=== PATIENT | female | born 1940 | race Caucasian/White ===

== ENCOUNTER 2016-09-24 11:43 | Inpatient (IN) | payer MEDICARE ==
[2016-09-24] MEDS ORDERED: NS 0.9% 1000 ML* 1,000 ML IV ONE (12:05)
[2016-09-24 12:22] LABS: Hematocrit 46 % (35-47); Hemoglobin 15.3 g/dl (12.0-16.0); Mean Corpuscular HGB Conc 34 g/dl (31-36); Mean Corpuscular Hemoglobin 30 pg (27-31); Mean Corpuscular Volume 88 fL (80-97); Mean Platelet Volume 11 um3 (7.4-10.4); Red Cell Distribution Width 15 % (10.5-15); White Blood Count 6.9 10^3/ul (3.5-10.8)
[2016-09-24 12:45] LABS: Albumin 3.4 g/dL (3.2-5.2); BUN/Creatinine Ratio 26.1 (8-20); C Reactive Protein 23.34 mg/L (< 5.00); Calcium 8.3 mg/dL (8.6-10.3); EGFR African American 46.4 (>60); EGFR Non-African American 36.1 (>60); Globulin 3.4 g/dL (2-4); Potassium 3.9 mmol/L (3.5-5.0); Total Bilirubin 0.3 mg/dL (0.2-1.0); Total Protein 6.8 g/dL (6.4-8.9)
[2016-09-24 12:47] LABS: Troponin I 0.01 ng/mL (<0.04)
--- NOTE | 2016-09-24 14:12 | RAD ---
Indication: Abdominal cramping. Flat and decubitus views of the abdomen demonstrates no free air. No dilated loops of bowel are noted. The colon is filled with stool. IMPRESSION: No free air or obstruction is noted.
[2016-09-24] MEDS ORDERED: metroNIDAZOLE TAB* 250 MG PO ONE (15:40)
[2016-09-24] MEDS ORDERED: Dextrose 50% Syringe 50 ML* 25 GM/50 ML SYRINGE IV PUSH PRN (16:24)
[2016-09-24] MEDS ORDERED: Acetaminophen TAB* 325 MG PO PRN (16:24)
[2016-09-24] MEDS ORDERED: Ondansetron INJ* 2 MG/ML VIAL IV PRN (16:24)
[2016-09-24] MEDS ORDERED: Albuterol HFA INHALER* 8 gm MDI INH PRN (16:27)
[2016-09-24] MEDS ORDERED: Warfarin TAB(*) 4 MG PO SCH (17:00)
[2016-09-24] MEDS: Insulin LISPRO* 1 UNITS UNIT SUBCUT SCH (17:21)
--- NOTE | 2016-09-24 17:35 | ED ---
Miquel Muñiz Alok, scribed for Juwan Garcia MD on 09/24/16 at 1328 . GI/ HPI - HPI Summary HPI Summary: 76 F presents to the ED with N/V/D since yesterday afternoon. 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 Pt last vomited at 0430 last night. Pt's inventory accountant also reports rectal bleeding with possible prolapse, leg swelling, and SOB. Pt is on Loperamide for chronic diarrhea and has had a cholecystectomy a few years prior. Pt denies any fever/chills and was last exposed to a sick grandchild with similar symptoms a few days ago. - History of Current Complaint Chief Complaint: EDAbdPain Time Seen by Provider: 09/24/16 11:58 Stated Complaint: WEAKNESS Hx Obtained From: Patient, Family/Wire Fence Erector Onset/Duration: Started Days Ago, Atraumatic, Still Present Timing: Constant, Lasting Days Severity: Moderate Current Severity: Moderate Pain Intensity: 0 Pain Characteristics: Cramping Associated Signs and Symptoms: Positive: Nausea, Vomiting, Diarrhea, Other: - Rectal Bleeding, SOB, LE edema. Negative: Diaphoresis, Fever Aggravating Factor(s): Nothing Alleviating Factor(s): Nothing - Additional Pertinent History Primary Care Physician: [id number] - Allergy/Home Medications Allergies/Adverse Reactions: Allergies Allergy/AdvReac Type Severity Reaction Status Date / Time No Known Allergies Allergy Verified 08/28/15 14:11 Home Medications: Home Medications Albuterol HFA INHALER* [Ventolin HFA Inhaler*] 1 puff INH Q4H PRN 09/24/16 [ History Confirmed 09/24/16] Lisinopril TAB* [Prinivil TAB*] 20 mg PO DAILY 09/24/16 [History Confirmed 09/24] Potassium Chloride Microencaps [Klor-Con M20] 20 meq PO DAILY 09/24/16 [History Confirmed 09/24/16] Pravastatin (NF) [Pravachol (NF)] 40 mg PO DAILY 09/24/16 [History Confirmed 12/05] Warfarin TAB(*) [Coumadin TAB(*)] 4 mg PO SUTUTHFRSA 09/24/16 [History Confirmed 09/24/16] glipiZIDE TAB.XL* [Glucotrol XL*] 5 mg PO QPM 09/24/16 [History Confirmed ] glipiZIDE TAB.XL* [Glucotrol XL*] 10 mg PO QAM 09/24/16 [History Confirmed 09/24] PMH/Surg Hx/FS Hx/Imm Hx Endocrine/Hematology History: Reports: Hx Diabetes, Hx Thyroid Disease - "operation" Cardiovascular History: Reports: Hx Cardiomegaly, Hx Congestive Heart Failure, Hx Coronary Artery Disease, Hx Hypercholesterolemia - HLD, Hx Hypertension, Other Cardiovascular Problems/Disorders - A-FIB Denies: Hx Pacemaker/ICD Respiratory History: Reports: Hx Chronic Bronchitis, Hx Pneumonia, Other Respiratory Problems/Disorders - PNEUMONIA 07/2013 Denies: Hx Asthma, Hx Chronic Obstructive Pulmonary Disease (COPD) GI History: Reports: Hx Gall Bladder Disease, Hx Gastroesophageal Reflux Disease , Hx Jaundice - RELATED TO GALLSTONES, Other GI Disorders - ERCP 2 weeks ago Denies: Hx Ulcer History: Reports: Other Problems/Disorders - RENAL FAILURE IN 2008- FUNCTION IMPROVED Denies: Hx Renal Disease Musculoskeletal History: Reports: Hx Arthritis - OSTEO- IN HANDS AND KNEES, Hx Gout, Other Musculoskeletal History - LEFT HUMERUS FX [id number] TENDER AT TIMES Denies: Hx Orthopedic Injury - NEW DX LEFT SHOULDER FX 07/03/13, Hx Osteoporosis Sensory History: Reports: Hx Cataracts - MILD, Hx Contacts or Glasses, Hx Glaucoma - SLIGHT-NO TREATMENT FOR Denies: Hx Hearing Aid Opthamlomology History: Reports: Hx Cataracts - MILD, Hx Contacts or Glasses, Hx Glaucoma - SLIGHT-NO TREATMENT FOR Neurological History: Reports: Hx Dementia, Hx Headaches - 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 PARTIAL THYROIDECTOMY. ERCP. choley Hx Anesthesia Reactions: Yes - SLOW TO WAKE UP AFTER ERCP - Immunization History Date of Tetanus Vaccine: PT STATES UNSURE Date of Influenza Vaccine: NONE Infectious Disease History: No Infectious Disease History: Denies: Hx Hepatitis, Hx Human Immunodeficiency Virus (HIV), History Other Infectious Disease, Traveled Outside the [place] in Last 30 Days - Family History Known Family History: Positive: Cardiac Disease, Hypertension - Social History Occupation: Retired Lives: Assisted Living Alcohol Use: None Substance Use Type: Reports: None Smoking Status (MU): Former Smoker Type: Cigarettes Amount Used/How Often: QUIT 50 YEARS AGO, USED ABOUT 1 YEAR Have You Smoked in the Last Year: No Review of Systems Negative: Fever Positive: Shortness Of Breath Positive: Vomiting, Diarrhea, Nausea Positive: other - Rectal bleeding Positive: Edema All Other Systems Reviewed And Are Negative: Yes Physical Exam - Summary Physical Exam Summary: VITAL SIGNS: Reviewed. GENERAL: ~Patient is a obese female who is lying comfortable in the stretcher. ~ Patient is not in any acute respiratory distress. HEAD AND FACE: Normocephalic EYES: PERRLA, EOMI x 2. EARS: Hearing grossly intact. MOUTH: Oropharynx within normal limits. NECK: Supple, trachea is midline, no adenopathy, no JVD, no carotid bruit. CHEST: Symmetric, no tenderness at palpation LUNGS: Clear to auscultation bilaterally. No wheezing or crackles. CVS: Regular rate and rhythm, S1 and S2 present, no murmurs or gallops appreciated. ABDOMEN: Soft, non-tender. Bowel sounds are normal. No abdominal abnormal pulsations. EXTREMITIES: Full ROM in all major joints, no edema, no cyanosis or clubbing. NEURO: Alert and oriented x 3. No acute neurological deficits. Speech is normal and follows commands. SKIN: Dry and warm. Increased Turgor. RECTAL: Watery stool. Large amount of external hemorrhoids but no external prolapse. Triage Information Reviewed: Yes Vital Signs On Initial Exam: Initial Vitals Pulse Pulse Ox 66 96 09/24/16 11:50 09/24/16 11:50 Vital Signs Reviewed: Yes Diagnostics - Vital Signs Vital Signs Temp Pulse Resp BP Pulse Ox 09/24/16 12:30 61 18 164/72 97 09/24/16 12:00 61 15 162/80 95 09/24/16 11:59 63 22 157/78 95 09/24/16 11:53 63 159/77 95 09/24/16 11:51 97.7 F 60 20 159/77 95 09/24/16 11:50 66 96 - Laboratory Lab Results: Lab Results 09/24/16 09/24/16 09/24/16 Range/Units 12:10 12:10 12:10 WBC 6.9 (3.5-10.8) 10^3/ul RBC 5.20 (4.0-5.4) 10^6/ul Hgb 15.3 (12.0-16.0) g/dl Hct 46 (35-47) % MCV 88 (80-97) fL MCH 30 (27-31) pg MCHC 34 (31-36) g/dl RDW 15 (10.5-15) % Plt Count 157 (150-450) 10^3/ul MPV 11 H (7.4-10.4) um3 Neut % (Auto) 83.0 (38-83) % Lymph % (Auto) 7.7 L (25-47) % [place] % (Auto) 7.8 (1-9) % Eos % (Auto) 1.0 (0-6) % Baso % (Auto) 0.5 (0-2) % Absolute Neuts (auto) 5.7 (1.5-7.7) 10^3/ul Absolute Lymphs (auto) 0.5 L (1.0-4.8) 10^3/ul Absolute Monos (auto) 0.5 (0-0.8) 10^3/ul Absolute Eos (auto) 0.1 (0-0.6) 10^3/ul Absolute Basos (auto) 0 (0-0.2) 10^3/ul Absolute Nucleated RBC 0 10^3/ul Nucleated RBC % 0 Sodium 138 (133-145) mmol/L Potassium 3.9 (3.5-5.0) mmol/L Chloride 110 (101-111) mmol/L Carbon Dioxide 19 L (22-32) mmol/L Anion Gap 9 (2-11) mmol/L BUN 37 H (6-24) mg/dL Creatinine 1.42 H (0.51-0.95) mg/dL Est GFR ( Amer) 46.4 (>60) Est GFR (Non-Af Amer) 36.1 (>60) BUN/Creatinine Ratio 26.1 H (8-20) Glucose 204 H (70-100) mg/dL Lactic Acid 1.8 (0.5-2.0) mmol/L Calcium 8.3 L (8.6-10.3) mg/dL Magnesium 2.0 (1.9-2.7) mg/dL Total Bilirubin 0.30 (0.2-1.0) mg/dL AST 24 (13-39) U/L ALT 21 (7-52) U/L Alkaline Phosphatase 69 (34-104) U/L Troponin I 0.01 (<0.04) ng/mL C-Reactive Protein 23.34 H (< 5.00) mg/L B-Natriuretic Peptide ( - 100) pg/mL Total Protein 6.8 (6.4-8.9) g/dL Albumin 3.4 (3.2-5.2) g/dL Globulin 3.4 (2-4) g/dL Albumin/Globulin Ratio 1.0 (1-3) Amylase 27 L (29-103) U/L Lipase 35 (11.0-82.0) U/L /12/05 Range/Units 12:10 WBC (3.5-10.8) 10^3/ul RBC (4.0-5.4) 10^6/ul Hgb (12.0-16.0) g/dl Hct (35-47) % MCV (80-97) fL MCH (27-31) pg MCHC (31-36) g/dl RDW (10.5-15) % Plt Count (150-450) 10^3/ul MPV (7.4-10.4) um3 Neut % (Auto) (38-83) % Lymph % (Auto) (25-47) % [place] % (Auto) (1-9) % Eos % (Auto) (0-6) % Baso % (Auto) (0-2) % Absolute Neuts (auto) (1.5-7.7) 10^3/ul Absolute Lymphs (auto) (1.0-4.8) 10^3/ul Absolute Monos (auto) (0-0.8) 10^3/ul Absolute Eos (auto) (0-0.6) 10^3/ul Absolute Basos (auto) (0-0.2) 10^3/ul Absolute Nucleated RBC 10^3/ul Nucleated RBC % Sodium (133-145) mmol/L Potassium (3.5-5.0) mmol/L Chloride (101-111) mmol/L Carbon Dioxide (22-32) mmol/L Anion Gap (2-11) mmol/L BUN (6-24) mg/dL Creatinine (0.51-0.95) mg/dL Est GFR ( Amer) (>60) Est GFR (Non-Af Amer) (>60) BUN/Creatinine Ratio (8-20) Glucose (70-100) mg/dL Lactic Acid (0.5-2.0) mmol/L Calcium (8.6-10.3) mg/dL Magnesium (1.9-2.7) mg/dL Total Bilirubin (0.2-1.0) mg/dL AST (13-39) U/L ALT (7-52) U/L Alkaline Phosphatase (34-104) U/L Troponin I (<0.04) ng/mL C-Reactive Protein (< 5.00) mg/L B-Natriuretic Peptide 157 H ( - 100) pg/mL Total Protein (6.4-8.9) g/dL Albumin (3.2-5.2) g/dL Globulin (2-4) g/dL Albumin/Globulin Ratio (1-3) Amylase (29-103) U/L Lipase (11.0-82.0) U/L Result Diagrams: 09/24/16 12:10 09/24/16 12:10 Lab Statement: Any lab studies that have been ordered have been reviewed, and results considered in the medical decision making process. - Radiology Abd XRAY Xray Interpretation: Positive (See Comments) - IMPRESSION: No free air or obstruction is noted. Radiology Interpretation Completed By: Radiologist - EKG 1237 Cardiac Rate: NL EKG Rhythm: Sinus Rhythm - 61 bpm EKG Interpretation: No ST elevation GIGU Course/Dx - Course Course Of Treatment: 76 F presents to the ED with N/V/D since yesterday afternoon. 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 Pt last vomited at 0430 last night. Pt's inventory accountant also reports rectal bleeding with possible prolapse, leg swelling , and SOB. Pt is on Loperamide for chronic diarrhea and has had a cholecystectomy a few years prior. Pt denies any fever/chills and was last exposed to a sick grandchild with similar symptoms a few days ago. Assessment/Plan: Blood work within nml limits except for BUN 37 H, Creatinine 1.42 H consistent with acute renal failure. CRP 23.34, glucose 204 H. Stool cultures show positive C.diff. Abd XRay IMPRESSION: No free air or obstruction is noted. EKG shows NSR [address] elevations. Pt hydrated with IV fluids and she was started in Flagyl for C.diff. Pt is hemodynamically stable and has no other complaints. Discussed case with Dr. Odell (Hospitalist) who agreed to admit pt. - Diagnoses Differential Diagnoses - Female: Constipation, Colitis, Dehydration, Vomiting Provider Diagnoses: C. difficile diarrhea, Nausea and vomiting, Renal insufficiency - Physician Notifications Discussed Care Of Patient With: Dr. Odell (Hospitalist) @ [id number] Discharge - Discharge Plan Condition: Stable Disposition: ADMITTED TO [facility] documentation as recorded by the Miquel faulkner Alok accurately reflects the service I personally performed and the decisions made by , Juwan Garcia MD.
[2016-09-24] MEDS: NS 0.9% 1000 ML* 1,000 ML IV SCH (18:37)
[2016-09-24] MEDS: metroNIDAZOLE TAB* 250 MG PO SCH (20:54)
[2016-09-24] MEDS: Carvedilol TAB* 6.25 MG PO SCH (20:55)
--- NOTE | 2016-09-24 23:45 | HP ---
HISTORY AND PHYSICAL: DATE OF ADMISSION: 09/24/16 PRIMARY CARE PROVIDER: Josiah Ordoñez NP ATTENDING PHYSICIAN WHILE IN THE HOSPITAL: Michelle Conway MD *(report dictated by Luis Keith NP) CHIEF COMPLAINT: Diarrhea. HISTORY OF PRESENT ILLNESS: Ms. Agarwal is a 76-year-old female patient. She has a history of pancreatitis in the past after ERCP; choledocholithiasis; dementia ; CVA; AFib; CHF, last EF 55% to 60%; CKD stage 3; CAD; hypertension; depression ; diabetes; and COPD. She comes in to the ER today, stating that she the last couple of days was having some loose stools more than her baseline, and her son felt that it may have been related to the fact that their grandchild had recently had a GI bug (that is what they called) and was having diarrhea and her symptoms were similar and followed. However, over the last 36 to 24 hours, the symptoms have changed significantly. She has been having more liquidy diarrhea. She does admit to having blood in it at times. She says that she has been having cramping right before she goes and she says the diarrhea is uncontrollable. She says at times, she feels like she is going every 10 minutes. The sons note that her commode down by her bedroom was full today of just liquidy diarrhea and said that it had changed significantly and the patient says that it has been more violent and explosive at times. The patient says that she had one episode of vomiting today. She denies having any abdominal pain. She says that her abdomen does not feel distended. She denied having any fevers or chills, but she does state that she feels very weak. Denies any chest pain or shortness of breath. The family was concerned because the diarrhea was not getting any better, it was getting worse, so they brought her in. They were worried about her becoming dehydrated. She was evaluated in the ED and it was ultimately found on stool studies that she was positive for C. difficile. Hospitalist service was asked to evaluate for admission. PAST MEDICAL HISTORY: Significant for: 1. Pancreatitis after ERCP. 2. Choledocholithiasis. 3. Dementia. 4. CVA. 5. AFib. 6. CHF. 7. CKD stage 3. 8. CAD. 9. Hypertension. 10. Depression. 11. Diabetes. 12. COPD. PAST SURGICAL HISTORY: 1. She has had a laparoscopic cholecystectomy. 2. ERCP. HOME MEDICATIONS: According to the list that was provided include: 1. Glipizide 10 mg in the morning and 5 mg at night. 2. Coumadin 4 mg Wednesday, Wednesday, Wednesday, Wednesday, and Wednesday and 2 mg on Wednesday and Wednesday. 3. Zoloft 100 mg daily. 4. Pravachol 40 mg daily. 5. Klor-Con 20 mEq p.o. daily. 6. Imodium 2 mg p.o. daily as needed. 7. Lisinopril 20 mg daily. 8. Lasix 20 mg p.o. Wednesday, Wednesday, Wednesday, , and Wednesday. 9. Aricept 10 mg daily. 10. Carvedilol 12.5 mg p.o. b.i.d. 11. Ventolin 1 puff inhaled every 4 hours as needed. ALLERGIES TO MEDICATIONS: Include no known drug allergies. FAMILY HISTORY: Her mother had a history of heart disease. Father of old age according to the family. SOCIAL HISTORY: She is a former smoker when she was a teenager. She does not drink alcohol. She lives with her son who is also her surrogate decision maker. REVIEW OF SYSTEMS: There is no documented fever. She denied any significant weight change. There was no double vision. There is no ear discharge. She denied having any rhinorrhea. No sore throat. No thyroid enlargement. She denies having any chest pain. No orthopnea. No nocturnal dyspnea. There is no abdominal pain with the exception prior to having diarrhea, she did have some lower abdominal cramping, but then it goes away. She does admit to having diarrhea. There was one episode with nausea and vomiting. No dysuria. No frequency. No loss of consciousness. No pruritus. No skin ulcerations. Review of 14 systems completed, all others negative. PHYSICAL EXAMINATION GENERAL: At this time, Ms. Agarwal is a 76-year-old female patient. She is sitting in the ER stretcher. She does not appear to be in any acute distress. VITAL SIGNS: Reveals blood pressure 167/71 with a pulse of 67, respirations 18 , O2 sat 96%, and temperature 97.7. HEENT: Head is atraumatic and normocephalic. Eyes: EOMs intact. Sclerae are anicteric and not pale. NECK: Supple. Throat: Oral mucosa appears to be dry. No oropharyngeal erythema. LUNGS: Clear to auscultation bilaterally. No wheezes, rales, or rhonchi. HEART: Sounds S1, S2. Regular rate and rhythm. No murmurs, rubs, or gallops. ABDOMEN: Soft, it was flat, and nontender. Bowel sounds present. EXTREMITIES: Pulses were 2+ throughout. She is able to move all 4 extremities with 5/5 strength. NEUROLOGIC: The patient is awake, alert, and oriented x3. Sanitary Napkin Machine Tender equal. Tongue midline. No gross focal deficits. SKIN: Intact. DIAGNOSTIC STUDIES/LAB DATA: Revealed WBC of 6.9, RBC of 5.20, hemoglobin 15.3 , hematocrit of 46, and platelet count of 157. Sodium 138; potassium 3.9; chloride of 110; bicarb was 19; BUN 37; creatinine of 1.42, her baseline appears to be right around 1.2; glucose of 204; lactic 1.8; calcium 8.3; and magnesium 2.0. Total bili 0.3, AST 24, ALT 21, and alk phos 69. Troponin 0.01. CRP of 23. Albumin of 3.4, lipase 35, and amylase 27. Abdominal x-ray showed no free air or obstruction noted. EKG shows a normal sinus rhythm, rate of 61 with a left bundle-branch block. It was reviewed with the previous EKG from 2 years ago, a similar EKG with a left bundle-branch block. No acute changes noted. Again, microbiology did show a C. difficile positive. Old medical records were reviewed. ASSESSMENT AND PLAN: Ms. Agarwal is a 76-year-old female patient coming in to the ER today with complaints of diarrhea and found to have C. difficile. She will be admitted under observation status for: 1. C. difficile: At this point, she again does not have a high white count. CRP is stable. I would like to start her on t.i.d. Flagyl p.o., hydrate her as she does appear to be dehydrated and continue to follow. She did have some bloody diarrhea, which goes against the C. diff; however, it was positive on assay. I would like to treat her and see if this helps to decrease the number of bowel movements as this is making her profoundly weak. I have also ordered a PT evaluation. The number of bowel movements has decreased and she is feeling better. If possible, discharge tomorrow. 2. Atrial fibrillation: Again, she is on Coumadin. Her INR this morning outpatient was 4.52. So, we will hold her Coumadin until this drifts down to the normal range. She could follow up with her primary. She does not appear to be in atrial fibrillation at this point. We will continue her current medical regimen. 3. History of pancreatitis and choledocholithiasis: Not active issues. 4. Dementia: Supportive care will be continued. 5. History of cerebrovascular accident: Continue with secondary prevention. We will restart the Coumadin when able and she is on a statin therapy. 6. Congestive heart failure: She does not appear to be in acute failure. She actually appears to be dehydrated. She got 1 L of fluid here in the ER. I will give her one more overnight at 75 an hour. We will hold her Lasix and lisinopril and restart when able. 7. Chronic kidney disease with a component of acute renal failure: Again this probably is prerenal. Her creatinine is up a little bit. We will trend these and follow and give her fluids. If it does not come down, we may need to consider getting a FENa and renal ultrasound. 8. Coronary artery disease: Continue with her current medical regimen. She is on beta jay and statin, continue. 9. Diabetes: She will be on a lispro sliding scale. 10. History of chronic obstructive pulmonary disease: I have ordered p.r.n. albuterol. 11. Code status: She does have a MOLST form filled out and she is a DNR. 12. Fluids, electrolytes, and nutrition: She can have a consistent carb diet. TIME SPENT: Time spent on the admission was 60 minutes; greater than half the time was spent [id number] with the patient obtaining my history and physical, the other half time is spent going over the plan of care with the patient and implementing the plan of care. I discussed the plan of care with my attending, Dr. Conway. She is in agreement. LUIS KEITH NP CC: Josiah Ordoñez NP* [id number]/[facility] #: [id number] JACOBY
[2016-09-25 06:58] LABS: Hematocrit 40 % (35-47); Hemoglobin 13.3 g/dl (12.0-16.0); Mean Corpuscular HGB Conc 33 g/dl (31-36); Mean Corpuscular Hemoglobin 29 pg (27-31); Mean Corpuscular Volume 88 fL (80-97); Mean Platelet Volume 10 um3 (7.4-10.4); Red Blood Count 4.54 10^6/ul (4.0-5.4); Red Cell Distribution Width 15 % (10.5-15); White Blood Count 5.5 10^3/ul (3.5-10.8)
[2016-09-25 07:10] LABS: BUN/Creatinine Ratio 24.6 (8-20); Calcium 7.6 mg/dL (8.6-10.3); EGFR African American 53.2 (>60); EGFR Non-African American 41.4 (>60); Potassium 3.8 mmol/L (3.5-5.0)
--- NOTE | 2016-09-25 08:14 | PN ---
Subjective Date of Service: 09/25/16 Interval History: Patient seen this morning. Says she is feeling better. Tolerated dinner last night with no N/V. Denies abdominal pain. No diarrhea since yesterday. Feels significantly weaker than normal, as per nursing required 2 assist to bathroom. Family History: Unchanged from Admission Social History: Unchanged from Admission Past Medical History: Unchanged from Admission Objective Active Medications: Acetaminophen (Tylenol Tab*) 650 mg PO Q4H PRN Albuterol (Ventolin Hfa Inhaler*) 1 puff INH Q4H PRN Atorvastatin Calcium (Lipitor*) 10 mg PO DAILY GABE Carvedilol (Coreg Tab*) 12.5 mg PO BID [facility] Dextrose (D50w Syringe 50 Ml*) 12.5 gm IV PUSH .FOR FS < 60 - SS PRN Donepezil HCl (Aricept Tab*) 10 mg PO QAM [facility] Sodium Chloride (Ns 0.9% 1000 Ml*) 1,000 mls @ 75 mls/hr IV PER RATE [facility] Insulin Human Lispro (Humalog*) 0 units SUBCUT AC [facility] Metronidazole (Flagyl Tab*) 500 mg PO TID GABE Ondansetron HCl (Zofran Inj*) 4 mg IV Q6H PRN Potassium Chloride (Klor Con Er Tab*) 20 meq PO DAILY GABE Sertraline HCl (Zoloft*) 100 mg PO DAILY [facility] Vital Signs 09/24/16 09/24/16 09/25/16 17:21 23:27 03:41 Temperature 97.7 F 97.3 F 97.2 F Pulse Rate 63 58 60 Respiratory 18 17 16 Rate Blood Pressure 143/34 187/63 147/75 (mmHg) O2 Sat by Pulse 98 95 98 Oximetry 09/25/16 06:32 Temperature 97.4 F Pulse Rate 51 Respiratory 16 Rate Blood Pressure 133/51 (mmHg) O2 Sat by Pulse 99 Oximetry Oxygen Devices in Use Now: None Appearance: Elderly, F, sitting in chair in NAD Eyes: No Scleral Icterus Ears/Nose/Mouth/Throat: Mucous Membranes Moist Neck: NL Appearance and Movements; NL JVP Respiratory: Symmetrical Chest Expansion and Respiratory Effort, Clear to Auscultation Cardiovascular: NL Sounds; No Murmurs; No JVD, RRR Abdominal: - - Soft, NTND, BS hyperactive, no rebound/guarding Lymphatic: No Cervical Adenopathy Extremities: No Edema Skin: No Rash or Ulcers Neurological: Alert and Oriented x 3 Result Diagrams: 09/25/16 06:25 09/25/16 06:25 Assess/Plan/Problems-Billing Assessment: C diff colitis in a 76 yo F with hx of HTN, CAD, CKD3, AFib, CVA, dementia, DM, COPD, CHF - Patient Problems (1) C. difficile colitis Current Visit: Yes Comment: Improving. Continue PO Flagyl. Complete this bag of IVF. Will need PT eval as this seems to have made patient significantly weaker than baseline (2) Afib Current Visit: No Comment: Seems to be in sinus rhythm. Continue Coreg. Holding coumadin with elevated INR. (3) TIFFANI (acute kidney injury) Current Visit: Yes Comment: in CKD. Resolved with IVF. Continue to encourage PO intake after this IV bag. (4) CAD (coronary artery disease) Current Visit: No Comment: Continue coreg, statin (5) Type 2 diabetes mellitus Current Visit: No Comment: Continue HISS. Hold home glipizide. (6) DVT prophylaxis Current Visit: Yes Comment: Elevated INR Status and Disposition: Pending PT eval
[2016-09-25] MEDS: Donepezil TAB* 5 MG PO SCH (08:23)
[2016-09-25] MEDS: Potassium Chlor TAB* 20 MEQ TAB.ER PO SCH (08:23)
[2016-09-25] MEDS: Sertraline* 100 MG TAB PO SCH (08:24)
[2016-09-25] MEDS: Carvedilol TAB* 6.25 MG PO SCH ×2 (08:24→21:13)
[2016-09-25] MEDS: Atorvastatin* 10 MG TAB PO SCH (08:24)
[2016-09-25] MEDS: metroNIDAZOLE TAB* 250 MG PO SCH ×3 (08:24→21:13)
[2016-09-25] MEDS: Insulin LISPRO* 1 UNITS UNIT SUBCUT SCH ×3 (08:25→17:38)
[2016-09-25] MEDS: NS 0.9% 1000 ML* 1,000 ML IV SCH (10:15)
--- NOTE | 2016-09-26 07:43 | PN ---
Subjective Date of Service: 09/26/16 Interval History: Patient seen this morning. Still having frequent stools, often happening in bed. No fever or chills. Reports some abdominal discomfort prior to BMs which resolves when she goes. Has been eating and drinking well, no N/V. Family History: Unchanged from Admission Social History: Unchanged from Admission Past Medical History: Unchanged from Admission Objective Active Medications: Acetaminophen (Tylenol Tab*) 650 mg PO Q4H PRN PRN Reason: FEVER/PAIN Last Admin: 09/24/16 23:33 Dose: 650 mg Albuterol (Ventolin Hfa Inhaler*) 1 puff INH Q4H PRN PRN Reason: SHORTNESS OF BREATH Atorvastatin Calcium (Lipitor*) 10 mg PO DAILY [facility] PRN Reason: Protocol Last Admin: 09/25/16 08:24 Dose: 10 mg Carvedilol (Coreg Tab*) 12.5 mg PO BID [facility] Last Admin: 09/25/16 21:13 Dose: 12.5 mg Dextrose (D50w Syringe 50 Ml*) 12.5 gm IV PUSH .FOR FS < 60 - SS PRN PRN Reason: FS < 60 Donepezil HCl (Aricept Tab*) 10 mg PO QAM [facility] Last Admin: 09/25/16 08:23 Dose: 10 mg Sodium Chloride (Ns 0.9% 1000 Ml*) 1,000 mls @ 75 mls/hr IV PER RATE [facility] Last Admin: 09/25/16 10:15 Dose: 75 mls/hr Insulin Human Lispro (Humalog*) 0 units SUBCUT AC [facility] PRN Reason: Protocol Last Admin: 09/25/16 17:38 Dose: 3 units Lisinopril (Prinivil Tab*) 20 mg PO DAILY [facility] Metronidazole (Flagyl Tab*) 500 mg PO TID [facility] Last Admin: 09/25/16 21:13 Dose: 500 mg Ondansetron HCl (Zofran Inj*) 4 mg IV Q6H PRN PRN Reason: NAUSEA Potassium Chloride (Klor Con Er Tab*) 20 meq PO DAILY [facility] Last Admin: 09/25/16 08:23 Dose: 20 meq Sertraline HCl (Zoloft*) 100 mg PO DAILY [facility] Last Admin: 09/25/16 08:24 Dose: 100 mg Vital Signs 09/25/16 09/25/16 09/25/16 15:19 19:40 21:15 Temperature 97.8 F 98.0 F Pulse Rate 58 59 Respiratory 20 20 20 Rate Blood Pressure 143/55 168/69 (mmHg) O2 Sat by Pulse 99 99 Oximetry 09/25/16 23:06 Temperature 97.9 F Pulse Rate 63 Respiratory 16 Rate Blood Pressure 163/65 (mmHg) O2 Sat by Pulse 100 Oximetry Oxygen Devices in Use Now: None Appearance: Elderly, F, laying in bed in NAD Eyes: No Scleral Icterus Ears/Nose/Mouth/Throat: Mucous Membranes Moist Neck: NL Appearance and Movements; NL JVP Respiratory: Symmetrical Chest Expansion and Respiratory Effort, - - Slight wheezing, good air movement Cardiovascular: NL Sounds; No Murmurs; No JVD, RRR Abdominal: - - Soft, non-distended, minimal TTP diffusely, no rebound/guarding, BS+ Lymphatic: No Cervical Adenopathy Extremities: No Edema Skin: No Rash or Ulcers Neurological: Alert and Oriented x 3 Result Diagrams: 09/25/16 06:25 09/25/16 06:25 Additional Lab and Data: Assess/Plan/Problems-Billing Assessment: C diff colitis in a 76 yo F with hx of HTN, CAD, CKD3, AFib, CVA, dementia, DM, COPD, CHF - Patient Problems (1) C. difficile colitis Current Visit: Yes Comment: Continue PO Flagyl. Recheck BMP this morning, may need additional IVF. (2) Afib Current Visit: No Comment: Seems to be in sinus rhythm. Continue Coreg. Holding coumadin with elevated INR. (3) TIFFANI (acute kidney injury) Current Visit: Yes Comment: on CKD. Recheck BMP this AM (4) CAD (coronary artery disease) Current Visit: No Comment: Continue coreg, statin (5) Type 2 diabetes mellitus Current Visit: No Comment: Continue HISS. Hold home glipizide. (6) HTN (hypertension) Current Visit: No Comment: Restart home Lisinopril. Continue carvedilol. Holding Lasix. (7) DVT prophylaxis Current Visit: Yes Comment: Elevated INR Status and Disposition: Pending improvement in symptoms
[2016-09-26] MEDS: Potassium Chlor TAB* 20 MEQ TAB.ER PO SCH (10:55)
[2016-09-26] MEDS: Atorvastatin* 10 MG TAB PO SCH (10:55)
[2016-09-26] MEDS: Carvedilol TAB* 6.25 MG PO SCH ×2 (10:55→21:01)
[2016-09-26] MEDS: Sertraline* 100 MG TAB PO SCH (10:55)
[2016-09-26] MEDS: Lisinopril TAB* 10 MG PO SCH (10:55)
[2016-09-26] MEDS: Donepezil TAB* 5 MG PO SCH (10:56)
[2016-09-26] MEDS: metroNIDAZOLE TAB* 250 MG PO SCH ×3 (10:56→21:00)
[2016-09-26] MEDS: Insulin LISPRO* 1 UNITS UNIT SUBCUT SCH ×3 (11:07→17:16)
[2016-09-26 11:28] LABS: BUN/Creatinine Ratio 23.7 (8-20); Calcium 7.4 mg/dL (8.6-10.3); EGFR African American 59.8 (>60); EGFR Non-African American 46.5 (>60)
[2016-09-26] MEDS ORDERED: hydrALAZINE IV* 20 MG/ML VIAL IV SLOW PU PRN (18:30)
[2016-09-27 06:31] LABS: BUN/Creatinine Ratio 20.7 (8-20); Calcium 7.7 mg/dL (8.6-10.3); EGFR African American 61.6 (>60); EGFR Non-African American 47.9 (>60); Potassium 4.1 mmol/L (3.5-5.0)
[2016-09-27] MEDS: Carvedilol TAB* 6.25 MG PO SCH ×2 (08:46→21:10)
[2016-09-27] MEDS: metroNIDAZOLE TAB* 250 MG PO SCH ×3 (08:46→21:10)
[2016-09-27] MEDS: Sertraline* 100 MG TAB PO SCH (08:46)
[2016-09-27] MEDS: Lisinopril TAB* 10 MG PO SCH (08:46)
[2016-09-27] MEDS: Donepezil TAB* 5 MG PO SCH (08:46)
[2016-09-27] MEDS: Atorvastatin* 10 MG TAB PO SCH (08:46)
[2016-09-27] MEDS: Potassium Chlor TAB* 20 MEQ TAB.ER PO SCH (08:47)
[2016-09-27] MEDS: Insulin LISPRO* 1 UNITS UNIT SUBCUT SCH ×3 (08:47→17:58)
--- NOTE | 2016-09-27 09:22 | PN ---
Subjective Date of Service: 09/27/16 Interval History: pt had 5 liquid BM's last night. Denies abd pain. Good appetite Family History: Unchanged from Admission Social History: Unchanged from Admission Past Medical History: Unchanged from Admission Objective Active Medications: Acetaminophen (Tylenol Tab*) 650 mg PO Q4H PRN PRN Reason: FEVER/PAIN Last Admin: 09/24/16 23:33 Dose: 650 mg Albuterol (Ventolin Hfa Inhaler*) 1 puff INH Q4H PRN PRN Reason: SHORTNESS OF BREATH Atorvastatin Calcium (Lipitor*) 10 mg PO DAILY [facility] PRN Reason: Protocol Last Admin: 09/27/16 08:46 Dose: 10 mg Carvedilol (Coreg Tab*) 12.5 mg PO BID [facility] Last Admin: 09/27/16 08:46 Dose: 12.5 mg Dextrose (D50w Syringe 50 Ml*) 12.5 gm IV PUSH .FOR FS < 60 - SS PRN PRN Reason: FS < 60 Donepezil HCl (Aricept Tab*) 10 mg PO QAM [facility] Last Admin: 09/27/16 08:46 Dose: 10 mg Hydralazine HCl (Apresoline Iv*) 10 mg IV SLOW PU Q6H PRN PRN Reason: SBP > 180 Insulin Human Lispro (Humalog*) 0 units SUBCUT AC [facility] PRN Reason: Protocol Last Admin: 09/27/16 08:47 Dose: 3 units Lisinopril (Prinivil Tab*) 20 mg PO DAILY [facility] Last Admin: 09/27/16 08:46 Dose: 20 mg Metronidazole (Flagyl Tab*) 500 mg PO TID [facility] Last Admin: 09/27/16 08:46 Dose: 500 mg Ondansetron HCl (Zofran Inj*) 4 mg IV Q6H PRN PRN Reason: NAUSEA Potassium Chloride (Klor Con Er Tab*) 20 meq PO DAILY [facility] Last Admin: 09/27/16 08:47 Dose: 20 meq Sertraline HCl (Zoloft*) 100 mg PO DAILY [facility] Last Admin: 09/27/16 08:46 Dose: 100 mg Vital Signs 09/26/16 09/26/16 09/26/16 16:10 20:00 23:52 Temperature 98.6 F 97.3 F Pulse Rate 56 60 Respiratory 24 22 20 Rate Blood Pressure 175/78 152/56 (mmHg) O2 Sat by Pulse 100 97 Oximetry 09/27/16 09/27/16 08:00 08:04 Temperature 97.8 F Pulse Rate 56 Respiratory 20 20 Rate Blood Pressure 146/59 (mmHg) O2 Sat by Pulse 99 Oximetry Oxygen Devices in Use Now: None Appearance: 76 yo f in nAD, aAOx3 Eyes: No Scleral Icterus, PERRLA Ears/Nose/Mouth/Throat: NL Teeth, Lips, Gums, Mucous Membranes Moist Neck: NL Appearance and Movements; NL JVP, Trachea Midline Respiratory: Symmetrical Chest Expansion and Respiratory Effort, Clear to Auscultation Cardiovascular: NL Sounds; No Murmurs; No JVD, RRR Abdominal: NL Sounds; No Tenderness; No Distention, No Hepatosplenomegaly Lymphatic: No Cervical Adenopathy Extremities: No Clubbing, Cyanosis, - - trace pedal edema b/l Skin: No Rash or Ulcers, No Nodules or Sclerosis Neurological: Alert and Oriented x 3, NL Muscle Strength and Tone Result Diagrams: 09/25/16 06:25 09/27/16 06:00 Additional Lab and Data: Assess/Plan/Problems-Billing Assessment: C diff colitis in a 76 yo F with hx of HTN, CAD, CKD3, AFib, CVA, dementia, DM, COPD, CHF - Patient Problems (1) C. difficile colitis Comment: Continue PO Flagyl. improving. most likely will be able to go home tomorrow (2) CHF (congestive heart failure) Comment: clinically euvolemic. H/o diastolic CHF, EF 55% in the past (3) Afib Comment: Seems to be in sinus rhythm. Continue Coreg. Holding coumadin with elevated INR. (4) HTN (hypertension) Comment: controlled. cont Lisinopril. Continue carvedilol. Will restart Lasix (5) Type 2 diabetes mellitus Comment: Continue HISS. Hold home glipizide. (6) TIFFANI (acute kidney injury) Comment: on CKD stage 3 due to DM2 Creat back to baseline today (7) DVT prophylaxis Comment: Elevated INR Status and Disposition: Pending improvement in symptoms likely d/c in aM
[2016-09-27] MEDS ORDERED: Furosemide TAB* 20 MG PO ONE (09:23)
[2016-09-28] MEDS: Lisinopril TAB* 10 MG PO SCH (08:32)
[2016-09-28] MEDS: Potassium Chlor TAB* 20 MEQ TAB.ER PO SCH (08:33)
[2016-09-28] MEDS: metroNIDAZOLE TAB* 250 MG PO SCH ×3 (08:33→20:15)
[2016-09-28] MEDS: Sertraline* 100 MG TAB PO SCH (08:34)
[2016-09-28] MEDS: Donepezil TAB* 5 MG PO SCH (08:34)
[2016-09-28] MEDS: Carvedilol TAB* 6.25 MG PO SCH ×2 (08:34→20:16)
[2016-09-28] MEDS: Atorvastatin* 10 MG TAB PO SCH (08:34)
[2016-09-28] MEDS: Insulin LISPRO* 1 UNITS UNIT SUBCUT SCH ×3 (08:36→17:16)
[2016-09-28] MEDS: Furosemide TAB* 40 MG PO SCH (08:37)
--- NOTE | 2016-09-28 11:20 | PN ---
Subjective Date of Service: 09/28/16 Interval History: Pt had 4 loose BS at night and one loose stool incontinence in AM. no abd pain Stated that she doesn't feel safe going home, due to her 12 yo step - granddaughter telling pt that "everyone wants her ". Family History: Unchanged from Admission Social History: Unchanged from Admission Past Medical History: Unchanged from Admission Objective Active Medications: Acetaminophen (Tylenol Tab*) 650 mg PO Q4H PRN PRN Reason: FEVER/PAIN Last Admin: 09/24/16 23:33 Dose: 650 mg Albuterol (Ventolin Hfa Inhaler*) 1 puff INH Q4H PRN PRN Reason: SHORTNESS OF BREATH Atorvastatin Calcium (Lipitor*) 10 mg PO DAILY [facility] PRN Reason: Protocol Last Admin: 09/28/16 08:34 Dose: 10 mg Carvedilol (Coreg Tab*) 12.5 mg PO BID [facility] Last Admin: 09/28/16 08:34 Dose: 12.5 mg Dextrose (D50w Syringe 50 Ml*) 12.5 gm IV PUSH .FOR FS < 60 - SS PRN PRN Reason: FS < 60 Donepezil HCl (Aricept Tab*) 10 mg PO QAM [facility] Last Admin: 09/28/16 08:34 Dose: 10 mg Furosemide (Lasix Tab*) 20 mg PO [id number]@0900 [facility] Last Admin: 09/28/16 08:37 Dose: 20 mg Hydralazine HCl (Apresoline Iv*) 10 mg IV SLOW PU Q6H PRN PRN Reason: SBP > 180 Insulin Human Lispro (Humalog*) 0 units SUBCUT AC [facility] PRN Reason: Protocol Last Admin: 09/28/16 08:36 Dose: 3 units Lisinopril (Prinivil Tab*) 20 mg PO DAILY [facility] Last Admin: 09/28/16 08:32 Dose: 20 mg Metronidazole (Flagyl Tab*) 500 mg PO TID [facility] Last Admin: 09/28/16 08:33 Dose: 500 mg Ondansetron HCl (Zofran Inj*) 4 mg IV Q6H PRN PRN Reason: NAUSEA Potassium Chloride (Klor Con Er Tab*) 20 meq PO DAILY [facility] Last Admin: 09/28/16 08:33 Dose: 20 meq Sertraline HCl (Zoloft*) 100 mg PO DAILY [facility] Last Admin: 09/28/16 08:34 Dose: 100 mg Warfarin Sodium (Coumadin Tab(*)) 4 mg PO DAILY@1700 [facility] PRN Reason: Protocol Vital Signs 09/27/16 09/27/16 09/27/16 16:38 21:11 23:38 Temperature 97.3 F 97.5 F Pulse Rate 63 65 Respiratory 18 20 Rate Blood Pressure 156/73 171/64 (mmHg) O2 Sat by Pulse 98 99 Oximetry 09/28/16 09/28/16 09/28/16 07:57 08:00 09:55 Temperature Pulse Rate 58 63 Respiratory 18 16 Rate Blood Pressure 184/75 160/71 (mmHg) O2 Sat by Pulse 100 Oximetry Oxygen Devices in Use Now: None Appearance: 76 yo F in nAd, aAOx3 Eyes: No Scleral Icterus, PERRLA Ears/Nose/Mouth/Throat: NL Teeth, Lips, Gums, Mucous Membranes Moist Neck: NL Appearance and Movements; NL JVP, Trachea Midline Respiratory: Symmetrical Chest Expansion and Respiratory Effort, Clear to Auscultation Cardiovascular: NL Sounds; No Murmurs; No JVD, RRR Lymphatic: No Cervical Adenopathy Extremities: No Clubbing, Cyanosis, - - trace b/l pedal edema Skin: No Rash or Ulcers, No Nodules or Sclerosis Neurological: Alert and Oriented x 3, NL Muscle Strength and Tone Result Diagrams: 09/25/16 06:25 09/27/16 06:00 Additional Lab and Data: Assess/Plan/Problems-Billing Assessment: C diff colitis in a 76 yo F with hx of HTN, CAD, CKD3, AFib, CVA, dementia, DM, COPD, CHF - Patient Problems (1) C. difficile colitis Comment: Continue PO Flagyl. improving, but feels unsafe at home. SW/OT eval pending (2) CHF (congestive heart failure) Comment: clinically euvolemic. H/o diastolic CHF, EF 55% in the past cont outpatient Lasix (3) Afib Comment: Seems to be in sinus rhythm. Continue Coreg. restarting Coumadin today (4) HTN (hypertension) Comment: uncontrolled. adding Norvasc cont Lisinopril. Continue carvedilol. (5) Type 2 diabetes mellitus Comment: Continue HISS. Hold home glipizide. (6) TIFFANI (acute kidney injury) Comment: on CKD stage 3 due to DM2 Creat back to baseline (7) DVT prophylaxis Comment: INR 2.2 today. coumadin to be restarted this PM Status and Disposition: Awaiting SW/OT eval. Inpatient
[2016-09-28] MEDS: amLODIPine TAB* 5 MG PO SCH (13:07)
[2016-09-28] MEDS ORDERED: Warfarin TAB(*) 4 MG PO SCH ×2 (16:27→17:00)
[2016-09-29 07:29] LABS: BUN/Creatinine Ratio 23.9 (8-20); Calcium 8.3 mg/dL (8.6-10.3); EGFR African American 60.4 (>60); EGFR Non-African American 46.9 (>60); Potassium 4.1 mmol/L (3.5-5.0)
[2016-09-29] MEDS: amLODIPine TAB* 5 MG PO SCH (09:23)
[2016-09-29] MEDS: Carvedilol TAB* 6.25 MG PO SCH (09:23)
[2016-09-29] MEDS: Potassium Chlor TAB* 20 MEQ TAB.ER PO SCH (09:23)
[2016-09-29] MEDS: Donepezil TAB* 5 MG PO SCH (09:23)
[2016-09-29] MEDS: Lisinopril TAB* 10 MG PO SCH (09:23)
[2016-09-29] MEDS: Sertraline* 100 MG TAB PO SCH (09:23)
[2016-09-29] MEDS: metroNIDAZOLE TAB* 250 MG PO SCH ×2 (09:23→12:51)
[2016-09-29] MEDS: Atorvastatin* 10 MG TAB PO SCH (09:23)
[2016-09-29] MEDS: Insulin LISPRO* 1 UNITS UNIT SUBCUT SCH ×2 (09:28→12:51)
[2016-09-29] MEDS: Furosemide TAB* 40 MG PO SCH (09:30)
[2016-09-29 11:46] VITALS: BP 153/79
--- NOTE | 2016-09-30 01:32 | DS ---
DISCHARGE SUMMARY: DATE OF ADMISSION: 09/24/16 DATE OF DISCHARGE: 09/29/16 PRIMARY CARE PROVIDER: Josiah Ordoñez NP DISCHARGE DIAGNOSES: 1. Clostridium difficile diarrhea. 2. Acute kidney injury due to dehydration and above. 3. Uncontrolled hypertension. SECONDARY DIAGNOSES: 1. History of pancreatitis after ERCP. 2. Choledocholithiasis. 3. Dementia. 4. History of cerebrovascular accident. 5. History of atrial fibrillation. 6. History of congestive heart failure. 7. Chronic kidney disease stage 3. 8. Coronary artery disease. 9. Hypertension. 10. Depression. 11. Diabetes. 12. Chronic obstructive pulmonary disease, not oxygen dependent. MEDICATIONS: At home include: 1. Albuterol inhaler every 4 hours p.r.n. 2. Coreg 12.5 mg b.i.d. 3. Aricept 10 mg daily. 4. Lasix 20 mg Mondays, Tuesdays, Wednesdays, and Fridays as previously taken. 5. Lisinopril 20 mg daily. 6. Imodium 2 mg q.a.m. 7. Potassium chloride p.r.n. 8. Potassium chloride 20 mEq daily. 9. Pravachol 40 mg daily. 10. Zoloft 100 mg daily. 11. Coumadin 2 mg alternating with 4 mg as previously taken. 12. Norvasc 5 mg daily. 13. Glipizide XL 5 mg daily in p.m. and 10 in a.m. 14. Metronidazole 500 mg 3 times a day for a total of 10 days. LABORATORY DATA: At the time of discharge on 09/29/16, sodium was 136, potassium 4.1, chloride 109, carbon dioxide 21, BUN 27, creatinine 1.13. CBC dated on 09/25/16 showed white blood cell count of 5.5, hemoglobin of 13.3, hematocrit of 40, and platelets of 139. Abdominal x-ray obtained at admission, impression: "No free air obstruction is noted." HOSPITALIZATION COURSE: Lupe Agarwal is a 76-year-old female with history of paroxysmal atrial fibrillation, on chronic anticoagulation, who presented to the hospital on 09/24/16 with complaints of diarrhea. Her stool was positive for C. diff. The patient was treated with oral Flagyl with good results. A couple of days prior to her discharge, the patient complained that she felt unsafe at home. She complained that her family, especially her [id number] is not nice to her and her step grandchildren are telling her that the family wishes her to . Due to that, Social Work was seeing the patient in consultation. Apparently, the patient had already contacted Adult Protective Services in the past. Apart from that, there is some animosity between the patient and the patient's daughter-in- law. There was no evidence that the patient ever was in fact threatened or abused. The patient also underwent physical therapy, occupational therapy evaluation and was deemed to be a good candidate to return back home. Please also note that initially the patient also suffered from acute kidney injury due to dehydration and diarrhea. By the time of discharge, the patient still has an occasional episode of bowel incontinence, but her stools are becoming to be formed and up to 3 a day. She is going to be discharged home to follow up with her primary care provider in approximately 4 to 7 days. Please note that the patient's blood pressure had been uncontrolled during the hospital stay and the patient was started on Norvasc to go home with. PHYSICAL EXAMINATION: At the time of discharge, blood pressure of 137/52, heart rate of 66 and regular, respiratory rate 16, oxygen saturation 92% on room air, temperature of 97.3. General: The patient is a very pleasant 76-year- old female, who is not in acute distress. Alert, awake and oriented x3. HEENT : Head is atraumatic and normocephalic. Eyes: Pupils are equal and reactive to light and accommodation. Oropharynx clear. Mucosa moist. Neck: Supple. No JVD. No bruits bilaterally. Cardiovascular: Regular rate and rhythm. No murmur. Respiratory: Clear to auscultation bilaterally. Abdomen: Soft, nontender. Bowel sounds present in all 4 quadrants. Extremities: There is no edema. Pulses +2 bilaterally. No clubbing or cyanosis. Neuro Evaluation: Speech clear. Cranial nerves II through XII grossly intact. Motor strength is 5/5 bilaterally. Please note that this is a short summary of the patient's hospital stay. Please refer to further medical records for details. TIME SPENT: Approximately 40 minutes were spent on the patient's discharge. CC: Josiah Ordoñez NP* [id number]/[id number] #: [id number] [facility]
== END 2016-09-29 14:25 | disposition home or self-care (01) | DRG 372 ==
LOC: ED 11:43 → MED 15:41 → OBSVTOIN 09-25 14:05
PROVIDERS: ADMIT Internal Medicine; ATTEND Internal Medicine
DX: A04.7 Enterocolitis due to Clostridium difficile (principal); N17.9 Acute kidney failure, unspecified; I48.0 Paroxysmal atrial fibrillation; I50.9 Heart failure, unspecified; F01.50 Vascular dementia, unspecified severity, without behavioral disturbance, psychotic disturbance, mood disturbance, and anxiety; I13.0 Hypertensive heart and chronic kidney disease with heart failure and stage 1 through stage 4 chronic kidney disease, or unspecified chronic kidney disease; J44.9 Chronic obstructive pulmonary disease, unspecified; E86.0 Dehydration; M10.9 Gout, unspecified; F32.9 Major depressive disorder, single episode, unspecified; E66.9 Obesity, unspecified; I25.10 Atherosclerotic heart disease of native coronary artery without angina pectoris; E78.00 Pure hypercholesterolemia, unspecified; J42 Unspecified chronic bronchitis; K21.9 Gastro-esophageal reflux disease without esophagitis; M19.042 Primary osteoarthritis, left hand; M19.041 Primary osteoarthritis, right hand; M17.0 Bilateral primary osteoarthritis of knee; H40.9 Unspecified glaucoma; E11.36 Type 2 diabetes mellitus with diabetic cataract; Z86.73 Personal history of transient ischemic attack (TIA), and cerebral infarction without residual deficits; F41.9 Anxiety disorder, unspecified; Z82.49 Family history of ischemic heart disease and other diseases of the circulatory system; Z87.891 Personal history of nicotine dependence; N18.3 Chronic kidney disease, stage 3 (moderate); Z66 Do not resuscitate; Z79.84 Long term (current) use of oral hypoglycemic drugs
CPT/HCPCS: 36415; 74020; 80048; 80053; 82150; 83605; 83630; 83690; 83735; 83880; 84484; 85025; 85610; 86140; 87040; 87045; 87046; 87077; 87493; 87899; 93005; 96374; 99284; A9270-GY; G0378; G8978-GP-CI; G8979-GP-CI; G8980-GP-CI; J0360

== ENCOUNTER 2016-10-01 16:32 | Observation (INO) | payer MEDICARE ==
[2016-10-01] MEDS: NS 0.9% 1000 ML* 3,000 ML IV ONE ×3 (19:51→22:00)
[2016-10-01 19:57] LABS: Hematocrit 44 % (35-47); Hemoglobin 14.8 g/dl (12.0-16.0); Mean Corpuscular HGB Conc 34 g/dl (31-36); Mean Corpuscular Hemoglobin 29 pg (27-31); Mean Corpuscular Volume 87 fL (80-97); Mean Platelet Volume 10 um3 (7.4-10.4); Red Blood Count 5.07 10^6/ul (4.0-5.4); Red Cell Distribution Width 15 % (10.5-15); White Blood Count 9.5 10^3/ul (3.5-10.8)
[2016-10-01 20:02] LABS: Urine Bacteria 3+ (Absent); Urine Bilirubin Negative (Negative); Urine Glucose Negative (Negative); Urine Nitrite Positive (Negative)
[2016-10-01 20:14] LABS: ALT 33 U/L (7-52); Albumin 3.4 g/dL (3.2-5.2); Alkaline Phosphatase 60 U/L (34-104); BUN/Creatinine Ratio 26.9 (8-20); Blood Urea Nitrogen 32 mg/dL (6-24); C Reactive Protein 1.51 mg/L (< 5.00); CO2 Carbon Dioxide 22 mmol/L (22-32); Calcium 8.6 mg/dL (8.6-10.3); Chloride 109 mmol/L (101-111); EGFR African American 56.9 (>60); EGFR Non-African American 44.2 (>60); Globulin 3.6 g/dL (2-4); Glucose 148 mg/dL (70-100); Lipase 85 U/L (11.0-82.0); Sodium 136 mmol/L (133-145)
[2016-10-01] MEDS ORDERED: cefTRIAXone(*) 1 GM in NS 0.9% 50 ML* 50 ML IVPB ONE (20:55)
[2016-10-01] MEDS ORDERED: Albuterol HFA INHALER* 8 gm MDI INH PRN (21:23)
[2016-10-01] MEDS ORDERED: Dextrose 50% Syringe 50 ML* 25 GM/50 ML SYRINGE IV PUSH PRN (21:33)
--- NOTE | 2016-10-01 22:16 | ED ---
Miquel Muñiz Alok, scribed for Maninder Palma MD on 10/01/16 at 1823 . GI/ HPI - HPI Summary HPI Summary: 76 y/o female presents to the ED with c/o diarrhea. Pt was last admitted a few days ago for c.diff and prescribed antibiotics. Since then her diarrhea has not been improving, stating 4 episodes just today. Pt has been feeling weak as well with lowered appetite. Pt denies abd pain, lightheadedness, dizziness, CP, SOB, or N/V. PCP Dr. Rahman who was contacted and recommended visit to ED today. - History of Current Complaint Chief Complaint: EDGeneral Time Seen by Provider: 10/01/16 17:49 Stated Complaint: DX C-DIFF/WORSENING SYMPTOMS Hx Obtained From: Patient Onset/Duration: Started Days Ago, Atraumatic, Still Present Timing: Constant Severity: Moderate Current Severity: Moderate Pain Intensity: 0 Associated Signs and Symptoms: Positive: Weakness, Diarrhea, Change in Appetite. Negative: Dizziness, Nausea, Vomiting, Lightheadedness, Abdominal Pain, Chest Pain Additional Signs & Symptoms: Positive: Recent Antibiotics Aggravating Factor(s): Nothing Alleviating Factor(s): Nothing - Additional Pertinent History Primary Care Physician: [id number] - Allergy/Home Medications Allergies/Adverse Reactions: Allergies Allergy/AdvReac Type Severity Reaction Status Date / Time No Known Allergies Allergy Verified 08/28/15 14:11 PMH/Surg Hx/FS Hx/Imm Hx Endocrine/Hematology History: Reports: Hx Diabetes, Hx Thyroid Disease - "operation" Cardiovascular History: Reports: Hx Cardiomegaly, Hx Congestive Heart Failure, Hx Coronary Artery Disease, Hx Hypercholesterolemia - HLD, Hx Hypertension, Other Cardiovascular Problems/Disorders - A-FIB Denies: Hx Pacemaker/ICD Respiratory History: Reports: Hx Chronic Bronchitis, Hx Chronic Obstructive Pulmonary Disease (COPD), Hx Pneumonia, Other Respiratory Problems/Disorders - PNEUMONIA 07/2013 Denies: Hx Asthma GI History: Reports: Hx Gall Bladder Disease, Hx Gastroesophageal Reflux Disease , Hx Jaundice - RELATED TO GALLSTONES, Other GI Disorders - ERCP 2 weeks ago Denies: Hx Ulcer History: Reports: Other Problems/Disorders - RENAL FAILURE IN 2008- FUNCTION IMPROVED Denies: Hx Renal Disease Musculoskeletal History: Reports: Hx Arthritis - OSTEO- IN HANDS AND KNEES, Hx Gout, Other Musculoskeletal History - LEFT HUMERUS FX [id number] TENDER AT TIMES Denies: Hx Orthopedic Injury - NEW DX LEFT SHOULDER FX 07/03/13, Hx Osteoporosis Sensory History: Reports: Hx Cataracts - MILD, Hx Contacts or Glasses, Hx Glaucoma - SLIGHT-NO TREATMENT FOR Denies: Hx Hearing Aid Opthamlomology History: Reports: Hx Cataracts - MILD, Hx Contacts or Glasses, Hx Glaucoma - SLIGHT-NO TREATMENT FOR Neurological History: Reports: Hx Dementia, Hx Headaches - 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 PARTIAL THYROIDECTOMY. ERCP. choley Hx Anesthesia Reactions: Yes - SLOW TO WAKE UP AFTER ERCP - Immunization History Date of Tetanus Vaccine: PT STATES UNSURE Date of Influenza Vaccine: UTD Infectious Disease History: No Infectious Disease History: Reports: Hx Clostridium Difficile Denies: Hx Hepatitis, Hx Human Immunodeficiency Virus (HIV), History Other Infectious Disease, Traveled Outside the [place] in Last 30 Days - Family History Known Family History: Positive: Cardiac Disease, Hypertension - Social History Occupation: Retired Lives: With Family - Son Alcohol Use: None Substance Use Type: Reports: None Smoking Status (MU): Former Smoker Type: Cigarettes Amount Used/How Often: QUIT 50 YEARS AGO, USED ABOUT 1 YEAR Have You Smoked in the Last Year: No Review of Systems Negative: Fever Negative: Chest Pain Negative: Shortness Of Breath Positive: Diarrhea. Negative: Abdominal Pain, Vomiting, Nausea Neurological: Other - Negative: Dizziness, Lightheadedness Positive: Weakness All Other Systems Reviewed And Are Negative: Yes Physical Exam - Summary Physical Exam Summary: The patient is obese in mild distress and in no acute pain. The skin is warm and dry and skin color reflects adequate perfusion. Decreased turgor. HEENT: The head is normocephalic and atraumatic. The pupils are equal and reactive. The conjunctivae are clear and without drainage. Nares are patent and without drainage. Mouth reveals dry mucous membranes and the throat is without erythema and exudate. The external ears are intact. The ear canals are patent and without drainage. The tympanic membranes are intact. Neck is supple with full range of motion and non-tender. There are no carotid bruits. There is no neck vein distension. Respiratory: Chest is non-tender. Lungs are clear to auscultation and breath sounds are symmetrical and equal. Cardiovascular: Hear is regular rate and rhythm. There is no murmur or rub auscultated. There is no peripheral edema and pulses are symmetrical and equal. Abdomen: The abdomen is soft with no reproducible pain. There are normal bowel sounds heard in all four quadrants and there is no organomegaly palpated. Musculoskeletal: There is no back pain noted. Extremities are non-tender with full range of motion. 3 second capillary refill. No pitting edema lower extremities. There is no peripheral edema or calf tenderness elicited. Neurological: Patient is alert and oriented to person, place and time. The patient has symmetrical motor strength in all four extremities. Cranial nerves are grossly intact. Deep tendon reflexes are symmetrical and equal in all four extremities. Psychiatric: The patient has an appropriate affect and does not exhibit any anxiety or depression. Pt is able to sit up and follow commands. Triage Information Reviewed: Yes Vital Signs On Initial Exam: Initial Vitals Temp Pulse Resp Pulse Ox 96.2 F 63 16 100 10/01/16 16:34 10/01/16 16:34 10/01/16 16:34 10/01/16 16:34 Vital Signs Reviewed: Yes - Meg Coma Scale Coma Scale Total: 15 Diagnostics - Vital Signs Vital Signs Temp Pulse Resp BP Pulse Ox 10/01/16 17:44 97.6 F 75 20 154/74 96 10/01/16 16:34 96.2 F 63 16 100 - Laboratory Lab Results: Lab Results 10/01/16 10/01/16 10/01/16 Range/Units 19:42 19:42 19:42 WBC 9.5 (3.5-10.8) 10^3/ul RBC 5.07 (4.0-5.4) 10^6/ul Hgb 14.8 (12.0-16.0) g/dl Hct 44 (35-47) % MCV 87 (80-97) fL MCH 29 (27-31) pg MCHC 34 (31-36) g/dl RDW 15 (10.5-15) % Plt Count 251 (150-450) 10^3/ul MPV 10 (7.4-10.4) um3 Neut % (Auto) 66.1 (38-83) % Lymph % (Auto) 23.7 L (25-47) % [place] % (Auto) 8.1 (1-9) % Eos % (Auto) 1.5 (0-6) % Baso % (Auto) 0.6 (0-2) % Absolute Neuts (auto) 6.3 (1.5-7.7) 10^3/ul Absolute Lymphs (auto) 2.3 (1.0-4.8) 10^3/ul Absolute Monos (auto) 0.8 (0-0.8) 10^3/ul Absolute Eos (auto) 0.1 (0-0.6) 10^3/ul Absolute Basos (auto) 0.1 (0-0.2) 10^3/ul Absolute Nucleated RBC 0 10^3/ul Nucleated RBC % 0 INR (Anticoag Therapy) (0.89-1.11) Sodium 136 (133-145) mmol/L Potassium TNP Chloride 109 (101-111) mmol/L Carbon Dioxide 22 (22-32) mmol/L Anion Gap TNP BUN 32 H (6-24) mg/dL Creatinine 1.19 H (0.51-0.95) mg/dL Est GFR ( Amer) 56.9 (>60) Est GFR (Non-Af Amer) 44.2 (>60) BUN/Creatinine Ratio 26.9 H (8-20) Glucose 148 H (70-100) mg/dL Lactic Acid (0.5-2.0) mmol/L Calcium 8.6 (8.6-10.3) mg/dL Magnesium 2.0 (1.9-2.7) mg/dL Total Bilirubin 0.40 (0.2-1.0) mg/dL AST TNP ALT 33 (7-52) U/L Alkaline Phosphatase 60 (34-104) U/L C-Reactive Protein 1.51 (< 5.00) mg/L Total Protein 7.0 (6.4-8.9) g/dL Albumin 3.4 (3.2-5.2) g/dL Globulin 3.6 (2-4) g/dL Albumin/Globulin Ratio 0.9 L (1-3) Lipase 85 H (11.0-82.0) U/L Urine Color Yellow Urine Appearance Cloudy Urine pH 5.0 (5-9) Ur Specific [place] 1.021 (1.010-1.030) Urine Protein Negative (Negative) Urine Ketones Negative (Negative) Urine Blood Negative (Negative) Urine Nitrate Positive H (Negative) Urine Bilirubin Negative (Negative) Urine Urobilinogen Negative (Negative) Ur Leukocyte Esterase 3+ H (Negative) Urine WBC (Auto) 3+(>20/hpf) H (Absent) Urine RBC (Auto) 1+(3-5/hpf) H (Absent) Ur Squamous Epith Cells Present H (Absent) Urine Bacteria 3+ H (Absent) Urine Glucose Negative (Negative) 10/01/16 10/01/16 10/01/16 Range/Units 19:42 20:20 20:20 WBC (3.5-10.8) 10^3/ul RBC (4.0-5.4) 10^6/ul Hgb (12.0-16.0) g/dl Hct (35-47) % MCV (80-97) fL MCH (27-31) pg MCHC (31-36) g/dl RDW (10.5-15) % Plt Count (150-450) 10^3/ul MPV (7.4-10.4) um3 Neut % (Auto) (38-83) % Lymph % (Auto) (25-47) % [place] % (Auto) (1-9) % Eos % (Auto) (0-6) % Baso % (Auto) (0-2) % Absolute Neuts (auto) (1.5-7.7) 10^3/ul Absolute Lymphs (auto) (1.0-4.8) 10^3/ul Absolute Monos (auto) (0-0.8) 10^3/ul Absolute Eos (auto) (0-0.6) 10^3/ul Absolute Basos (auto) (0-0.2) 10^3/ul Absolute Nucleated RBC 10^3/ul Nucleated RBC % INR (Anticoag Therapy) 1.80 H (0.89-1.11) Sodium (133-145) mmol/L Potassium 4.2 Chloride (101-111) mmol/L Carbon Dioxide (22-32) mmol/L Anion Gap BUN (6-24) mg/dL Creatinine (0.51-0.95) mg/dL Est GFR ( Amer) (>60) Est GFR (Non-Af Amer) (>60) BUN/Creatinine Ratio (8-20) Glucose (70-100) mg/dL Lactic Acid 1.0 (0.5-2.0) mmol/L Calcium (8.6-10.3) mg/dL Magnesium (1.9-2.7) mg/dL Total Bilirubin (0.2-1.0) mg/dL AST 27 ALT (7-52) U/L Alkaline Phosphatase (34-104) U/L C-Reactive Protein (< 5.00) mg/L Total Protein (6.4-8.9) g/dL Albumin (3.2-5.2) g/dL Globulin (2-4) g/dL Albumin/Globulin Ratio (1-3) Lipase (11.0-82.0) U/L Urine Color Urine Appearance Urine pH (5-9) Ur Specific [place] (1.010-1.030) Urine Protein (Negative) Urine Ketones (Negative) Urine Blood (Negative) Urine Nitrate (Negative) Urine Bilirubin (Negative) Urine Urobilinogen (Negative) Ur Leukocyte Esterase (Negative) Urine WBC (Auto) (Absent) Urine RBC (Auto) (Absent) Ur Squamous Epith Cells (Absent) Urine Bacteria (Absent) Urine Glucose (Negative) Result Diagrams: 10/01/16 19:42 10/01/16 20:20 Lab Statement: Any lab studies that have been ordered have been reviewed, and results considered in the medical decision making process. Re-Evaluation - Re-Evaluation First Eval Re-Evaluation Time: 20:58 GIGU Course/Dx - Diagnoses Differential Diagnoses - Female: Colitis, Cystitis, Dehydration, Other - c.diff colitis Provider Diagnoses: UTI (urinary tract infection), Dehydration - Physician Notifications Discussed Care Of Patient With: Carmelina Jessica (Nurse Practitioner) @ 2057 - Will admit pt to Dr. Boogie (Hospitalist) Discharge - Discharge Plan Condition: Stable Disposition: ADMITTED TO [facility] documentation as recorded by the Miquel faulkner Alok accurately reflects the service I personally performed and the decisions made by me, Maninder Palma MD.
[2016-10-02] MEDS: Carvedilol TAB* 6.25 MG PO SCH ×2 (00:06→08:45)
[2016-10-02] MEDS: Heparin VIAL(*) 5000 UNITS/ML VIAL (FIVE THOUSAND) SUBCUT SCH ×3 (00:06→12:57)
--- NOTE | 2016-10-02 04:08 | HP ---
HOSPITAL MEDICINE HISTORY AND PHYSICAL: DATE OF ADMISSION: 10/01/16 ATTENDING PHYSICIAN: Eduardo Boogie MD *(dictation provided by Carmelina Jessica NP) PRIMARY CARE PROVIDER: Josiah Ordoñez NP CHIEF COMPLAINT: Weakness and diarrhea. HISTORY OF PRESENT ILLNESS: Ms. Agarwal is a 76-year-old female with a past medical history of dementia; CVA; AFib; diastolic CHF; CKD stage 3; hypertension ; diabetes; and COPD, who was just discharged from our hospital on 09/29/16 after being treated for C. difficile colitis. Please see the H and P and discharge summary from that admission for complete details. In brief, the patient had significant diarrhea and had been found to be positive for C. diff. She was treated with Flagyl with good improvement of her symptoms. The patient states that initially on going home, she was doing okay, but then today she had 4 large loose bowel movements and felt weak, and therefore came back to the emergency room. She has no report of fevers, chills, cough, or chest pain. She does have ongoing issues with shortness of breath, but this is related to her COPD and is unchanged from baseline. In the emergency room, Ms. Agarwal felt on several occasions like she would have diarrhea, but she has not had passed any stools since being here and she has been here about 5 hours. Laboratory current workup revealed that she has a urinary tract infection with 3+ leuk esterase and positive nitrites. The patient does not have any clear dysuria or frequency, although often these symptoms are masked in the elderly. PAST MEDICAL HISTORY: 1. COPD. 2. Diastolic congestive heart failure. 3. History of pancreatitis. 4. ERCP. 5. History of choledocholithiasis. 6. Dementia. 7. History of CVA. 8. CKD stage 3. 9. Coronary artery disease. 10. Hypertension. 11. Depression. 12. Type 2 diabetes, noninsulin dependent. 13. History of cholecystectomy. 14. Atrial fibrillation. OUTPATIENT MEDICATIONS: 1. Furosemide 20 mg p.o. Wednesday, Wednesday, Wednesday, , and Wednesday. 2. Lisinopril 20 mg p.o. daily. 3. Pravastatin 40 mg p.o. daily. 4. Glipizide 10 mg in the a.m. and 5 mg in the p.m. 5. Albuterol inhaler p.r.n. 6. Carvedilol 12.5 mg p.o. b.i.d. 7. Donepezil 10 mg p.o. q.a.m. 8. Loperamide 2 mg p.o. q.a.m. 9. Potassium chloride 20 mEq p.o. daily. 10. Sertraline 100 mg p.o. daily. 11. Warfarin 2 mg p.o. Wednesday and Wednesday and 4 mg p.o. Wednesday, Wednesday, , Wednesday, and Wednesday. 12. Amlodipine 5 mg p.o. daily. 13. Metronidazole 500 mg p.o. t.i.d. ALLERGIES: No known drug allergies. FAMILY HISTORY: The patient's mother has severe heart disease. Father of old age. SOCIAL HISTORY: The patient is a former smoker, but quit when she was a teenager. There is no reported alcohol or drug use. She lives with her son who is her healthcare proxy. REVIEW OF SYSTEMS: A 14-point review of systems was completed with Ms. Agarwal and all those not mentioned above were negative. PHYSICAL EXAMINATION GENERAL: Ms. Agarwal is lying in the bed. She is in no acute distress. VITAL SIGNS: Temperature 97.6, pulse rate 75, respiratory rate 20, O2 saturation 96% on room air, and blood pressure 154/74. LUNGS: Clear to auscultation bilaterally with no accessory muscle use and good aeration. HEART: S1, S2. No murmur, rub, or gallop. Regular. ABDOMEN: Soft, nontender with bowel sounds positive x4. EXTREMITIES: No cyanosis or edema. NEUROLOGIC: She is alert. She is oriented x3. She moves all extremities equally. There is no facial asymmetry or focal weakness. Extraocular movements are intact. SKIN: Intact. DIAGNOSTIC STUDIES/LAB DATA: WBC 9.5, hemoglobin 14.8, hematocrit 44, and platelet count 251. INR 1.80. Sodium 136, potassium 4.2, chloride 109, serum bicarbonate 22, BUN 32, creatinine 1.19, and glucose 148. Urine shows positive nitrites and 3+ leuk esterase. ASSESSMENT: Ms. Agarwal is a 76-year-old female with past medical history of chronic obstructive pulmonary disease, coronary artery disease, diastolic congestive heart failure, [id number] diabetes, as well as discharged from the hospital 2 days ago after being treated for C. difficile colitis. She presents today to the emergency room with concern for worsening diarrhea, although she has not had any episodes of diarrhea since being here in the emergency room over the past 5 hours; however, she has been noted to have a urinary tract infection. Plans are for observation in the hospital for the followin. Urinary tract infection: Plan is to treat with ceftriaxone as I believe this is less likely to worsen her C. difficile. Plan to await urinary cultures and adjust antibiotics as indicated. She has no leukocytosis, no fever, and no pain in the flank area or otherwise. 2. Diarrhea: There is concern the patient had 4 to 5 stools today. The fact that she has not had any stools over the past several hours lessened my suspicion that there is treatment failure with the Flagyl. I think the best course of action would be to continue Flagyl and to monitor her diarrhea closely and to adjust medications as needed based on the clinical course. 3. Type 2 diabetes: The patient will have blood sugars q.a.c. with a lispro sliding scale. 4. History of a cerebrovascular accident: Continue warfarin. 5. Chronic kidney disease stage 3: Creatinine is at baseline. 6. History of diastolic congestive heart failure: The patient does not have any evidence of acute failure. We will plan to hold her Lasix due to her acute diarrhea, but we will restart that tomorrow if she is stable. 7. Coronary artery disease: Continue beta-jay and statin. 8. DVT prophylaxis: With warfarin. Add heparin subcu while INR is subtherapeutic. 9. Disposition: To medical floor. 10. Atrial fibrillation: Continue warfarin. INR is subtherapeutic. Recheck in a.m. 11. Code status: DNR. The MOLST form will be completed. TIME SPENT: Approximately 60 minutes was spent in the admission of this patient , more than half the time was spent with the patient at the bedside reviewing the events leading up to this hospitalization, performing the physical examination, and reviewing the plan of care. CARMELINA JESSICA NP CC: Josiah Ordoñez NP* [id number]/[facility] #: [id number] MTDNely
[2016-10-02 06:30] LABS: Hematocrit 38 % (35-47); Hemoglobin 12.8 g/dl (12.0-16.0); Mean Corpuscular HGB Conc 33 g/dl (31-36); Mean Corpuscular Hemoglobin 29 pg (27-31); Mean Corpuscular Volume 87 fL (80-97); Mean Platelet Volume 10 um3 (7.4-10.4); Red Blood Count 4.39 10^6/ul (4.0-5.4); Red Cell Distribution Width 15 % (10.5-15); White Blood Count 7.7 10^3/ul (3.5-10.8)
[2016-10-02 06:47] LABS: BUN/Creatinine Ratio 23.9 (8-20); Calcium 7.5 mg/dL (8.6-10.3); EGFR African American 60.4 (>60); EGFR Non-African American 46.9 (>60)
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
[2016-10-02 08:44] VITALS: BP 198/82
[2016-10-02] MEDS: Insulin LISPRO* 1 UNITS UNIT SUBCUT SCH ×2 (08:45→12:57)
[2016-10-02] MEDS: metroNIDAZOLE TAB* 250 MG PO SCH ×2 (08:45→12:57)
[2016-10-02] MEDS ORDERED: Potassium Chlor TAB* 20 MEQ TAB.ER PO SCH (09:00)
[2016-10-02] MEDS ORDERED: glipiZIDE TAB.XL* 5 MG PO SCH ×2 (09:00→18:00)
[2016-10-02] MEDS ORDERED: Loperamide CAP* 2 MG PO SCH (09:00)
[2016-10-02] MEDS ORDERED: amLODIPine TAB* 5 MG PO SCH (09:00)
[2016-10-02] MEDS ORDERED: Sertraline* 100 MG TAB PO SCH (09:00)
[2016-10-02] MEDS ORDERED: Donepezil TAB* 5 MG PO SCH (09:00)
--- NOTE | 2016-10-02 09:52 | PN ---
Progress Note - Progress Note Note: I spoke with the SW. VNS will be arranged. No evidence or report of physical harm. Pt agreeable to go home. Fup ROQUE Ordoñez.
[2016-10-02] MEDS ORDERED: Warfarin TAB(*) 4 MG PO SCH (17:00)
[2016-10-02] MEDS ORDERED: cefTRIAXone VIAL(*) 1,000 MG in NS 0.9% 50 ML* 50 ML IVPB SCH (21:00)
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
[2016-10-05] MEDS ORDERED: Warfarin TAB(*) 2 MG PO SCH (17:00)
== END 2016-10-02 14:15 | disposition home or self-care (01) ==
LOC: ED 16:32 → MED 21:22
PROVIDERS: ADMIT Hospitalist; ATTEND Internal Medicine
DX: K52.9 Noninfective gastroenteritis and colitis, unspecified (principal); I13.0 Hypertensive heart and chronic kidney disease with heart failure and stage 1 through stage 4 chronic kidney disease, or unspecified chronic kidney disease; I50.32 Chronic diastolic (congestive) heart failure; N18.3 Chronic kidney disease, stage 3 (moderate); E11.22 Type 2 diabetes mellitus with diabetic chronic kidney disease; N39.0 Urinary tract infection, site not specified; I48.91 Unspecified atrial fibrillation; Z79.01 Long term (current) use of anticoagulants; I25.10 Atherosclerotic heart disease of native coronary artery without angina pectoris; Z79.84 Long term (current) use of oral hypoglycemic drugs; J44.9 Chronic obstructive pulmonary disease, unspecified; F03.90 Unspecified dementia, unspecified severity, without behavioral disturbance, psychotic disturbance, mood disturbance, and anxiety; Z79.899 Other long term (current) drug therapy
CPT/HCPCS: 36415; 80048; 80053; 81003; 81015; 83605; 83690; 83735; 85025; 85610; 86140; 87077; 87086; 87186; 87493; 96361; 96365; 96372; 99283; A9270-GY; G0378; J0696; J1644

== ENCOUNTER 2017-03-12 14:43 | Inpatient (IN) | payer MEDICARE ==
[2017-03-12] MEDS ORDERED: methylPREDNISolone 125 MG* 2 ML VIAL IV ONE (15:08)
[2017-03-12] MEDS: Albuterol/Ipratropium NEB.SOL* Albuterol 2.5 MG/Ipratropium 0.5 MG 3 ML INH SCH (15:23)
--- NOTE | 2017-03-12 15:44 | RAD ---
Indication: Weakness, history of stroke. CT of the brain was performed without IV contrast. Comparison is made with previous exam dated December 27, 2014. Ventricular structures are midline. No midline shift is noted. Central and cortical atrophy is noted. Evidence of old right occipital lobe infarct is noted. Periventricular lucency consistent with chronic ischemic White matter change is noted. Facet no intracranial mass or hemorrhage is noted. Mastoid air cells and paranasal sinuses are otherwise unremarkable. 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 Chronic ischemic White matter change. No intracranial mass or hemorrhage is noted.
[2017-03-12 15:52] LABS: FIO2 2
[2017-03-12 15:55] LABS: PCO2 Arterial 49 mmHg (35-45)
--- NOTE | 2017-03-12 15:55 | RAD ---
HISTORY: Shortness of breath COMPARISONS: August 28, 2015 VIEWS: 2: Frontal and lateral views of the chest. FINDINGS: CARDIOMEDIASTINAL SILHOUETTE: The cardiac silhouette is mildly enlarged. The cardiomediastinal silhouette is otherwise normal. PAULO: The paulo are normal. PLEURA: The costophrenic angles are sharp. No pleural abnormalities are noted. LUNG PARENCHYMA: The lung volumes are low. Lungs are clear.. ABDOMEN: The upper abdomen is clear. There is no subphrenic gas. BONES AND SOFT TISSUES: No bone or soft tissue abnormalities are noted. OTHER: None. IMPRESSION: CARDIOMEGALY. NO ACTIVE CARDIOPULMONARY DISEASE..
[2017-03-12 16:11] LABS: Hematocrit 40 % (35-47); Hemoglobin 13.4 g/dl (12.0-16.0); Mean Corpuscular HGB Conc 34 g/dl (31-36); Mean Corpuscular Hemoglobin 30 pg (27-31); Mean Corpuscular Volume 90 fL (80-97); Mean Platelet Volume 9 um3 (7.4-10.4); Red Blood Count 4.42 10^6/ul (4.0-5.4); Red Cell Distribution Width 15 % (10.5-15); White Blood Count 8.9 10^3/ul (3.5-10.8)
[2017-03-12 16:29] LABS: Troponin I 0.02 ng/mL (<0.04)
[2017-03-12 16:30] LABS: Albumin 3.2 g/dL (3.2-5.2); C Reactive Protein 20.13 mg/L (< 5.00); Calcium 8.7 mg/dL (8.6-10.3); EGFR African American 55.3 (>60); Globulin 3.9 g/dL (2-4); Potassium 4.3 mmol/L (3.5-5.0); Total Bilirubin 0.4 mg/dL (0.2-1.0); Total Protein 7.1 g/dL (6.4-8.9)
[2017-03-12] MEDS ORDERED: Albuterol HFA INHALER* 8 gm MDI INH PRN (17:59)
[2017-03-12] MEDS ORDERED: Ipratropium 0.5MG/2.5ML NEB* 0.5 MG/2.5 ML NEB.SOLN INH PRN (17:59)
--- NOTE | 2017-03-12 18:54 | ED ---
Jose Miguel Muñiz Angela, scribed for Juwan Garcia MD on 03/12/17 at 1509 . Respiratory - HPI Summary HPI Summary: This pt is a 76 y/o female BIBA [facility] c/o difficulty breathing. Per EMS, for the last several months the pt has had increased respiratory distress as well as increased weakness. For the last 2 days pt has not been able to get up with assistance. Pt has had increased confusion for the last week. Daughter has noticed the pt having left leg deficits while bathing her 2 days ago. PMHx includes DM, COPD, CHF, asthma. Pt had a stroke and CO (8 years ago), sustaining left arm weakness and left visual deficits as a result. - History of Current Complaint Chief Complaint: EDWeakness Stated Complaint: SOB,AMS Time Seen by Provider: 03/12/17 15:00 Hx Obtained From: Patient Onset/Duration: Lasting Weeks Pain Intensity: 0 Associated Signs and Symptoms: SOB - Allergy/Home Medications Allergies/Adverse Reactions: Allergies Allergy/AdvReac Type Severity Reaction Status Date / Time No Known Allergies Allergy Verified 08/28/15 14:11 Home Medications: Home Medications Dabigatran CAP(NF) [Pradaxa CAP(NF)] 150 mg PO BID 03/12/17 [History Confirmed 03/12/17] Furosemide TAB* [Lasix TAB*] 20 mg PO DAILY 03/12/17 [History Confirmed 03/12/17 ] Ipratropium 0.5MG/2.5ML NEB* [Atrovent 0.5 MG NEB.SAIMA*] 0.5 mg INH Q6H PRN 03/12 [History Confirmed 03/12/17] Loperamide CAP* [Imodium CAP*] 2 mg PO Q4H PRN 03/12/17 [History Confirmed 03/12] risperiDONE TAB* [Risperdal*] 1 mg PO BEDTIME 03/12/17 [History Confirmed ] PMH/Surg Hx/FS Hx/Imm Hx Endocrine/Hematology History: Reports: Hx Diabetes, Hx Thyroid Disease - "operation" Cardiovascular History: Reports: Hx Cardiomegaly, Hx Congestive Heart Failure, Hx Coronary Artery Disease, Hx Hypercholesterolemia - HLD, Hx Hypertension, Other Cardiovascular Problems/Disorders - A-FIB Denies: Hx Pacemaker/ICD Respiratory History: Reports: Hx Chronic Bronchitis, Hx Chronic Obstructive Pulmonary Disease (COPD), Hx Pneumonia, Other Respiratory Problems/Disorders - PNEUMONIA 07/2013 Denies: Hx Asthma GI History: Reports: Hx Gall Bladder Disease, Hx Gastroesophageal Reflux Disease , Hx Jaundice - RELATED TO GALLSTONES, Other GI Disorders - ERCP 2 weeks ago Denies: Hx Ulcer History: Reports: Other Problems/Disorders - RENAL FAILURE IN 2008- FUNCTION IMPROVED Denies: Hx Renal Disease Musculoskeletal History: Reports: Hx Arthritis - OSTEO- IN HANDS AND KNEES, Hx Gout, Other Musculoskeletal History - LEFT HUMERUS FX [id number] TENDER AT TIMES Denies: Hx Orthopedic Injury - NEW DX LEFT SHOULDER FX 07/03/13, Hx Osteoporosis Sensory History: Reports: Hx Cataracts - MILD, Hx Contacts or Glasses, Hx Glaucoma - SLIGHT-NO TREATMENT FOR Denies: Hx Hearing Aid Opthamlomology History: Reports: Hx Cataracts - MILD, Hx Contacts or Glasses, Hx Glaucoma - SLIGHT-NO TREATMENT FOR Neurological History: Reports: Hx Dementia, Hx Headaches - 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 PARTIAL THYROIDECTOMY. ERCP. choley Hx Anesthesia Reactions: Yes - SLOW TO WAKE UP AFTER ERCP - Immunization History Date of Tetanus Vaccine: PT STATES UNSURE Date of Influenza Vaccine: UTD Infectious Disease History: Yes Infectious Disease History: Reports: Hx Clostridium Difficile Denies: Hx Hepatitis, Hx Human Immunodeficiency Virus (HIV), History Other Infectious Disease, Traveled Outside the [place] in Last 30 Days - Family History Known Family History: Positive: Cardiac Disease, Hypertension - Social History Alcohol Use: None Substance Use Type: Reports: None Smoking Status (MU): Former Smoker Type: Cigarettes Amount Used/How Often: QUIT 50 YEARS AGO, USED ABOUT 1 YEAR Have You Smoked in the Last Year: No Review of Systems Negative: Fever, Chills Negative: Photophobia, Blurred Vision ENT: Negative Positive: Shortness Of Breath Negative: Abdominal Pain, Vomiting Genitourinary: Negative Neurological: Other - confusion Positive: Weakness - generalized All Other Systems Reviewed And Are Negative: Yes Physical Exam - Summary Physical Exam Summary: VITAL SIGNS: Reviewed. GENERAL: Patient is a well-developed and obese female with some shortness of breath and is able to speak full sentences. Patient is not in any acute respiratory distress. HEAD AND FACE: No signs of trauma. No ecchymosis, hematomas or skull depressions. No sinus tenderness. EYES: PERRLA, EOMI x 2, No injected conjunctiva, no nystagmus. EARS: Hearing grossly intact. Ear canals and tympanic membranes are within normal limits. MOUTH: Oropharynx within normal limits. NECK: Supple, trachea is midline, no adenopathy, no JVD, no carotid bruit, no c- spine tenderness, neck with full ROM. CHEST: Symmetric, no tenderness at palpation LUNGS: Lungs with bilateral wheezing and crackles in the bases of the lung. CVS: Regular rate and rhythm, S1 and S2 present, no murmurs or gallops appreciated. ABDOMEN: Soft, non-tender. No signs of distention. No rebound no guarding, and no masses palpated. Bowel sounds are normal. EXTREMITIES: FROM in all major joints, no cyanosis or clubbing. There is 2+ edema in the lower extremities. NEURO: Alert and oriented x 3. No acute neurological deficits. Speech is normal and follows commands. SKIN: Dry and warm Triage Information Reviewed: Yes Vital Signs On Initial Exam: Initial Vitals Temp Pulse Resp BP Pulse Ox 98.1 F 97 19 179/89 97 03/12/17 14:50 03/12/17 14:50 03/12/17 14:50 03/12/17 14:50 03/12/17 14:50 Vital Signs Reviewed: Yes Diagnostics - Vital Signs Vital Signs Temp Pulse Resp BP Pulse Ox 03/12/17 14:50 98.1 F 97 19 179/89 97 - Laboratory Lab Results: Lab Results 03/12/17 03/12/17 03/12/17 Range/Units 15:45 16:00 16:00 WBC (3.5-10.8) 10^3/ul RBC (4.0-5.4) 10^6/ul Hgb (12.0-16.0) g/dl Hct (35-47) % MCV (80-97) fL MCH (27-31) pg MCHC (31-36) g/dl RDW (10.5-15) % Plt Count (150-450) 10^3/ul MPV (7.4-10.4) um3 Neut % (Auto) (38-83) % Lymph % (Auto) (25-47) % [place] % (Auto) (1-9) % Eos % (Auto) (0-6) % Baso % (Auto) (0-2) % Absolute Neuts (auto) (1.5-7.7) 10^3/ul Absolute Lymphs (auto) (1.0-4.8) 10^3/ul Absolute Monos (auto) (0-0.8) 10^3/ul Absolute Eos (auto) (0-0.6) 10^3/ul Absolute Basos (auto) (0-0.2) 10^3/ul Absolute Nucleated RBC 10^3/ul Nucleated RBC % Patient Temperature Not Reportable ABG pH 7.37 (7.35-7.45) ABG pH (Temp Correct) Not Reportable ABG pCO2 49 H (35-45) mmHg ABG pCO2 (Temp Corrct Not Reportable ABG pO2 153 H (80-100) mmHg ABG pO2 (Temp Correct Not Reportable ABG HCO3 26.5 (19-31) mmol/L ABG O2 Saturation 99.6 H (95-98) % ABG Base Excess 2.1 H (-2.0-2.0) Respiration Rate Not Reportable O2 Delivery Device n/c Ventilator Type Not Reportable Vent Mode Not Reportable FiO2 2 Inspiratory Time Not Reportable PEEP Not Reportable Pressure Support Not Reportable Pressure Control Not Reportable EPAP Not Reportable IPAP Not Reportable BiPAP Not Reportable Sodium 137 (133-145) mmol/L Potassium 4.3 (3.5-5.0) mmol/L Chloride 103 (101-111) mmol/L Carbon Dioxide 29 (22-32) mmol/L Anion Gap 5 (2-11) mmol/L BUN 28 H (6-24) mg/dL Creatinine 1.22 H (0.51-0.95) mg/dL Est GFR ( Amer) 55.3 (>60) Est GFR (Non-Af Amer) 43.0 (>60) BUN/Creatinine Ratio 23.0 H (8-20) Glucose 201 H (70-100) mg/dL Lactic Acid (0.5-2.0) mmol/L Calcium 8.7 (8.6-10.3) mg/dL Total Bilirubin 0.40 (0.2-1.0) mg/dL AST 16 (13-39) U/L ALT 14 (7-52) U/L Alkaline Phosphatase 69 (34-104) U/L Total Creatine Kinase 70 (10-223) U/L CK-MB (CK-2) 1.5 (0.6-6.3) ng/mL Troponin I 0.02 (<0.04) ng/mL C-Reactive Protein 20.13 H (< 5.00) mg/L B-Natriuretic Peptide 292 H ( - 100) pg/mL Total Protein 7.1 (6.4-8.9) g/dL Albumin 3.2 (3.2-5.2) g/dL Globulin 3.9 (2-4) g/dL Albumin/Globulin Ratio 0.8 L (1-3) 03/12/17 03/12/17 Range/Units 16:00 16:00 WBC 8.9 (3.5-10.8) 10^3/ul RBC 4.42 (4.0-5.4) 10^6/ul Hgb 13.4 (12.0-16.0) g/dl Hct 40 (35-47) % MCV 90 (80-97) fL MCH 30 (27-31) pg MCHC 34 (31-36) g/dl RDW 15 (10.5-15) % Plt Count 192 (150-450) 10^3/ul MPV 9 (7.4-10.4) um3 Neut % (Auto) 80.0 (38-83) % Lymph % (Auto) 10.4 L (25-47) % [place] % (Auto) 7.9 (1-9) % Eos % (Auto) 1.3 (0-6) % Baso % (Auto) 0.4 (0-2) % Absolute Neuts (auto) 7.1 (1.5-7.7) 10^3/ul Absolute Lymphs (auto) 0.9 L (1.0-4.8) 10^3/ul Absolute Monos (auto) 0.7 (0-0.8) 10^3/ul Absolute Eos (auto) 0.1 (0-0.6) 10^3/ul Absolute Basos (auto) 0 (0-0.2) 10^3/ul Absolute Nucleated RBC 0 10^3/ul Nucleated RBC % 0 Patient Temperature ABG pH (7.35-7.45) ABG pH (Temp Correct) ABG pCO2 (35-45) mmHg ABG pCO2 (Temp Corrct ABG pO2 (80-100) mmHg ABG pO2 (Temp Correct ABG HCO3 (19-31) mmol/L ABG O2 Saturation (95-98) % ABG Base Excess (-2.0-2.0) Respiration Rate O2 Delivery Device Ventilator Type Vent Mode FiO2 Inspiratory Time PEEP Pressure Support Pressure Control EPAP IPAP BiPAP Sodium (133-145) mmol/L Potassium (3.5-5.0) mmol/L Chloride (101-111) mmol/L Carbon Dioxide (22-32) mmol/L Anion Gap (2-11) mmol/L BUN (6-24) mg/dL Creatinine (0.51-0.95) mg/dL Est GFR ( Amer) (>60) Est GFR (Non-Af Amer) (>60) BUN/Creatinine Ratio (8-20) Glucose (70-100) mg/dL Lactic Acid 1.6 (0.5-2.0) mmol/L Calcium (8.6-10.3) mg/dL Total Bilirubin (0.2-1.0) mg/dL AST (13-39) U/L ALT (7-52) U/L Alkaline Phosphatase (34-104) U/L Total Creatine Kinase (10-223) U/L CK-MB (CK-2) (0.6-6.3) ng/mL Troponin I (<0.04) ng/mL C-Reactive Protein (< 5.00) mg/L B-Natriuretic Peptide ( - 100) pg/mL Total Protein (6.4-8.9) g/dL Albumin (3.2-5.2) g/dL Globulin (2-4) g/dL Albumin/Globulin Ratio (1-3) Result Diagrams: 03/12/17 16:00 03/12/17 16:00 Lab Statement: Any lab studies that have been ordered have been reviewed, and results considered in the medical decision making process. - Radiology Chest XR Xray Interpretation: Positive (See Comments) - IMPRESSION: Cardiomegaly. No active cardiopulmonary disease. ED physician has reviewed this radiology report and agrees. 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 Chronic ischemic white matter change. No intracranial mass or hemorrhage is noted. ED physician has reviewed this radiology report and agrees. CT Interpretation Completed By: Radiologist - EKG 1731 Cardiac Rate: NL - 62 bpm EKG Rhythm: Sinus Rhythm EKG Interpretation: Left bundle branch block Disposition - Course Assessment/Plan: This pt is a 76 y/o female BIBA presenting to [facility] c/o difficulty breathing. Per EMS, for the last several months the pt has had increased respiratory distress as well as increased weakness. For the last 2 days pt has not been able to get up with assistance. Pt has had increased confusion for the last week. Daughter has noticed the pt having left leg deficits while bathing her 2 days ago. PMHx includes DM, COPD, CHF, asthma. Pt had a stroke and CO (8 years ago), sustaining left arm weakness and left visual deficits as a result. Test results are without any significant abnormalities except for increased BUN/Creatinine possibly secondary to dehydration, glucose of 201, CRP of 20, BNP of 292. Pt has diffuse wheezing and decreased breath sounds significant for COPD exacerbation. The pt was given and solu-medrol and she improved, however, the pt is still wheezing. ABG was done, and is only abnormal for CO2 increase of 49. Since the family has reported increased weakness and confusion, I ordered a head CT. Head CT shows no acute pathology. Chest XR is negative for pneumonia. However, she is weak and unable to ambulate. I discussed the case with Dr. Rojas who accepts the pt for admission. - Differential Dx - Cardiopulmonary Differential Diagnoses - Cardiopulmonary: Bronchitis, CHF, Chest Wall Pain, Exacerbation Of COPD, Sinusitis - Diagnoses Provider Diagnoses: COPD exacerbation, Generalized weakness, Dehydration, Renal insufficiency - Physician Notifications Discussed Care Of Patient With: Lopez Rojas Instructed by Provider To: Other - I discussed the pt's case with Dr. Rojas. He has agreed to admit the pt. Discharge - Discharge Plan Condition: Stable Disposition: ADMITTED TO [facility] The documentation as recorded by the Jose Miguel faulkner Angela accurately reflects the service I personally performed and the decisions made by me, Juwan Garcia MD.
[2017-03-12] MEDS: Albuterol/Ipratropium NEB.SOL* Albuterol 2.5 MG/Ipratropium 0.5 MG 3 ML INH PRN (19:31)
[2017-03-12] MEDS: CMCS:Dabigatran CAP(NF) 150 MG CAP PO SCH (21:59)
[2017-03-12] MEDS: Carvedilol TAB* 6.25 MG PO SCH (21:59)
[2017-03-12] MEDS ORDERED: Heparin VIAL(*) 5000 UNITS/ML VIAL (FIVE THOUSAND) SUBCUT SCH (22:00)
--- NOTE | 2017-03-12 22:40 | HP ---
CC: Josiah Ordoñez NP* [facility] MEDICINE HISTORY AND PHYSICAL: DATE OF ADMISSION: 03/12/17 PRIMARY CARE PROVIDER: Josiah Ordoñez NP ATTENDING PHYSICIAN: Dr. Lopez Rojas* (dictation provided by Carmelina Jessica NP ). CHIEF COMPLAINT: Cough, confusion, weakness. HISTORY OF PRESENT ILLNESS: Ms. Agarwal is a 76-year-old female with a past medical history of COPD, dementia, hypertension, history of CVA, and CKD stage 3 as well as AFib, on Pradaxa, who presents to the hospital today with concern for cough, weakness, and altered mental status. Ms. Agarwal is oriented but most of the information today is obtained from her son, who is at the bedside with whom she lives. Per the report, Ms. Agarwal had had night terrors starting couple of months ago. For this, she was initially started on risperidone at 0.5 mg and this was increased to 1 mg. The patient since then has developed confusion per the son's report. He feels like this has been ongoing for 2 months and it has been gradual, but is much worse today. He notes that she is also much weaker over the last few days. Today, she took 20 minutes to walk from the bathroom to the bedroom with a walker, which is only a few feet away. He has also noted over the past couple of days that she has had a cough and today she sounded very wheezy and therefore he brought her to the emergency room. He has not noticed any fever. There has been no chills. There has been no nausea, vomiting, or diarrhea. The patient has not complained of anything else. He notes that she does have bilateral lower extremity edema. It is unclear whether or not this is worse than baseline. PAST MEDICAL HISTORY: 1. COPD. 2. Diastolic congestive heart failure. 3. History of pancreatitis associated with an ERCP. 4. History of choledocholithiasis. 5. Dementia. 6. History of CVA. 7. CKD, stage 3. 8. Coronary artery disease. 9. Hypertension. 10. Depression. 11. Type 2 diabetes, noninsulin dependent. 12. History of cholecystectomy. 13. AFib. MEDICATIONS: 1. Loperamide 2 mg p.o. q.4 hours p.r.n. 2. Ipratropium 0.5 mg inhaled q.6 hours p.r.n. 3. Furosemide 20 mg p.o. daily. 4. Risperidone 1 mg p.o. at bedtime. 5. Dabigatran 150 mg p.o. b.i.d. 6. Pravastatin 40 mg p.o. daily. 7. Donepezil 10 mg p.o. q.a.m. 8. Carvedilol 12.5 mg p.o. b.i.d. 9. Albuterol inhaled q.4 hours p.r.n. via nebulizer. 10. Glipizide 5 mg p.m. and 10 mg a.m. 11. Sertraline 50 mg p.o. daily. ALLERGIES: No known drug allergies. FAMILY HISTORY: The patient's mother had heart disease. Father related to old age. SOCIAL HISTORY: The patient is a smoker, but quit smoking in her teens. There is no reported alcohol or drug use. She lives with her son, who is the healthcare proxy. REVIEW OF SYSTEMS: A 14-point review of systems was completed with the patient and her son and all those not mentioned above were negative. PHYSICAL EXAMINATION GENERAL: Ms. Agarwal is lying in the bed. She is audibly wheezy, but in no acute distress. VITAL SIGNS: Temperature 98.1, heart rate 60, respiratory rate 21, O2 saturation 97% on room air, blood pressure 140/68. LUNGS: Wheezing bilaterally with no accessory muscle use and good aeration. HEART: S1, S2. No murmur, rub, or gallop. ABDOMEN: Soft, nontender with bowel sounds positive x4. EXTREMITIES: Positive for 2 to 3+ pitting edema up to the knee. NEUROLOGIC: She is alert, she is oriented x3, but she is clearly confused about details. She moves all extremities equally. There is no facial asymmetry or focal weakness. Extraocular movements are intact. SKIN: Intact. DIAGNOSTIC STUDIES/LAB DATA: Sodium 137, potassium 4.3, chloride 103, serum bicarbonate 29, BUN 28, creatinine 1.22, glucose 201, lactic acid 1.6. Troponin 0.02. CRP 20.13. BNP 292. WBC 8.9, hemoglobin 13.4, hematocrit 40, platelet count 192. ABG shows pH 7.37, pCO2 49, pO2 153, and bicarbonate 26.5. Chest x-ray shows no acute intrathoracic process. The CT brain shows old infarct in the medial occipital lobe on the right, chronic ischemic white matter change. No intracranial mass or hemorrhage is noted. ASSESSMENT AND PLAN: Ms. Agarwal is a 76-year-old female with a past medical history of chronic obstructive pulmonary disease, chronic kidney disease, atrial fibrillation, who presents today to the hospital with concern for cough with wheezing associated with worsening confusion and weakness in the setting of recently starting on Risperdal. Our plans are for inpatient admission as I suspect the length of stay to be greater than 2 days for the followin. Chronic obstructive pulmonary disease exacerbation. I suspect the patient' s cough and wheezing is related to chronic obstructive pulmonary disease. There is no evidence of fluid overload on the chest x-ray and her BNP is only 300. I plan to treat with prednisone 60 mg p.o. daily and nebulizers. The patient will also have oxygen available as needed. See no evidence of an infiltrate suggestive of pneumonia. 2. Edema. The patient has significant 2 to 3+ lower extremity edema. She is on 40 of Lasix at home. I plan to switch over to IV Lasix, which I will start in the a.m. I question whether or not the significant edema is playing into her weakness and difficulty with ambulating. 3. Altered mental status. The patient's sons states that she has been very confused at home over the past 2 months since starting on risperidone. Plan to discontinue that now. 4. Atrial fibrillation. Continue dabigatran and carvedilol. 5. Depression. Continue sertraline. 6. DVT prophylaxis with Pradaxa. 7. Code status is DNR. TIME SPENT: Approximately 60 minutes were spent on the admission of this patient, more than half of the time was spent with the patient at the bedside reviewing the events leading up to this hospitalization, performing the physical examination, and reviewing the plan of care. CARMELINA JESSICA NP [id number]/LAYTON #: [id number] JACOBY
[2017-03-13] MEDS ORDERED: Dextrose 50% Syringe 50 ML* 25 GM/50 ML SYRINGE IV PUSH PRN (07:50)
--- NOTE | 2017-03-13 07:51 | PN ---
Subjective Date of Service: 03/13/17 Interval History: Ms. Agarwal states that she is feeling fairly well. She notes persistent wheezing and a non-productive cough. She denies any other complaint including chest pain , nausea, or abdominal pain. Objective Active Medications: Albuterol (Ventolin Hfa Inhaler*) 1 puff INH Q4H PRN Albuterol/Ipratropium (Duoneb (Albuterol 2.5 Mg/Ipratropium 0.5 Mg)) 1 neb INH Q4H PRN Carvedilol (Coreg Tab*) 12.5 mg PO BID GABE Dabigatran (Pradaxa Cap(Nf)) 150 mg PO BID GABE Donepezil HCl (Aricept Tab*) 10 mg PO QAM GABE Furosemide (Lasix Iv*) 40 mg IV ONCE ONE Prednisone (Deltasone Tab*) 60 mg PO DAILY GABE Sertraline HCl (Zoloft*) 50 mg PO DAILY AGBE Vital Signs: Temp Pulse Resp BP Pulse Ox 97.6 F 49 24 142/90 98 03/13/17 07:02 03/13/17 07:02 03/13/17 07:02 03/13/17 07:08 03/13/17 07:02 Oxygen Devices in Use Now: - - 2L NC Appearance: Female sitting up in bed in NAD Eyes: No Scleral Icterus Ears/Nose/Mouth/Throat: Mucous Membranes Moist Neck: Trachea Midline Respiratory: Symmetrical Chest Expansion and Respiratory Effort, - - Wheezing bilaterally Cardiovascular: NL Sounds; No Murmurs; No JVD, - - +1-2 pitting edema to bilateral LEs Abdominal: NL Sounds; No Tenderness; No Distention, No Hepatosplenomegaly Lymphatic: No Cervical Adenopathy Skin: No Rash or Ulcers Neurological: Alert and Oriented x 3, NL Muscle Strength and Tone Nutrition: Taking PO's Result Diagrams: 03/13/17 06:42 03/13/17 06:42 Additional Lab and Data: Lab Results 03/12/17 03/12/17 03/12/17 Range/Units 15:45 16:00 16:00 WBC (3.5-10.8) 10^3/ul RBC (4.0-5.4) 10^6/ul Hgb (12.0-16.0) g/dl Hct (35-47) % MCV (80-97) fL MCH (27-31) pg MCHC (31-36) g/dl RDW (10.5-15) % Plt Count (150-450) 10^3/ul MPV (7.4-10.4) um3 Neut % (Auto) (38-83) % Lymph % (Auto) (25-47) % Sac % (Auto) (1-9) % Eos % (Auto) (0-6) % Baso % (Auto) (0-2) % Absolute Neuts (auto) (1.5-7.7) 10^3/ul Absolute Lymphs (auto) (1.0-4.8) 10^3/ul Absolute Monos (auto) (0-0.8) 10^3/ul Absolute Eos (auto) (0-0.6) 10^3/ul Absolute Basos (auto) (0-0.2) 10^3/ul Absolute Nucleated RBC 10^3/ul Nucleated RBC % Patient Temperature Not Reportable ABG pH 7.37 (7.35-7.45) ABG pH (Temp Correct) Not Reportable ABG pCO2 49 H (35-45) mmHg ABG pCO2 (Temp Corrct Not Reportable ABG pO2 153 H (80-100) mmHg ABG pO2 (Temp Correct Not Reportable ABG HCO3 26.5 (19-31) mmol/L ABG O2 Saturation 99.6 H (95-98) % ABG Base Excess 2.1 H (-2.0-2.0) Respiration Rate Not Reportable O2 Delivery Device n/c Ventilator Type Not Reportable Vent Mode Not Reportable FiO2 2 Inspiratory Time Not Reportable PEEP Not Reportable Pressure Support Not Reportable Pressure Control Not Reportable EPAP Not Reportable IPAP Not Reportable BiPAP Not Reportable Sodium 137 (133-145) mmol/L Potassium 4.3 (3.5-5.0) mmol/L Chloride 103 (101-111) mmol/L Carbon Dioxide 29 (22-32) mmol/L Anion Gap 5 (2-11) mmol/L BUN 28 H (6-24) mg/dL Creatinine 1.22 H (0.51-0.95) mg/dL Est GFR ( Amer) 55.3 (>60) Est GFR (Non-Af Amer) 43.0 (>60) BUN/Creatinine Ratio 23.0 H (8-20) Glucose 201 H (70-100) mg/dL Lactic Acid (0.5-2.0) mmol/L Calcium 8.7 (8.6-10.3) mg/dL Total Bilirubin 0.40 (0.2-1.0) mg/dL AST 16 (13-39) U/L ALT 14 (7-52) U/L Alkaline Phosphatase 69 (34-104) U/L Total Creatine Kinase 70 (10-223) U/L CK-MB (CK-2) 1.5 (0.6-6.3) ng/mL Troponin I 0.02 (<0.04) ng/mL C-Reactive Protein 20.13 H (< 5.00) mg/L B-Natriuretic Peptide 292 H ( - 100) pg/mL Total Protein 7.1 (6.4-8.9) g/dL Albumin 3.2 (3.2-5.2) g/dL Globulin 3.9 (2-4) g/dL Albumin/Globulin Ratio 0.8 L (1-3) 03/12/17 03/12/17 Range/Units 16:00 16:00 WBC 8.9 (3.5-10.8) 10^3/ul RBC 4.42 (4.0-5.4) 10^6/ul Hgb 13.4 (12.0-16.0) g/dl Hct 40 (35-47) % MCV 90 (80-97) fL MCH 30 (27-31) pg MCHC 34 (31-36) g/dl RDW 15 (10.5-15) % Plt Count 192 (150-450) 10^3/ul MPV 9 (7.4-10.4) um3 Neut % (Auto) 80.0 (38-83) % Lymph % (Auto) 10.4 L (25-47) % Sac % (Auto) 7.9 (1-9) % Eos % (Auto) 1.3 (0-6) % Baso % (Auto) 0.4 (0-2) % Absolute Neuts (auto) 7.1 (1.5-7.7) 10^3/ul Absolute Lymphs (auto) 0.9 L (1.0-4.8) 10^3/ul Absolute Monos (auto) 0.7 (0-0.8) 10^3/ul Absolute Eos (auto) 0.1 (0-0.6) 10^3/ul Absolute Basos (auto) 0 (0-0.2) 10^3/ul Absolute Nucleated RBC 0 10^3/ul Nucleated RBC % 0 Patient Temperature ABG pH (7.35-7.45) ABG pH (Temp Correct) ABG pCO2 (35-45) mmHg ABG pCO2 (Temp Corrct ABG pO2 (80-100) mmHg ABG pO2 (Temp Correct ABG HCO3 (19-31) mmol/L ABG O2 Saturation (95-98) % ABG Base Excess (-2.0-2.0) Respiration Rate O2 Delivery Device Ventilator Type Vent Mode FiO2 Inspiratory Time PEEP Pressure Support Pressure Control EPAP IPAP BiPAP Sodium (133-145) mmol/L Potassium (3.5-5.0) mmol/L Chloride (101-111) mmol/L Carbon Dioxide (22-32) mmol/L Anion Gap (2-11) mmol/L BUN (6-24) mg/dL Creatinine (0.51-0.95) mg/dL Est GFR ( Amer) (>60) Est GFR (Non-Af Amer) (>60) BUN/Creatinine Ratio (8-20) Glucose (70-100) mg/dL Lactic Acid 1.6 (0.5-2.0) mmol/L Calcium (8.6-10.3) mg/dL Total Bilirubin (0.2-1.0) mg/dL AST (13-39) U/L ALT (7-52) U/L Alkaline Phosphatase (34-104) U/L Total Creatine Kinase (10-223) U/L CK-MB (CK-2) (0.6-6.3) ng/mL Troponin I (<0.04) ng/mL C-Reactive Protein (< 5.00) mg/L B-Natriuretic Peptide ( - 100) pg/mL Total Protein (6.4-8.9) g/dL Albumin (3.2-5.2) g/dL Globulin (2-4) g/dL Albumin/Globulin Ratio (1-3) Assess/Plan/Problems-Billing Assessment: Ms. Agarwal is a 76 yo female with a PMH of COPD, CVA, CKD who was admitted on 03/12 with COPD exacerbation, weakness, confusion, and worsening LE edema. - Patient Problems (1) COPD (chronic obstructive pulmonary disease) Comment: - With exacerbation, minimal improvement. - Continue prednisone, duonebs, and O2. - Recommend adding spiriva at discharge. (2) Confusion Comment: - Oriented and appropriate this morning. - Son reports that her weakness and confusion seem to have started when she was started on risperdone for night terrors. - Discontinue risperdone. - Physical therapy to eval mobility. (3) CHF (congestive heart failure) Comment: - LE edema without evidence of pulmonary vascular congestion. - Continue IV lasix with hopes of decreasing edema and improving mobility. (4) HTN (hypertension) Comment: - SBP peaked at 200 overnight. - Continue carvedilol, plan for increased furosemide today. - Monitor, add additional agents as needed. (5) Type 2 diabetes mellitus Comment: - Continue BGs qAC with Lispro SSI coverage. - Hold glipizide. (6) CKD (chronic kidney disease) Comment: - At baseline. - Monitor closely with diuresis. (7) Dementia Comment: - Continue donepezil. (8) Depression Comment: - Continue sertraline. (9) Status post CVA Comment: - Continue pradaxa. (10) DVT prophylaxis Comment: - Continue pradaxa. (11) DNR (do not resuscitate) Status and Disposition: Inpatient with expected LOS > 2 days. Family concerned that they are not able to take care of patient at home any longer and have been looking into NH placement. TASIA had been scheduled for next week. applications support lead following.
[2017-03-13] MEDS: Carvedilol TAB* 6.25 MG PO SCH ×2 (07:58→20:56)
[2017-03-13] MEDS: Donepezil TAB* 5 MG PO SCH (07:58)
[2017-03-13] MEDS: predniSONE TAB* 20 MG PO SCH (07:58)
[2017-03-13] MEDS: Sertraline* 50 MG TAB PO SCH (07:58)
[2017-03-13] MEDS: CMCS:Dabigatran CAP(NF) 150 MG CAP PO SCH ×2 (07:59→20:56)
[2017-03-13] MEDS ORDERED: Furosemide IV* 10 MG/ML VIAL (40 MG) IV ONE (08:00)
[2017-03-13 08:04] LABS: Hematocrit 41 % (35-47); Hemoglobin 13.5 g/dl (12.0-16.0); Mean Corpuscular HGB Conc 33 g/dl (31-36); Mean Corpuscular Hemoglobin 30 pg (27-31); Mean Corpuscular Volume 90 fL (80-97); Mean Platelet Volume 10 um3 (7.4-10.4); Red Cell Distribution Width 15 % (10.5-15); White Blood Count 7.5 10^3/ul (3.5-10.8)
[2017-03-13] MEDS: Albuterol/Ipratropium NEB.SOL* Albuterol 2.5 MG/Ipratropium 0.5 MG 3 ML INH PRN (08:25)
[2017-03-13 08:26] LABS: Calcium 8.6 mg/dL (8.6-10.3); EGFR African American 60.4 (>60); EGFR Non-African American 46.9 (>60); Potassium 4.4 mmol/L (3.5-5.0)
[2017-03-13] MEDS: Insulin LISPRO* 1 UNITS UNIT SUBCUT SCH ×3 (09:59→17:58)
[2017-03-14 06:50] LABS: Calcium 8.2 mg/dL (8.6-10.3); EGFR African American 61.6 (>60); EGFR Non-African American 47.9 (>60)
[2017-03-14] MEDS: CMCS:Dabigatran CAP(NF) 150 MG CAP PO SCH ×2 (08:55→20:03)
[2017-03-14] MEDS: Donepezil TAB* 5 MG PO SCH (08:55)
[2017-03-14] MEDS: predniSONE TAB* 20 MG PO SCH (08:56)
[2017-03-14] MEDS: Sertraline* 50 MG TAB PO SCH (08:56)
[2017-03-14] MEDS: Insulin LISPRO* 1 UNITS UNIT SUBCUT SCH ×3 (08:56→18:06)
[2017-03-14] MEDS: Carvedilol TAB* 6.25 MG PO SCH ×2 (08:56→20:03)
[2017-03-14] MEDS: Albuterol/Ipratropium NEB.SOL* Albuterol 2.5 MG/Ipratropium 0.5 MG 3 ML INH PRN (09:14)
--- NOTE | 2017-03-14 13:45 | PN ---
Subjective Date of Service: 03/14/17 Interval History: Ms. Agarwal states that she feels generally weak and fatigued. She continues to have alot of wheezing and an intermittent cough. She denies any other complaint. Objective Active Medications: Albuterol (Ventolin Hfa Inhaler*) 1 puff INH Q4H PRN Albuterol/Ipratropium (Duoneb (Albuterol 2.5 Mg/Ipratropium 0.5 Mg)) 1 neb INH Q4H PRN Carvedilol (Coreg Tab*) 12.5 mg PO BID GABE Dabigatran (Pradaxa Cap(Nf)) 150 mg PO BID GABE Dextrose (D50w Syringe 50 Ml*) 12.5 gm IV PUSH .FOR FS < 60 - SS PRN Donepezil HCl (Aricept Tab*) 10 mg PO QAM GABE Insulin Human Lispro (Humalog*) 0 units SUBCUT AC GABE Prednisone (Deltasone Tab*) 60 mg PO DAILY GABE Sertraline HCl (Zoloft*) 50 mg PO DAILY [facility] [place] Vital Signs: Temp Pulse Resp BP Pulse Ox 97.6 F 64 20 120/80 95 03/14/17 11:32 03/14/17 11:32 03/14/17 11:32 03/14/17 11:40 03/14/17 11:32 Oxygen Devices in Use Now: Nasal Cannula - 2L NC Appearance: Elderly female lying in bed in NAD Eyes: No Scleral Icterus Ears/Nose/Mouth/Throat: Mucous Membranes Moist Neck: Trachea Midline Respiratory: Symmetrical Chest Expansion and Respiratory Effort, - - Wheezing, ? if radiating from upper airway only Cardiovascular: NL Sounds; No Murmurs; No JVD, - - +1 edema to B LEs Abdominal: NL Sounds; No Tenderness; No Distention Lymphatic: No Cervical Adenopathy Skin: No Rash or Ulcers Neurological: Alert and Oriented x 3, NL Muscle Strength and Tone Nutrition: Taking PO's Result Diagrams: 03/13/17 06:42 03/14/17 06:15 Additional Lab and Data: Lab Results 03/12/17 03/12/17 03/12/17 Range/Units 15:45 16:00 16:00 WBC (3.5-10.8) 10^3/ul RBC (4.0-5.4) 10^6/ul Hgb (12.0-16.0) g/dl Hct (35-47) % MCV (80-97) fL MCH (27-31) pg MCHC (31-36) g/dl RDW (10.5-15) % Plt Count (150-450) 10^3/ul MPV (7.4-10.4) um3 Neut % (Auto) (38-83) % Lymph % (Auto) (25-47) % [place] % (Auto) (1-9) % Eos % (Auto) (0-6) % Baso % (Auto) (0-2) % Absolute Neuts (auto) (1.5-7.7) 10^3/ul Absolute Lymphs (auto) (1.0-4.8) 10^3/ul Absolute Monos (auto) (0-0.8) 10^3/ul Absolute Eos (auto) (0-0.6) 10^3/ul Absolute Basos (auto) (0-0.2) 10^3/ul Absolute Nucleated RBC 10^3/ul Nucleated RBC % Patient Temperature Not Reportable ABG pH 7.37 (7.35-7.45) ABG pH (Temp Correct) Not Reportable ABG pCO2 49 H (35-45) mmHg ABG pCO2 (Temp Corrct Not Reportable ABG pO2 153 H (80-100) mmHg ABG pO2 (Temp Correct Not Reportable ABG HCO3 26.5 (19-31) mmol/L ABG O2 Saturation 99.6 H (95-98) % ABG Base Excess 2.1 H (-2.0-2.0) Respiration Rate Not Reportable O2 Delivery Device n/c Ventilator Type Not Reportable Vent Mode Not Reportable FiO2 2 Inspiratory Time Not Reportable PEEP Not Reportable Pressure Support Not Reportable Pressure Control Not Reportable EPAP Not Reportable IPAP Not Reportable BiPAP Not Reportable Sodium 137 (133-145) mmol/L Potassium 4.3 (3.5-5.0) mmol/L Chloride 103 (101-111) mmol/L Carbon Dioxide 29 (22-32) mmol/L Anion Gap 5 (2-11) mmol/L BUN 28 H (6-24) mg/dL Creatinine 1.22 H (0.51-0.95) mg/dL Est GFR ( Amer) 55.3 (>60) Est GFR (Non-Af Amer) 43.0 (>60) BUN/Creatinine Ratio 23.0 H (8-20) Glucose 201 H (70-100) mg/dL Lactic Acid (0.5-2.0) mmol/L Calcium 8.7 (8.6-10.3) mg/dL Total Bilirubin 0.40 (0.2-1.0) mg/dL AST 16 (13-39) U/L ALT 14 (7-52) U/L Alkaline Phosphatase 69 (34-104) U/L Total Creatine Kinase 70 (10-223) U/L CK-MB (CK-2) 1.5 (0.6-6.3) ng/mL Troponin I 0.02 (<0.04) ng/mL C-Reactive Protein 20.13 H (< 5.00) mg/L B-Natriuretic Peptide 292 H ( - 100) pg/mL Total Protein 7.1 (6.4-8.9) g/dL Albumin 3.2 (3.2-5.2) g/dL Globulin 3.9 (2-4) g/dL Albumin/Globulin Ratio 0.8 L (1-3) 03/12/17 03/12/17 Range/Units 16:00 16:00 WBC 8.9 (3.5-10.8) 10^3/ul RBC 4.42 (4.0-5.4) 10^6/ul Hgb 13.4 (12.0-16.0) g/dl Hct 40 (35-47) % MCV 90 (80-97) fL MCH 30 (27-31) pg MCHC 34 (31-36) g/dl RDW 15 (10.5-15) % Plt Count 192 (150-450) 10^3/ul MPV 9 (7.4-10.4) um3 Neut % (Auto) 80.0 (38-83) % Lymph % (Auto) 10.4 L (25-47) % [place] % (Auto) 7.9 (1-9) % Eos % (Auto) 1.3 (0-6) % Baso % (Auto) 0.4 (0-2) % Absolute Neuts (auto) 7.1 (1.5-7.7) 10^3/ul Absolute Lymphs (auto) 0.9 L (1.0-4.8) 10^3/ul Absolute Monos (auto) 0.7 (0-0.8) 10^3/ul Absolute Eos (auto) 0.1 (0-0.6) 10^3/ul Absolute Basos (auto) 0 (0-0.2) 10^3/ul Absolute Nucleated RBC 0 10^3/ul Nucleated RBC % 0 Patient Temperature ABG pH (7.35-7.45) ABG pH (Temp Correct) ABG pCO2 (35-45) mmHg ABG pCO2 (Temp Corrct ABG pO2 (80-100) mmHg ABG pO2 (Temp Correct ABG HCO3 (19-31) mmol/L ABG O2 Saturation (95-98) % ABG Base Excess (-2.0-2.0) Respiration Rate O2 Delivery Device Ventilator Type Vent Mode FiO2 Inspiratory Time PEEP Pressure Support Pressure Control EPAP IPAP BiPAP Sodium (133-145) mmol/L Potassium (3.5-5.0) mmol/L Chloride (101-111) mmol/L Carbon Dioxide (22-32) mmol/L Anion Gap (2-11) mmol/L BUN (6-24) mg/dL Creatinine (0.51-0.95) mg/dL Est GFR ( Amer) (>60) Est GFR (Non-Af Amer) (>60) BUN/Creatinine Ratio (8-20) Glucose (70-100) mg/dL Lactic Acid 1.6 (0.5-2.0) mmol/L Calcium (8.6-10.3) mg/dL Total Bilirubin (0.2-1.0) mg/dL AST (13-39) U/L ALT (7-52) U/L Alkaline Phosphatase (34-104) U/L Total Creatine Kinase (10-223) U/L CK-MB (CK-2) (0.6-6.3) ng/mL Troponin I (<0.04) ng/mL C-Reactive Protein (< 5.00) mg/L B-Natriuretic Peptide ( - 100) pg/mL Total Protein (6.4-8.9) g/dL Albumin (3.2-5.2) g/dL Globulin (2-4) g/dL Albumin/Globulin Ratio (1-3) Assess/Plan/Problems-Billing Assessment: Ms. Agarwal is a 76 yo female with a PMH of COPD, CVA, CKD who was admitted on 03/12 with COPD exacerbation, weakness, confusion, and worsening LE edema. - Patient Problems (1) COPD (chronic obstructive pulmonary disease) Comment: - No clear improvement, question if wheezing is more of an upper airway issue. - Start prednisone as there has been no improvement, continue duonebs, and O2. - Recommend adding spiriva at discharge. (2) Confusion Comment: - Oriented and appropriate this morning. - Son reports that her weakness and confusion seem to have started when she was started on risperdone for night terrors. - Discontinue risperdone. - Physical therapy to eval mobility. (3) CHF (congestive heart failure) Comment: - Improved. - LE edema without evidence of pulmonary vascular congestion. - Switch to po lasix. (4) HTN (hypertension) Comment: - SBP elevated but only at night when she is awoken to take BP abruptly. - Continue carvedilol and furosemide today. - Monitor, add additional agents as needed. (5) Type 2 diabetes mellitus Comment: - Continue BGs qAC with Lispro SSI coverage. - Hold glipizide. (6) CKD (chronic kidney disease) Comment: - At baseline. - Monitor closely with diuresis. (7) Dementia Comment: - Continue donepezil. (8) Depression Comment: - Continue sertraline. (9) Status post CVA Comment: - Continue pradaxa. (10) DVT prophylaxis Comment: - Continue pradaxa. (11) DNR (do not resuscitate) Status and Disposition: Inpatient with expected LOS > 2 days. Family concerned that they are not able to take care of patient at home any longer and have been looking into NH placement. TASIA had been scheduled for next week. boarding house cook following.
[2017-03-14] MEDS ORDERED: Insulin LISPRO* 1 UNITS UNIT SUBCUT ONE (17:32)
--- NOTE | 2017-03-15 07:27 | PN ---
Subjective Date of Service: 03/15/17 Interval History: Ms. Agarwal states she is feeling relatively well today. She has a persistent wheeze and nonproductive cough today. She denies any other complaint. She denies nausea or abdominal pain and is tolerating oral intake well. Objective Active Medications: Albuterol (Ventolin Hfa Inhaler*) 1 puff INH Q4H PRN Albuterol/Ipratropium (Duoneb (Albuterol 2.5 Mg/Ipratropium 0.5 Mg)) 1 neb INH Q4H PRN Carvedilol (Coreg Tab*) 12.5 mg PO BID GABE Dabigatran (Pradaxa Cap(Nf)) 150 mg PO BID GABE Dextrose (D50w Syringe 50 Ml*) 12.5 gm IV PUSH .FOR FS < 60 - SS PRN Donepezil HCl (Aricept Tab*) 10 mg PO QAM GABE Furosemide (Lasix Tab*) 40 mg PO DAILY GABE Insulin Human Lispro (Humalog*) 0 units SUBCUT AC GABE Prednisone (Deltasone Tab*) 40 mg PO DAILY GABE Sertraline HCl (Zoloft*) 50 mg PO DAILY GABE Vital Signs: Temp Pulse Resp BP Pulse Ox 97.8 F 65 18 158/66 95 03/14/17 23:41 03/14/17 23:41 03/14/17 23:41 03/14/17 23:41 03/14/17 23:41 Oxygen Devices in Use Now: Nasal Cannula - 2L NC Appearance: Female sitting up in chair in NAD Eyes: No Scleral Icterus Ears/Nose/Mouth/Throat: Mucous Membranes Moist Neck: Trachea Midline Respiratory: Symmetrical Chest Expansion and Respiratory Effort, - - Rhonchi with occasional wheeze bilaterally Cardiovascular: NL Sounds; No Murmurs; No JVD, - - +1 edema B LEs Abdominal: NL Sounds; No Tenderness; No Distention Lymphatic: No Cervical Adenopathy Skin: No Rash or Ulcers Neurological: Alert and Oriented x 3, NL Muscle Strength and Tone Result Diagrams: 03/13/17 06:42 03/14/17 06:15 Additional Lab and Data: . Assess/Plan/Problems-Billing Assessment: Ms. Agarwal is a 76 yo female with a PMH of COPD, CVA, CKD who was admitted on 03/12 with COPD exacerbation, weakness, confusion, and worsening LE edema. - Patient Problems (1) CHF (congestive heart failure) Comment: - Acute on chronic heart failure, diastolic. - No clear improvement in wheezing and SOB, repeat cxray raises suspicion for vascular congestion. - Plan for one time extra dose IV lasix now, reassess in AM. (2) COPD (chronic obstructive pulmonary disease) Comment: - Start prednisone taper as there has been no improvement with steroids, continue duonebs, and O2. - Recommend adding spiriva at discharge. (3) Encephalopathy Comment: - Resolved. - Toxic-metabolic, thought to be related to risperdone. Med discontinued. (4) HTN (hypertension) Comment: - SBP elevated but only at night when she is awoken to take BP abruptly. - Continue carvedilol and furosemide today. - Monitor, add additional agents as needed. (5) Type 2 diabetes mellitus Comment: - Add lantus for elevated BGs, continue Lispro SSI coverage. - Hold glipizide. (6) CKD (chronic kidney disease) Comment: - At baseline. - Monitor closely with diuresis. (7) Dementia Comment: - Continue donepezil. (8) Depression Comment: - Continue sertraline. (9) Status post CVA Comment: - Continue pradaxa. (10) DVT prophylaxis Comment: - Continue pradaxa. (11) DNR (do not resuscitate) Status and Disposition: Inpatient with expected LOS > 2 days. Family concerned that they are not able to take care of patient at home any longer and have been looking into NH placement. TASIA had been scheduled for next week. cds sales advisor following.
[2017-03-15] MEDS: CMCS:Dabigatran CAP(NF) 150 MG CAP PO SCH ×2 (08:19→20:48)
[2017-03-15] MEDS: predniSONE TAB* 20 MG PO SCH (08:20)
[2017-03-15] MEDS: Insulin GLARGINE(*) 1 UNITS UNIT SUBCUT SCH (08:20)
[2017-03-15] MEDS: Sertraline* 50 MG TAB PO SCH (08:20)
[2017-03-15] MEDS ORDERED: Furosemide TAB* 40 MG PO SCH (09:00)
[2017-03-15] MEDS: Insulin LISPRO* 1 UNITS UNIT SUBCUT SCH ×3 (09:28→17:31)
[2017-03-15] MEDS: Carvedilol TAB* 6.25 MG PO SCH ×2 (09:29→20:48)
--- NOTE | 2017-03-15 09:42 | RAD ---
INDICATION: Exacerbation of COPD COMPARISON: Chest x-ray March 12, 2017 TECHNIQUE: Single AP portable view of the chest was obtained. FINDINGS: Image quality is compromised due to the relative inferiority of a portable chest x-ray. The heart and mediastinum exhibit normal size and contour. Similar the prior chest x-ray there is appearance of mild vascular congestion. Otherwise the lungs are grossly clear. There is no evidence of a large pleural effusion. Visualized bones are normal for the patient's age. IMPRESSION: In the correct clinical setting chest x-ray findings could be compatible with exacerbation of congestive heart failure.
[2017-03-15] MEDS: Donepezil TAB* 5 MG PO SCH (11:33)
[2017-03-15] MEDS ORDERED: Insulin LISPRO* 1 UNITS UNIT SUBCUT ONE ×2 (12:01→17:00)
[2017-03-15] MEDS ORDERED: Furosemide IV* 10 MG/ML VIAL (40 MG) IV ONE (14:18)
[2017-03-16] MEDS ORDERED: hydrALAZINE IV* 20 MG/ML VIAL IV PRN (04:57)
[2017-03-16 05:45] LABS: BUN/Creatinine Ratio 30.8 (8-20); Calcium 8.5 mg/dL (8.6-10.3); EGFR African American 66.4 (>60); EGFR Non-African American 51.7 (>60); Potassium 3.7 mmol/L (3.5-5.0)
[2017-03-16] MEDS ORDERED: Furosemide IV* 10 MG/ML VIAL (40 MG) IV ONE (07:09)
[2017-03-16] MEDS: Insulin LISPRO* 1 UNITS UNIT SUBCUT SCH ×3 (08:25→17:40)
[2017-03-16] MEDS: amLODIPine TAB* 5 MG PO SCH (08:26)
[2017-03-16] MEDS: Carvedilol TAB* 6.25 MG PO SCH ×2 (08:26→20:50)
[2017-03-16] MEDS: CMCS:Dabigatran CAP(NF) 150 MG CAP PO SCH ×2 (08:28→20:51)
[2017-03-16] MEDS: Donepezil TAB* 5 MG PO SCH (08:29)
[2017-03-16] MEDS: predniSONE TAB* 20 MG PO SCH (08:29)
[2017-03-16] MEDS: Insulin GLARGINE(*) 1 UNITS UNIT SUBCUT SCH (08:29)
[2017-03-16] MEDS: Sertraline* 50 MG TAB PO SCH (08:29)
[2017-03-16] MEDS: Albuterol/Ipratropium NEB.SOL* Albuterol 2.5 MG/Ipratropium 0.5 MG 3 ML INH PRN (09:01)
--- NOTE | 2017-03-16 12:06 | PN ---
Subjective Date of Service: 03/16/17 Interval History: Ms. Agarwal denies any complaint this morning. She notes a persistent non- productive cough but doesn't feel short of breath. I spoke with her son who confirmed that she has had worsening wheezy breathing over the past year. He felt that it did become a bit worse immediately prior to her presentation to the ED. He feels that she is close to baseline at this point. Objective Active Medications: Albuterol (Ventolin Hfa Inhaler*) 1 puff INH Q4H PRN Albuterol/Ipratropium (Duoneb (Albuterol 2.5 Mg/Ipratropium 0.5 Mg)) 1 neb INH Q4H PRN Amlodipine Besylate (Norvasc Tab*) 5 mg PO DAILY G[facility] Carvedilol (Coreg Tab*) 12.5 mg PO BID GABE Dabigatran (Pradaxa Cap(Nf)) 150 mg PO BID GABE Dextrose (D50w Syringe 50 Ml*) 12.5 gm IV PUSH .FOR FS < 60 - SS PRN Donepezil HCl (Aricept Tab*) 10 mg PO QAM GABE Hydralazine HCl (Apresoline Iv*) 10 mg IV Q4H PRN Insulin Glargine (Lantus(*)) 5 units SUBCUT QAM GABE Insulin Human Lispro (Humalog*) 0 units SUBCUT AC GABE Prednisone (Deltasone Tab*) 40 mg PO DAILY GABE Sertraline HCl (Zoloft*) 50 mg PO DAILY [facility] Vital Signs: Temp Pulse Resp BP Pulse Ox 97.8 F 80 22 167/67 91 03/16/17 04:28 03/16/17 09:04 03/16/17 09:04 03/16/17 07:23 03/16/17 09:04 Oxygen Devices in Use Now: None - 2L NC Appearance: Female sitting up in bed in NAD Eyes: No Scleral Icterus Ears/Nose/Mouth/Throat: Mucous Membranes Moist Neck: NL Appearance and Movements; NL JVP Respiratory: Symmetrical Chest Expansion and Respiratory Effort, - - Rhonchi and wheezing bilaterally Cardiovascular: NL Sounds; No Murmurs; No JVD, No Edema Abdominal: NL Sounds; No Tenderness; No Distention Lymphatic: No Cervical Adenopathy Extremities: No Edema Skin: No Rash or Ulcers Neurological: Alert and Oriented x 3, NL Muscle Strength and Tone, - - Confused on details Nutrition: Taking PO's Result Diagrams: 03/13/17 06:42 03/16/17 05:02 Additional Lab and Data: . Assess/Plan/Problems-Billing Assessment: Ms. Agarwal is a 76 yo female with a PMH of COPD, CVA, CKD who was admitted on 03/12 with COPD exacerbation, weakness, confusion, and worsening LE edema. - Patient Problems (1) CHF (congestive heart failure) Comment: - Acute on chronic heart failure, diastolic. - No clear improvement in wheezing with diuresis. Repeated lasix x 1 today. - Plan to resume home dose tomorrow (2) COPD (chronic obstructive pulmonary disease) Comment: - Start prednisone taper as there has been no improvement with steroids, continue duonebs, and O2. - Recommend adding spiriva at discharge. (3) Encephalopathy Comment: - Resolved. - Toxic-metabolic, thought to be related to risperdone. Med discontinued. (4) HTN (hypertension) Comment: - SBP elevated. - Continue carvedilol and IV furosemide today. Amlodipine added as well. (5) Type 2 diabetes mellitus Comment: - Add lantus for elevated BGs, increase Lispro SSI coverage. - AM BGs have been 170s, but she is grossly uncontrolled throughout the day. Nutrition consult requested to decrease carbs in diet. Likely exacerbated by steriods, taper started. - Hold glipizide. (6) CKD (chronic kidney disease) Comment: - At baseline. - Monitor closely with diuresis. (7) Dementia Comment: - Continue donepezil. (8) Depression Comment: - Continue sertraline. (9) Status post CVA Comment: - Continue pradaxa. (10) DVT prophylaxis Comment: - Continue pradaxa. (11) DNR (do not resuscitate) Status and Disposition: Inpatient with expected LOS > 2 days. Family concerned that they are not able to take care of patient at home any longer and have been looking into NH placement. television inspector and SW following, applications sent to local [place].
[2017-03-17 05:03] VITALS: BP 168/86
[2017-03-17] MEDS: Carvedilol TAB* 6.25 MG PO SCH (08:04)
[2017-03-17] MEDS: CMCS:Dabigatran CAP(NF) 150 MG CAP PO SCH (08:04)
[2017-03-17] MEDS: predniSONE TAB* 20 MG PO SCH (08:04)
[2017-03-17] MEDS: Donepezil TAB* 5 MG PO SCH (08:04)
[2017-03-17] MEDS: Sertraline* 50 MG TAB PO SCH (08:04)
[2017-03-17] MEDS: amLODIPine TAB* 5 MG PO SCH (08:05)
[2017-03-17] MEDS: Insulin LISPRO* 1 UNITS UNIT SUBCUT SCH ×2 (08:05→11:52)
[2017-03-17] MEDS: Insulin GLARGINE(*) 1 UNITS UNIT SUBCUT SCH (08:05)
[2017-03-17] MEDS ORDERED: Furosemide TAB* 20 MG PO SCH (09:00)
--- NOTE | 2017-03-17 11:36 | DCNOTE ---
Subjective Date of Service: 03/17/17 Interval History: Patient seen and examined at bedside. Patient reports some shortness of breath. She states she does have a cough but isn't really able to cough anything up. Patient denies pain. Patient up to chair with assistance. Family History: Unchanged from Admission Social History: Unchanged from Admission Past Medical History: Unchanged from Admission Objective Active Medications: Albuterol (Ventolin Hfa Inhaler*) 1 puff INH Q4H PRN Albuterol/Ipratropium (Duoneb (Albuterol 2.5 Mg/Ipratropium 0.5 Mg)) 1 neb INH Q4H PRN Amlodipine Besylate (Norvasc Tab*) 5 mg PO DAILY GABE Carvedilol (Coreg Tab*) 12.5 mg PO BID GABE Dabigatran (Pradaxa Cap(Nf)) 150 mg PO BID GABE Dextrose (D50w Syringe 50 Ml*) 12.5 gm IV PUSH .FOR FS < 60 - SS PRN Donepezil HCl (Aricept Tab*) 10 mg PO QAM GABE Furosemide (Lasix Tab*) 20 mg PO DAILY GABE Hydralazine HCl (Apresoline Iv*) 10 mg IV Q4H PRN Insulin Glargine (Lantus(*)) 5 units SUBCUT QAM GABE Insulin Human Lispro (Humalog*) 0 units SUBCUT AC GABE Prednisone (Deltasone Tab*) 40 mg PO DAILY [facility] Sertraline HCl (Zoloft*) 50 mg PO DAILY [facility] 03/17/17 03/17/17 03/17/17 02:46 03:26 04:20 Temperature 98.0 F Pulse Rate 84 80 Respiratory 20 20 Rate Blood Pressure 168/86 (mmHg) O2 Sat by Pulse 94 96 Oximetry Oxygen Devices in Use Now: None - 2L NC Appearance: sitting up in bed, NAD Eyes: No Scleral Icterus Ears/Nose/Mouth/Throat: NL Teeth, Lips, Gums Neck: NL Appearance and Movements; NL JVP Respiratory: Symmetrical Chest Expansion and Respiratory Effort, - - audible wheezing; upper airway Cardiovascular: NL Sounds; No Murmurs; No JVD, RRR Abdominal: NL Sounds; No Tenderness; No Distention Extremities: - - 1+ edema Skin: No Rash or Ulcers Neurological: NL Muscle Strength and Tone, - - AO to self and place Lines/Tubes/Other Access: Clean, Dry and Intact Peripheral IV Nutrition: Taking PO's Result Diagrams: 03/13/17 06:42 03/16/17 05:02 Additional Lab and Data: . Assess/Plan/Problems-Billing Assessment: Ms. Agarwal is a 76 yo female with a PMH of COPD, CVA, CKD who was admitted on 03/12 with COPD exacerbation, weakness, confusion, and worsening LE edema. - Patient Problems (1) CHF (congestive heart failure) (2) COPD (chronic obstructive pulmonary disease) (3) Encephalopathy (4) CKD (chronic kidney disease) (5) Type 2 diabetes mellitus (6) Afib (7) HTN (hypertension) (8) Dementia (9) Depression (10) Status post CVA (11) DVT prophylaxis (12) DNR (do not resuscitate) Status and Disposition: Inpatient with expected LOS > 2 days. Family concerned that they are not able to take care of patient at home any longer and have been looking into NH placement. Stable to be discharged to [facility].
[2017-03-17] MEDS: Albuterol/Ipratropium NEB.SOL* Albuterol 2.5 MG/Ipratropium 0.5 MG 3 ML INH PRN (11:50)
--- NOTE | 2017-03-17 13:11 | DS ---
DISCHARGE SUMMARY: DATE OF ADMISSION: 03/12/17 DATE OF DISCHARGE: 03/17/17. PRIMARY CARE PROVIDER: Josiah Roth NP. ATTENDING PHYSICIAN: Dr. Adelaida Li MD* (report dictated by Trish Barron NP). REASON FOR ADMISSION: 1. Acute on chronic diastolic congestive heart failure. 2. Acute COPD exacerbation. 3. Encephalopathy most likely due to Risperdal. SECONDARY DIAGNOSES: Dementia, history of cerebrovascular accident, atrial fibrillation, chronic kidney disease stage 3, coronary artery disease, hypertension, depression, type 2 diabetes. STUDIES WHILE IN THE HOSPITAL: 1. CT of the brain without contrast 03/12/17, old infarct in the medial occipital lobe on the right, chronic ischemic white matter change. No intracranial mass or hemorrhages noted. 2. Chest x-ray PA and lateral 03/12/17, cardiomegaly, no active cardiopulmonary disease. 3. Chest x-ray 03/15/17, in the current clinical setting chest x-ray findings compatible with exacerbation of congestive heart failure. MEDICATIONS AT THE TIME OF DISCHARGE: New medication: 1. Ventolin nebulizers 2.5 mg inhaled every 6 hours. 2. Lispro sliding scale. 3. Spiriva 1 caps inhaled daily. 4. Norvasc 5 mg daily. 5. Prednisone 20 mg tablet 2 tablets 4 days, 1 tablet for 4 days, half tablet for 4 and stop. The following medications are the medications that the patient came in on: 1. Zoloft 50 mg oral daily. 2. Aricept 10 mg oral daily. 3. Carvedilol 12.5 mg oral twice daily. 4. Ventolin HFA 1 puff inhaled every 4 hours as needed. 5. Glucotrol 5 mg oral in the evening. 6. Glucotrol 10 mg oral in the morning. 7. Pravastatin 40 mg oral daily. 8. Imodium 2 mg every 4 hours as needed. 9. Lasix 20 mg oral daily. 10. Pradaxa 150 mg oral twice daily. Patient was instructed to stop Risperdal and stop Atrovent nebulizers. HISTORY OF PRESENT ILLNESS AND HOSPITAL COURSE: Ms. Agarwal is a 76-year-old female with past medical history significant for COPD, dementia, hypertension, history of CVA, CKD stage 3, as well as AFib, who presented to the emergency room on 09/22/17 with concern for cough, weakness as well as altered mental status. Over the past couple of days, the patient had a cough, started increasingly wheezy, and additionally had some increased confusion. The increased confusion was in the setting of recently starting on Risperdal. The patient was admitted to the medical floor for COPD exacerbation as well as acute on chronic diastolic heart failure exacerbation. The patient was placed on standing nebulizers as well as prednisone. There she had oxygen available but did not require much additional oxygen. Her wheezing did persist. Most of this was upper airway congestion and she was encouraged to cough as well as use a flutter valve to help clear these secretions. Standing nebulizers as well as prednisone helped with her breathing and her oxygen was weaned off. She was able to transfer from bed to chair without any increased shortness of breath. There was no evidence of an infiltrate suggestive of pneumonia, hence antibiotics were not used. Patient did have significant lower extremity edema and she was given IV Lasix during the hospitalization here and edema did improve. She was switched back to her home dose on the day of discharge. Although her mental status improved, it became clear that her dementia is progressing as she has been confused for the past 2 months. Risperidone was started. PT and OT evaluated her and was deemed that she would likely require fci placement. In addition, the patient's son stated it was becoming more difficult for them to care for her at home. Hence the fci placement is likely to be intermediate teacher. During her hospitalization, diabetes was controlled with Lantus as well as lispro sliding scale. The use of the steroids made her sugars at times up into the 300s. Upon discharge, her home glipizide will be restarted. This should help with the daily spike from prednisone. Lantus has been discontinued but a very high lispro sliding scale will be continued to help control her blood sugars. For atrial fibrillation, carvedilol and Pradaxa were continued. For her depression, Zoloft was continued. On 03/17/17, vitals were as follows: Temperature 98, heart rate 80, respiratory rate 20, oxygen saturation 96% on room air, blood pressure 168/86. At this point, patient was stable for discharge. DISCHARGE PLANNING: The patient is being discharged to [facility] on a consistent carb, heart healthy diet. The patient should be seen by a physician within 10 days of her arrival at [facility]. For her COPD, in addition to standing nebulizers, she will be started on Spiriva and have albuterol rescue inhaler which she may have to be encouraged to use, given her degree of dementia. The patient should return to the hospital should she experience any worsening shortness of breath or high fever. This is a summarized report of a complex medical history and hospital stay. For details, please see the entire medical record. TIME SPENT: Time of discharge was 50 minute and 25 minutes was spent with the patient discussing discharge plan. CONDITION ON DISCHARGE: Stable. TRISH BARRON NP [id number]/[facility] #: [id number] JACOBY
== END 2017-03-17 14:00 | DRG 291 ==
LOC: ED 14:43 → MEDTELE 17:52 → MED 23:15
PROVIDERS: ADMIT Internal Medicine; ATTEND Internal Medicine
DX: I13.0 Hypertensive heart and chronic kidney disease with heart failure and stage 1 through stage 4 chronic kidney disease, or unspecified chronic kidney disease (principal); I50.33 Acute on chronic diastolic (congestive) heart failure; G92 Toxic encephalopathy; E11.22 Type 2 diabetes mellitus with diabetic chronic kidney disease; J44.1 Chronic obstructive pulmonary disease with (acute) exacerbation; F03.90 Unspecified dementia, unspecified severity, without behavioral disturbance, psychotic disturbance, mood disturbance, and anxiety; N18.3 Chronic kidney disease, stage 3 (moderate); I25.10 Atherosclerotic heart disease of native coronary artery without angina pectoris; T43.595A Adverse effect of other antipsychotics and neuroleptics, initial encounter; I48.91 Unspecified atrial fibrillation; F32.9 Major depressive disorder, single episode, unspecified; Y92.9 Unspecified place or not applicable; Z86.73 Personal history of transient ischemic attack (TIA), and cerebral infarction without residual deficits; Z79.84 Long term (current) use of oral hypoglycemic drugs; Z79.899 Other long term (current) drug therapy; Z82.49 Family history of ischemic heart disease and other diseases of the circulatory system; Z87.891 Personal history of nicotine dependence; Z66 Do not resuscitate
CPT/HCPCS: 36415; 36600; 70450; 71010; 71020; 80048; 80053; 82550; 82553; 82803; 82947; 83605; 83880; 84484; 85025; 86140; 87040; 93005; 94640; 94760; A9270-GY; J0360; J1940; J2930; J7512

== ENCOUNTER 2018-08-17 09:40 | Inpatient (IN) | payer MEDICARE ==
[2018-08-17] MEDS ORDERED: NS 0.9% 1000 ML** 1,000 ML IV ONE (10:00)
[2018-08-17] MEDS ORDERED: Azithromycin IV(*) 500 MG in NS 0.9% 250 ML* 250 ML IVPB ONE (10:00)
[2018-08-17] MEDS ORDERED: cefTRIAXone(*) 1 GM in NS 0.9% 50 ML* 50 ML IVPB ONE (10:02)
[2018-08-17] MEDS ORDERED: methylPREDNISolone 125 MG* 2 ML VIAL IV ONE (10:02)
[2018-08-17] MEDS ORDERED: Albuterol/Ipratropium NEB.SOL* Albuterol 2.5 MG/Ipratropium 0.5 MG 3 ML INH ONE ×2 (10:02→10:30)
[2018-08-17] MEDS ORDERED: NS 0.9% 250 ML* 250 ML ONE (10:13)
[2018-08-17] MEDS ORDERED: Magnesium Sulfate 2 GM IV* 2 GM/50 ML BAG IVPB ONE (10:21)
[2018-08-17 10:23] LABS: ABS Basophils 0 10^3/ul (0-0.2); ABS Eosinophils 0 10^3/ul (0-0.6); ABS Lymphocytes 0.6 10^3/ul (1.0-4.8); ABS Monocytes 0.5 10^3/ul (0-0.8); ABS Nucleated RBC 0 10^3/ul; Eosinophil % 0.3 %; Hematocrit 38 % (35-47); Hemoglobin 12.2 g/dl (12.0-16.0); Mean Corpuscular HGB Conc 32 g/dl (31-36); Mean Corpuscular Hemoglobin 29 pg (27-31); Mean Corpuscular Volume 90 fL (80-97); Mean Platelet Volume 9.4 fL (7.4-10.4); Nucleated Red Blood Cells % 0; Platelet Count 231 10^3/ul (150-450); Red Blood Count 4.21 10^6/ul (4.00-5.40); Red Cell Distribution Width 15 % (10.5-15); White Blood Count 11.1 10^3/ul (3.5-10.8)
--- NOTE | 2018-08-17 10:30 | ED ---
Shortness of Breath - HPI Summary HPI Summary: LEVEL 5 CAVEAT DUE TO DEMENTIA This patient is a 78 year old F brought in by ambulance to ED with a chief complaint of SOB since earlier this morning. halfway staff reports the patient woke up this morning looking short of breath and her lips were blue. They also report shes had a low grade fever for the last couple of days, but she currently doesnt have a fever. The patient rates the pain 0/10 in severity. Symptoms aggravated by nothing. Symptoms alleviated by nothing. PMHx of dementia. - History of Current Complaint Chief Complaint: EDShortnessOfBreath Time Seen by Provider: 08/17/18 09:58 Hx Obtained From: Other: - detention staff Hx From Patient Unobtainable Due To: Dementia Onset/Duration: Sudden Onset, Lasting Hours, Still Present Timing: Constant Current Severity: None Dyspnea At: Rest Aggrevating Factors: Nothing Alleviating Factors: Nothing Associated Signs & Symptoms: Fever - Allergy/Home Medications Allergies/Adverse Reactions: Allergies Allergy/AdvReac Type Severity Reaction Status Date / Time No Known Allergies Allergy Verified 08/17/18 09:47 Home Medications: Home Medications Acetaminophen TAB* [Tylenol TAB*] 650 mg PO Q6H PRN 08/17/18 [History Confirmed 08/17/18] Albuterol 2.5MG/3ML (0.083%)* [Ventolin 2.5 MG/3 ML NEB.SAIMA*] 2.5 mg INH Q6H PRN 08/17/18 [History Confirmed 08/17/18] Albuterol inh POWDER (NF) [Proair Respiclick] 1 puff INH Q4HR PRN 08/17/18 [ History Confirmed 08/17/18] Cholecalciferol TAB* [Vitamin D TAB*] 2,000 units PO DAILY 08/17/18 [History Confirmed 08/17/18] Furosemide TAB* [Lasix TAB*] 40 mg PO DAILY 08/17/18 [History Confirmed 08/17/18 ] Insulin GLARGINE(*) [Lantus(*)] 25 units SUBCUT BEDTIME 08/17/18 [History Confirmed 08/17/18] Insulin GLARGINE(*) [Lantus(*)] 30 units SUBCUT QAM 08/17/18 [History Confirmed 08/17/18] Insulin LISPRO* [HumaLOG*] 10 units SUBCUT AC 08/17/18 [History Confirmed ] Lactase Enzyme (NF) [Lactase Enzyme] 3,000 unit PO AC 08/17/18 [History Confirmed 08/17/18] Lactase Enzyme (NF) [Lactase Enzyme] 3,000 unit PO DAILY PRN 08/17/18 [History Confirmed 08/17/18] Lactobacillus Acidophilus* 1 tab PO BID 08/17/18 [History Confirmed 08/17/18] Skin Protectant * [Critic-Aid Clear Moisture *] 1 applic TOPICAL TID 08/17/18 [ History Confirmed 08/17/18] PMH/Surg Hx/FS Hx/Imm Hx Endocrine/Hematology History: Reports: Hx Diabetes, Hx Thyroid Disease - "operation" Cardiovascular History: Reports: Hx Cardiomegaly, Hx Congestive Heart Failure, Hx Coronary Artery Disease, Hx Hypercholesterolemia - HLD, Hx Hypertension, Other Cardiovascular Problems/Disorders - A-FIB Denies: Hx Pacemaker/ICD Respiratory History: Reports: Hx Chronic Bronchitis, Hx Chronic Obstructive Pulmonary Disease (COPD), Hx Pneumonia, Other Respiratory Problems/Disorders - PNEUMONIA 07/2013 Denies: Hx Asthma GI History: Reports: Hx Gall Bladder Disease, Hx Gastroesophageal Reflux Disease , Hx Jaundice - RELATED TO GALLSTONES, Other GI Disorders - ERCP 2 weeks ago Denies: Hx Ulcer History: Reports: Other Problems/Disorders - RENAL FAILURE IN 2008- FUNCTION IMPROVED Denies: Hx Renal Disease Musculoskeletal History: Reports: Hx Arthritis - OSTEO- IN HANDS AND KNEES, Hx Gout, Other Musculoskeletal History - LEFT HUMERUS FX [id number] TENDER AT TIMES Denies: Hx Orthopedic Injury - NEW DX LEFT SHOULDER FX 07/03/13, Hx Osteoporosis Sensory History: Reports: Hx Cataracts - MILD, Hx Contacts or Glasses, Hx Glaucoma - SLIGHT-NO TREATMENT FOR Denies: Hx Hearing Aid Opthamlomology History: Reports: Hx Cataracts - MILD, Hx Contacts or Glasses, Hx Glaucoma - SLIGHT-NO TREATMENT FOR Neurological History: Reports: Hx Dementia, Hx Headaches - 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 PARTIAL THYROIDECTOMY. ERCP. choley Hx Anesthesia Reactions: Yes - SLOW TO WAKE UP AFTER ERCP - Immunization History Date of Tetanus Vaccine: PT STATES UNSURE Date of Influenza Vaccine: UTD Infectious Disease History: No Infectious Disease History: Reports: Hx Clostridium Difficile Denies: Hx Hepatitis, Hx Human Immunodeficiency Virus (HIV), History Other Infectious Disease, Traveled Outside the [place] in Last 30 Days - Family History Known Family History: Positive: Cardiac Disease, Hypertension - Social History Alcohol Use: None Substance Use Type: Reports: None Smoking Status (MU): Former Smoker Type: Cigarettes Amount Used/How Often: QUIT 50 YEARS AGO, USED ABOUT 1 YEAR Have You Smoked in the Last Year: No Review of Systems Positive: Fever Positive: Shortness Of Breath All Other Systems Reviewed And Are Negative: No Physical Exam - Summary Physical Exam Summary: Appearance: Well appearing, no pain distress Skin: warm, dry, reflects adequate perfusion Head/face: normal Eyes: EOMI, LIZ ENT: normal Neck: supple, non-tender Respiratory: Bilateral wheezing Cardiovascular: Tachycardia, irregular irregular, pulses symmetrical Abdomen: non-tender, soft Musculoskeletal: strength/ROM intact, Bilateral pedal edema Neuro: Alert and confused Triage Information Reviewed: Yes Vital Signs On Initial Exam: Initial Vitals Temp Pulse Resp BP Pulse Ox 98 F 128 26 109/82 92 08/17/18 09:47 08/17/18 09:47 08/17/18 09:47 08/17/18 09:47 08/17/18 09:47 Vital Signs Reviewed: Yes Completion Of Physical Exam Limited Due To: Dementia, Level 5 Diagnostics - Vital Signs Vital Signs Temp Pulse Resp BP Pulse Ox 08/17/18 10:10 25 08/17/18 09:50 22 109/82 08/17/18 09:47 98 F 80 26 109/82 92 - Laboratory Result Diagrams: 08/17/18 10:10 08/17/18 10:10 Lab Statement: Any lab studies that have been ordered have been reviewed, and results considered in the medical decision making process. - Radiology CXR Radiology Interpretation Completed By: Radiologist Summary of Radiographic Findings: 1. CARDIOMEGALY. 2. MULTIFOCAL CONSOLIDATION THROUGHOUT BOTH LUNGS. RECOMMEND FOLLOW-UP UNTIL RESOLUTION TO EXCLUDE UNDERLYING PULMONARY PARENCHYMAL PATHOLOGY. ED physician has reviewed this radiology report. - EKG 0948 Cardiac Rate: Other Rate - rapid afib at 115 BPM EKG Rhythm: Atrial Fibrillation Summary of EKG Findings: LBBB Course/Dx - Course Assessment/Plan: This patient is a 78 year old F brought in by ambulance to ED with a chief complaint of SOB since earlier this morning. Blood work obtained. In the ED course, the patient was given fluids, breathing treatments, solu- medrol, rocephin, xopenex, zithromax, and zosyn. CXR reveals 1. CARDIOMEGALY. 2. MULTIFOCAL CONSOLIDATION THROUGHOUT BOTH LUNGS. RECOMMEND FOLLOW-UP UNTIL RESOLUTION TO EXCLUDE UNDERLYING PULMONARY PARENCHYMAL PATHOLOGY. Consulted Dr. Matthew who accepts the patient for admission to the ICU. This patient will be admitted. Patient understands and agrees with this plan. - Diagnoses Differential Diagnosis/HQI/PQRI: Positive: CHF, COPD Exacerbation, Pneumonia, Pulmonary Edema, Other - COPD, respiratory failure, on bipap Provider Diagnoses: Respiratory failure, COPD (chronic obstructive pulmonary disease), Pneumonia, BiPAP (biphasic positive airway pressure) dependence - Physician Notifications Discussed Care of Patient With: Julio Matthew Time Discussed With Above Provider: 11:00 Instructed by Provider To: Admit As Inpatient - Critical Care Time Critical Care Time: 30-74 min - 30 minutes Discharge - Sign-Out/Discharge Documenting (check all that apply): Patient Departure - admit Patient Received Moderate/Deep Sedation with Procedure: No - Discharge Plan Condition: Stable Disposition: ADMITTED TO [facility] - Billing Disposition and Condition Condition: STABLE Disposition: Admitted to [facility] - Attestation Statements Document Initiated by Scribe: Yes Documenting Scribe: Jim Cordero Provider For Whom Marlen is Documenting (Include Credential): Maynor Hood MD Scribe Attestation: Jim Muñiz, scribed for Maynor Hood MD on 08/17/18 at 1433. Scribe Documentation Reviewed: Yes Provider Attestation: The documentation as recorded by the Jim faulkner accurately reflects the service I personally performed and the decisions made by Maynor cornelius MD Status of Scribe Document: Viewed
[2018-08-17 10:31] LABS: Influenza A Molecular NEGATIVE (Negative); Influenza B Molecular NEGATIVE (Negative)
[2018-08-17] MEDS ORDERED: Levalbuterol 1.25MG/0.5ML NEB INH ONE (10:35)
[2018-08-17 10:41] LABS: Albumin 3.2 g/dL (3.2-5.2); Albumin/Globulin Ratio 0.9 (1-3); BUN/Creatinine Ratio 35.5 (8-20); C Reactive Protein 53.57 mg/L (<8.01); Calcium 8.3 mg/dL (8.6-10.3); EGFR African American 60.2 (>60); EGFR Non-African American 49.7 (>60); Globulin 3.4 g/dL (2-4); Potassium 4.9 mmol/L (3.5-5.0); Total Bilirubin 0.6 mg/dL (0.2-1.0); Total Protein 6.6 g/dL (6.4-8.9)
[2018-08-17 10:43] LABS: Troponin I 0.01 ng/mL (<0.04)
[2018-08-17] MEDS ORDERED: ED Piperacillin/Tazobac 3.375 3.375 GM/100 ML PREMIX.SET IVPB ONE (10:48)
[2018-08-17] MEDS ORDERED: Zosyn 3.375 GM IV - ED ONCE IVPB ONE ×2 (11:00)
[2018-08-17] MEDS ORDERED: NS 0.9% 1000 ML** 1,000 ML IV.FLUID IV ONE (11:04)
[2018-08-17] MEDS ORDERED: Vancomycin(*) 1,000 MG VIAL IVPB SCH (12:00)
[2018-08-17] MEDS ORDERED: Vancomycin(*) 1,250 MG IV x ONCE IVPB ONE ×2 (12:00)
[2018-08-17] MEDS ORDERED: Furosemide IV* 10 MG/ML 2 ML VIAL (20 MG) IV ONE (12:59)
[2018-08-17] MEDS ORDERED: Acetaminophen TAB* 325 MG PO PRN (13:01)
[2018-08-17] MEDS ORDERED: Albuterol 2.5 MG/3 ML NEB.SOL* (0.083%) INH PRN (13:01)
[2018-08-17] MEDS ORDERED: Albuterol inh POWDER (NF) 1 PUFF MDI INH PRN (13:01)
[2018-08-17] MEDS ORDERED: methylPREDNISolone SOD 40 MG* 1 ML VIAL IV ONE (13:10)
[2018-08-17] MEDS ORDERED: Albuterol HFA INHALER* 8 gm MDI INH SCH (14:00)
[2018-08-17] MEDS ORDERED: Piperacillin/Tazobac ADVAN(*) 3.375 GM in NS 0.9% 100 ML* 100 ML IVPB ONE (14:34)
[2018-08-17] MEDS ORDERED: Vancomycin(*) 0 MG in NS 0.9% 250 ML* 250 ML IVPB SCH (15:00)
[2018-08-17] MEDS ORDERED: Zosyn per Pharmacy* NOTE FOLLOW UP SCH (15:00)
[2018-08-17] MEDS ORDERED: Furosemide IV* 100 MG in NS 0.9% 100 ML* 90 ML IV SCH (15:00)
[2018-08-17 15:20] LABS: Influenza A Molecular NEGATIVE (Negative); Influenza B Molecular NEGATIVE (Negative)
[2018-08-17] MEDS: Albuterol/Ipratropium NEB.SOL* Albuterol 2.5 MG/Ipratropium 0.5 MG 3 ML INH SCH ×2 (15:35→20:04)
[2018-08-17] MEDS ORDERED: Vancomycin per Pharmacy* NOTE FOLLOW UP PRN (15:48)
[2018-08-17] MEDS: ZOSYN 3.375 GM Q8H per EXTENDED INFUSION IVPB SCH ×4 (15:50→23:46)
--- NOTE | 2018-08-17 17:20 | HP ---
HISTORY AND PHYSICAL: DATE OF ADMISSION: 08/17/18 CHIEF COMPLAINT: Shortness of breath. HISTORY OF PRESENT ILLNESS: Ms. Agarwal is a 78-year-old female with a past medical history of severe COPD, dementia, congestive heart failure, coronary artery disease, chronic kidney disease, hypertension, type 2 diabetes, atrial fibrillation, cholelithiasis, history of pancreatitis, history of diastolic congestive heart failure, and history of CVA. She is currently a resident of a skilled nursing and was transferred to the emergency department at [facility] for further evaluation of increasing shortness of breath and hypoxemia. In the emergency room, she was noted to be extremely short of breath and hypoxemic. She was placed on BiPAP therapy and also started on treatment for COPD exacerbation and antibiotic therapy for pneumonia. At the time of my evaluation, she was on BiPAP therapy. She was drowsy; however , arousable. She was moving all 4 extremities. She was unable to provide any additional history. She did answer some questions to yes and no such as if she was having any pain or if she was in any discomfort and she reported not being in pain or in any discomfort at the time of my evaluation. PAST MEDICAL HISTORY: As stated above. MEDICATIONS: Her current medications include: 1. Acetaminophen. 2. Albuterol neb treatments. 3. Cholecalciferol. 4. Insulin. 5. Furosemide. ALLERGIES: No known drug allergies. FAMILY HISTORY: Positive for cardiac disease. SOCIAL HISTORY: There is no history of alcohol abuse or substance abuse. REVIEW OF SYSTEMS: I was unable to obtain review of systems due to the patient' s condition and being on BiPAP. PHYSICAL EXAMINATION GENERAL: Elderly female. She appeared to be in respiratory distress. She was lethargic. She did open her eyes to voice command. HEENT: Mucous membranes were pink. RESPIRATORY: The patient had good breath sounds bilaterally. There was no wheezing or crackles. CARDIOVASCULAR: S1, S2, regular. No murmurs were appreciated. ABDOMEN: Soft, nontender, obese. EXTREMITIES: She had bilateral +3 pitting edema. No cyanosis noted. NEUROLOGIC: She was lethargic; however, aroused to voice command and stimulus and moved all 4 extremities. There were no focal deficits noted otherwise. DIAGNOSTIC STUDIES/LAB DATA: WBC count 11.1, hemoglobin of 12.2, hematocrit of 38, platelets of 231. Blood gas at the time of ER visit was 7.27, pCO2 of 61 , and pO2 of 75. Repeat blood gas while on BiPAP / was 7.19, pCO2 of 66, and pO2 of 103. Sodium 132, potassium 4.9, chloride 99, bicarb of 26, anion gap of 7, BUN of 38, creatinine of 0.7, glucose of 238. Bilirubin of 0.6. AST, ALT , and alk phos within normal limits. Troponin 0.01. BNP was 830. Albumin 3.2. She is negative for rapid influenza A and B. Diagnostic workup including chest x-ray revealed bilateral interstitial and airspace processes consistent with possibly pneumonia versus congestive heart failure. Electrocardiogram completed in the emergency department, atrial fibrillation with a heart rate of 115, QTc was 500. No acute changes were noted. ASSESSMENT AND PLAN: Ms. Agarwal is a 78-year-old female with extensive medical history including chronic obstructive pulmonary disease and congestive heart failure. In addition, she also has a history of chronic kidney disease. Findings on the chest x-ray and clinical findings are consistent with pulmonary edema, with possible but less likely pneumonia. Pneumonia cannot be completely excluded with start on anitbiotics and wait for culture results. The patient will be initiated on a Lasix infusion. Continue cardiac meds from home if her blood pressure will tolerate. Continue anticoagulation therapy for atrial fibrillation. She is currently on dabigatran 150 mg b.i.d. The patient will be observed in the ICU with BiPAP therapy. Repeat ABG is pending. I have adjusted the BiPAP settings to 20/8. Her tidal volumes are 500 to 600. She is tolerating it well. Her oxygen saturations are being maintained. DISPOSITION: The patient is DNR/DNI as per the MOLST form. Overall prognosis is poor given the multitude of comorbidities. [id number]/[id number] #: [id number] [facility]
[2018-08-17] MEDS: Donepezil TAB* 5 MG PO SCH (21:52)
[2018-08-17] MEDS: Carvedilol TAB* 6.25 MG PO SCH (21:52)
[2018-08-17] MEDS: CMC:Dabigatran CAP(NF) 150 MG CAP PO SCH (21:52)
[2018-08-18] MEDS: Albuterol/Ipratropium NEB.SOL* Albuterol 2.5 MG/Ipratropium 0.5 MG 3 ML INH SCH ×4 (00:08→19:12)
[2018-08-18] MEDS: Vancomycin(*) 1,000 MG in NS 0.9% 250 ML* 250 ML IVPB SCH ×2 (01:16→12:57)
[2018-08-18 06:06] LABS: ABS Basophils 0 10^3/ul (0-0.2); ABS Eosinophils 0 10^3/ul (0-0.6); ABS Lymphocytes 0.4 10^3/ul (1.0-4.8); ABS Monocytes 0.5 10^3/ul (0-0.8); ABS Neutrophils 6.5 10^3/ul (1.5-7.7); ABS Nucleated RBC 0 10^3/ul; Eosinophil % 0 %; Hematocrit 38 % (35-47); Hemoglobin 12.4 g/dl (12.0-16.0); Lymphocyte % 5.7 %; Mean Corpuscular HGB Conc 32 g/dl (31-36); Mean Corpuscular Hemoglobin 29 pg (27-31); Mean Corpuscular Volume 90 fL (80-97); Mean Platelet Volume 9.4 fL (7.4-10.4); Nucleated Red Blood Cells % 0; Platelet Count 234 10^3/ul (150-450); Red Blood Count 4.27 10^6/ul (4.00-5.40); Red Cell Distribution Width 15 % (10.5-15); White Blood Count 7.4 10^3/ul (3.5-10.8)
[2018-08-18 06:22] LABS: BUN/Creatinine Ratio 32.2 (8-20); Calcium 7.5 mg/dL (8.6-10.3); EGFR African American 52.2 (>60); EGFR Non-African American 43.1 (>60); Potassium 4.3 mmol/L (3.5-5.0)
[2018-08-18] MEDS ORDERED: Spiriva Inhaler DEVICE* 1 EACH DEVICE INH ONE (09:00)
[2018-08-18] MEDS ORDERED: Furosemide TAB* 20 MG PO SCH (09:00)
[2018-08-18] MEDS: ZOSYN 3.375 GM Q8H per EXTENDED INFUSION IVPB SCH ×6 (09:11→23:05)
[2018-08-18] MEDS: amLODIPine TAB* 5 MG PO SCH (09:11)
[2018-08-18] MEDS: Carvedilol TAB* 6.25 MG PO SCH ×2 (09:11→21:04)
[2018-08-18] MEDS: Sertraline* 50 MG TAB PO SCH (09:12)
[2018-08-18] MEDS: CMC:Dabigatran CAP(NF) 150 MG CAP PO SCH ×2 (09:12→21:04)
[2018-08-18] MEDS: Tiotropium CAP.INH* CAP.INH/18 MCG (USE ORDER SET !) INH SCH (09:34)
[2018-08-18] MEDS ORDERED: Ondansetron INJ* 2 MG/ML VIAL IV PRN (09:57)
--- NOTE | 2018-08-18 10:55 | PN ---
Date of Service: 08/18/18 Critical Care Services: over night on lasix infusion doing well and fells better off the BIPAP in am Vital Signs: Temp Pulse Resp BP SpO2 FiO2 98.4 F 89 18 137/77 91 100 08/18/18 10:01 08/18/18 10:01 08/18/18 10:01 08/18/18 10:01 08/18/18 10:01 08/18 08:00 Physical Exam: Gen: obese female HEENT:pink and moist Lungs:decrease bc b/l Cardiac: s1 s2 Abdomen: obease NT ND +BS Extremities: ++ edema Neuro: awake and alert Fluid Balance (Past 24 Hours): I= O= Net Intake & Output 08/16/18 08/17/18 08/18/18 08/19/18 06:59 06:59 06:59 06:59 Intake Total 5139.2 Output Total 3485 350 Balance 1654.2 -350 Weight 255 lb 1.197 oz Intake: IV Fluids 3685 NS (0.9%) 56 Vanco 250 zosyn 209 Medicated IV 54.2 lasix 54.2 Oral 1400 Output: Urine 875 [place] 2610 350 Other: Date of Last Bowel 08/18/18 Movement # Bowel Movements 1 Estimated Stool Amount Large ADLs: Meal Record Start: 08/17/18 13: 35 Freq: ,,18 Status: Active Protocol: Acetaminophen (Tylenol Tab*) 650 mg PO Q6H PRN PRN Reason: PAIN Albuterol (Ventolin 2.5 Mg/3 Ml Neb.Amy*) 2.5 mg INH Q6H PRN PRN Reason: SHORTNESS OF BREATH Albuterol/Ipratropium (Duoneb (Albuterol 2.5 Mg/Ipratropium 0.5 Mg)) 1 neb INH [id number] AWAKE [facility] Last Admin: 08/18/18 07:56 Dose: 1 neb Amlodipine Besylate (Norvasc Tab*) 5 mg PO DAILY [facility] Last Admin: 08/18/18 09:11 Dose: 5 mg Carvedilol (Coreg Tab*) 12.5 mg PO BID [facility] Last Admin: 08/18/18 09:11 Dose: 12.5 mg Dabigatran (Pradaxa Cap(Nf)) 150 mg PO BID [facility] Last Admin: 08/18/18 09:12 Dose: 150 mg Donepezil HCl (Aricept Tab*) 10 mg PO BEDTIME [facility] Last Admin: 08/17/18 21:52 Dose: 10 mg Heparin Sodium (Porcine) (Heparin Flush Picc/Ml/Cvc(*)) 1 - 3 ml FLUSH 0600, 1800 [facility]; Protocol Last Admin: 08/18/18 05:49 Dose: 1 ml Furosemide 100 mg/ Sodium (Chloride) 100 mls @ 2 mls/hr IV .(as INITIAL RATE) [facility]; Protocol Last Admin: 08/17/18 15:20 Dose: 2 mls/hr Piperacillin Sod/Tazobactam (Sod 3.375 gm/ Sodium Chloride) 100 mls @ 25 mls/ hr IVPB Q8H [facility] Last Admin: 08/18/18 09:11 Dose: 25 mls/hr Vancomycin HCl 1,000 mg/ (Sodium Chloride) 250 mls @ 166.667 mls/hr IVPB Q12H [facility] Last Admin: 08/18/18 01:16 Dose: 166.667 mls/hr Pharmacy Consult (Zosyn Per Pharmacy*) 1 note FOLLOW UP .ZOSYN PER PHARMACY [facility] Pharmacy Consult (Vancomycin Per Pharmacy*) 1 note FOLLOW UP . PRN PRN Reason: PER PROTOCOL Pharmacy Profile Note (Vancomycin Trough Check) 1 note FOLLOW UP 1230 ONE Stop: 08/19/18 12:31 Sertraline HCl (Zoloft*) 50 mg PO DAILY [facility] Last Admin: 08/18/18 09:12 Dose: 50 mg Tiotropium [place] (Spiriva Cap.Inh*) 1 cap INH DAILY [facility] Last Admin: 08/18/18 09:34 Dose: 1 cap Labs: Laboratory Results - last 24 hr 08/17/18 08/17/18 08/17/18 10:10 10:11 10:38 WBC RBC Hgb Hct MCV MCH MCHC RDW Plt Count MPV Neut % (Auto) Lymph % (Auto) [place] % (Auto) Eos % (Auto) Baso % (Auto) Absolute Neuts (auto) Absolute Lymphs (auto) Absolute Monos (auto) Absolute Eos (auto) Absolute Basos (auto) Absolute Nucleated RBC Nucleated RBC % Patient Temperature ABG pH ABG pH (Temp Correct) ABG pCO2 ABG pCO2 (Temp Corrct ABG pO2 ABG pO2 (Temp Correct ABG HCO3 ABG O2 Saturation ABG Base Excess Respiration Rate O2 Delivery Device Ventilator Type Vent Mode FiO2 Inspiratory Time PEEP Pressure Support Pressure Control EPAP IPAP BiPAP Sodium 132 L Potassium 4.9 Chloride 99 L Carbon Dioxide 26 Anion Gap 7 BUN 38 H Creatinine 1.07 H Est GFR ( Amer) 60.2 Est GFR (Non-Af Amer) 49.7 BUN/Creatinine Ratio 35.5 H Glucose 238 H Lactic Acid 0.7 Calcium 8.3 L Total Bilirubin 0.60 AST 29 ALT 35 Alkaline Phosphatase 84 Troponin I 0.01 C-Reactive Protein 53.57 H B-Natriuretic Peptide 830 H Total Protein 6.6 Albumin 3.2 Globulin 3.4 Albumin/Globulin Ratio 0.9 L Influenza A (Rapid) Influenza B (Rapid) 08/17/18 08/17/18 08/17/18 10:56 14:01 15:08 WBC RBC Hgb Hct MCV MCH MCHC RDW Plt Count MPV Neut % (Auto) Lymph % (Auto) [place] % (Auto) Eos % (Auto) Baso % (Auto) Absolute Neuts (auto) Absolute Lymphs (auto) Absolute Monos (auto) Absolute Eos (auto) Absolute Basos (auto) Absolute Nucleated RBC Nucleated RBC % Patient Temperature Not Reportable Not Reportable ABG pH 7.27 L 7.19 L* ABG pH (Temp Correct) Not Reportable Not Reportable ABG pCO2 61 H 66 H ABG pCO2 (Temp Corrct Not Reportable Not Reportable ABG pO2 75 L 103 H ABG pO2 (Temp Correct Not Reportable Not Reportable ABG HCO3 24.6 21.6 ABG O2 Saturation 97.5 99.9 H ABG Base Excess -0.3 -4.3 L Respiration Rate Not Reportable Not Reportable O2 Delivery Device Bipap Ventilator Type Not Reportable Not Reportable Vent Mode Not Reportable Not Reportable FiO2 60 60 Inspiratory Time 1.0 Not Reportable PEEP Not Reportable Not Reportable Pressure Support Not Reportable Not Reportable Pressure Control Not Reportable Not Reportable EPAP 8 8 IPAP 16 16 BiPAP 16/8 Not Reportable Sodium Potassium Chloride Carbon Dioxide Anion Gap BUN Creatinine Est GFR ( Amer) Est GFR (Non-Af Amer) BUN/Creatinine Ratio Glucose Lactic Acid Calcium Total Bilirubin AST ALT Alkaline Phosphatase Troponin I C-Reactive Protein B-Natriuretic Peptide Total Protein Albumin Globulin Albumin/Globulin Ratio Influenza A (Rapid) Negative Influenza B (Rapid) Negative 08/17/18 08/18/18 08/18/18 17:49 05:56 05:56 WBC 7.4 RBC 4.27 Hgb 12.4 Hct 38 MCV 90 MCH 29 MCHC 32 RDW 15 Plt Count 234 MPV 9.4 Neut % (Auto) 87.5 Lymph % (Auto) 5.7 [place] % (Auto) 6.7 Eos % (Auto) 0 Baso % (Auto) 0.1 Absolute Neuts (auto) 6.5 Absolute Lymphs (auto) 0.4 L Absolute Monos (auto) 0.5 Absolute Eos (auto) 0 Absolute Basos (auto) 0 Absolute Nucleated RBC 0 Nucleated RBC % 0 Patient Temperature Not Reportable ABG pH 7.25 L ABG pH (Temp Correct) Not Reportable ABG pCO2 58 H ABG pCO2 (Temp Corrct Not Reportable ABG pO2 76 L ABG pO2 (Temp Correct Not Reportable ABG HCO3 22.7 ABG O2 Saturation 96.7 ABG Base Excess -2.8 L Respiration Rate Not Reportable O2 Delivery Device bipap Ventilator Type Not Reportable Vent Mode Not Reportable FiO2 60 Inspiratory Time Not Reportable PEEP Not Reportable Pressure Support Not Reportable Pressure Control Not Reportable EPAP [address] Sodium 137 Potassium 4.3 Chloride 103 Carbon Dioxide 28 Anion Gap 6 BUN 39 H Creatinine 1.21 H Est GFR ( Amer) 52.2 Est GFR (Non-Af Amer) 43.1 BUN/Creatinine Ratio 32.2 H Glucose 210 H Lactic Acid Calcium 7.5 L Total Bilirubin AST ALT Alkaline Phosphatase Troponin I C-Reactive Protein B-Natriuretic Peptide Total Protein Albumin Globulin Albumin/Globulin Ratio Influenza A (Rapid) Influenza B (Rapid) 08/18/18 07:50 WBC RBC Hgb Hct MCV MCH MCHC RDW Plt Count MPV Neut % (Auto) Lymph % (Auto) [place] % (Auto) Eos % (Auto) Baso % (Auto) Absolute Neuts (auto) Absolute Lymphs (auto) Absolute Monos (auto) Absolute Eos (auto) Absolute Basos (auto) Absolute Nucleated RBC Nucleated RBC % Patient Temperature Not Reportable ABG pH 7.31 L ABG pH (Temp Correct) Not Reportable ABG pCO2 50 H ABG pCO2 (Temp Corrct Not Reportable ABG pO2 76 L ABG pO2 (Temp Correct Not Reportable ABG HCO3 23.5 ABG O2 Saturation 97.3 ABG Base Excess -1.7 Respiration Rate Not Reportable O2 Delivery Device Ventilator Type Not Reportable Vent Mode Not Reportable FiO2 100 Inspiratory Time Not Reportable PEEP Not Reportable Pressure Support Not Reportable Pressure Control Not Reportable EPAP Not Reportable IPAP Not Reportable BiPAP Not Reportable Sodium Potassium Chloride Carbon Dioxide Anion Gap BUN Creatinine Est GFR ( Amer) Est GFR (Non-Af Amer) BUN/Creatinine Ratio Glucose Lactic Acid Calcium Total Bilirubin AST ALT Alkaline Phosphatase Troponin I C-Reactive Protein B-Natriuretic Peptide Total Protein Albumin Globulin Albumin/Globulin Ratio Influenza A (Rapid) Influenza B (Rapid) Studies: cxr no sig change consisted with Pul edema and possible airspace disease Nutrition: clear liquid diet started Impression: Pt is a 78 year old female with a complex medical history, including CHF, morbid obesity, DM, COPD, Afib, CKD and HTN she presents with increase in sob. Finding on the CXR are consist with pul edema. Resp Con't lasix infusion , repeat BMP pending renal function remains stable con't copd meds, currently not on IV steroids con't zosyn and vanco until cult results [facility] con't home meds and anitcoagulation with dabigatran Plan: Critical Care Time:
[2018-08-18 12:15] LABS: BUN/Creatinine Ratio 31.1 (8-20); Calcium 7.3 mg/dL (8.6-10.3); EGFR African American 47.2 (>60); Magnesium 2.1 mg/dL (1.9-2.7); Potassium 4.1 mmol/L (3.5-5.0)
[2018-08-18] MEDS: Furosemide IV* 100 MG in NS 0.9% 100 ML* 90 ML IV SCH (12:53)
[2018-08-18 20:37] LABS: BUN/Creatinine Ratio 29.3 (8-20); Calcium 7.2 mg/dL (8.6-10.3); EGFR African American 41.7 (>60); EGFR Non-African American 34.5 (>60); Magnesium 2.1 mg/dL (1.9-2.7); Potassium 3.9 mmol/L (3.5-5.0)
[2018-08-18] MEDS: Donepezil TAB* 5 MG PO SCH (21:04)
[2018-08-19] MEDS: Albuterol/Ipratropium NEB.SOL* Albuterol 2.5 MG/Ipratropium 0.5 MG 3 ML INH SCH ×4 (00:59→18:10)
[2018-08-19 02:31] LABS: BUN/Creatinine Ratio 29.2 (8-20); Calcium 7.1 mg/dL (8.6-10.3); EGFR African American 42.7 (>60); EGFR Non-African American 35.3 (>60); Magnesium 2.1 mg/dL (1.9-2.7); Potassium 3.5 mmol/L (3.5-5.0)
[2018-08-19] MEDS: Vancomycin(*) 1,000 MG in NS 0.9% 250 ML* 250 ML IVPB SCH (03:13)
[2018-08-19] MEDS ORDERED: KCL 10 MEQ/50 ML IVPREMIX* 10 MEQ/50 ML BAG IV ONE (03:24)
[2018-08-19] MEDS ORDERED: Lidocaine 2% JELLY* 6 ML JELLY TOPICAL PRN (05:07)
[2018-08-19 06:49] LABS: ABS Basophils 0 10^3/ul (0-0.2); ABS Eosinophils 0 10^3/ul (0-0.6); ABS Lymphocytes 0.8 10^3/ul (1.0-4.8); ABS Monocytes 0.6 10^3/ul (0-0.8); ABS Neutrophils 5.9 10^3/ul (1.5-7.7); ABS Nucleated RBC 0 10^3/ul; Eosinophil % 0.1 %; Hematocrit 37 % (35-47); Hemoglobin 11.8 g/dl (12.0-16.0); Lymphocyte % 10.7 %; Mean Corpuscular HGB Conc 32 g/dl (31-36); Mean Corpuscular Hemoglobin 29 pg (27-31); Mean Corpuscular Volume 90 fL (80-97); Nucleated Red Blood Cells % 0.1; Platelet Count 229 10^3/ul (150-450); Red Blood Count 4.06 10^6/ul (4.00-5.40); Red Cell Distribution Width 16 % (10.5-15); White Blood Count 7.3 10^3/ul (3.5-10.8)
[2018-08-19] MEDS: Tiotropium CAP.INH* CAP.INH/18 MCG (USE ORDER SET !) INH SCH (07:55)
[2018-08-19] MEDS: amLODIPine TAB* 5 MG PO SCH (08:54)
[2018-08-19] MEDS: Sertraline* 50 MG TAB PO SCH (08:54)
[2018-08-19] MEDS: Carvedilol TAB* 6.25 MG PO SCH ×2 (08:54→20:43)
[2018-08-19] MEDS: KCL 20 MEQ/100 ML IVPREMIX* 20 MEQ/100 ML BAG IV SCH ×3 (08:57→23:59)
[2018-08-19] MEDS: ZOSYN 3.375 GM Q8H per EXTENDED INFUSION IVPB SCH ×6 (09:22→23:12)
[2018-08-19] MEDS: CMC:Dabigatran CAP(NF) 150 MG CAP PO SCH ×3 (10:40→20:42)
[2018-08-19 11:25] LABS: EGFR African American 43.1 (>60); EGFR Non-African American 35.6 (>60)
--- NOTE | 2018-08-19 11:29 | PN ---
Date of Service: 08/19/18 Critical Care Services: overnight she has done well con't to show an improve response to lasix infusion and anitbiotic therapy. Vital Signs: Temp Pulse Resp BP SpO2 FiO2 97.9 F 105 27 128/99 97 60 08/19/18 11:01 08/19/18 11:01 08/19/18 11:01 08/19/18 11:00 08/19/18 11:01 08/19 08:00 Physical Exam: Gen: obese female in no distress HEENT: mm pink Lungs: decrease bs b/l Cardiac: S1 S2 noM Abdomen: obese NT nD Extremities: ++edema Neuro: awake and moving all extremities Fluid Balance (Past 24 Hours): I= O= Net Intake & Output 08/17/18 08/18/18 08/19/18 08/20/18 06:59 06:59 06:59 06:59 Intake Total 5139.2 1042.7 390 Output Total 3485 2930 605 Balance 1654.2 -1887.3 -215 Weight 255 lb 1.197 oz 250 lb 0.067 oz Intake: IV Fluids 3685 101.1 NS (0.9%) 56 101.1 Vanco 250 zosyn 209 IVPB 866 Vanco 540 zosyn 326 Medicated IV 54.2 75.6 lasix 54.2 75.6 Oral 1400 390 Output: Urine 875 75 Ga[place] 2610 2855 605 Other: Date of Last Bowel 08/18/18 Movement # Bowel Movements 1 Estimated Stool Amount Large Small Labs: Laboratory Results - last 24 hr 08/18/18 08/18/18 08/19/18 11:53 20:11 02:07 WBC RBC Hgb Hct MCV MCH MCHC RDW Plt Count MPV Neut % (Auto) Lymph % (Auto) [place] % (Auto) Eos % (Auto) Baso % (Auto) Absolute Neuts (auto) Absolute Lymphs (auto) Absolute Monos (auto) Absolute Eos (auto) Absolute Basos (auto) Absolute Nucleated RBC Nucleated RBC % Sodium 139 139 141 Potassium 4.1 3.9 3.5 Chloride 103 104 104 Carbon Dioxide 29 29 32 Anion Gap 7 6 5 BUN 41 H 43 H 42 H Creatinine 1.32 H 1.47 H 1.44 H Est GFR ( Amer) 47.2 41.7 42.7 Est GFR (Non-Af Amer) 39.0 34.5 35.3 BUN/Creatinine Ratio 31.1 H 29.3 H 29.2 H Glucose 196 H 296 H 206 H Calcium 7.3 L 7.2 L 7.1 L Magnesium 2.1 2.1 2.1 08/19/18 08/19/18 06:22 09:36 WBC 7.3 RBC 4.06 Hgb 11.8 L Hct 37 MCV 90 MCH 29 MCHC 32 RDW 16 H Plt Count 229 MPV 9.0 Neut % (Auto) 80.7 Lymph % (Auto) 10.7 [place] % (Auto) 8.1 Eos % (Auto) 0.1 Baso % (Auto) 0.4 Absolute Neuts (auto) 5.9 Absolute Lymphs (auto) 0.8 L Absolute Monos (auto) 0.6 Absolute Eos (auto) 0 Absolute Basos (auto) 0 Absolute Nucleated RBC 0 Nucleated RBC % 0.1 Sodium TNP Potassium TNP Chloride TNP Carbon Dioxide TNP Anion Gap TNP BUN TNP Creatinine TNP Est GFR ( Amer) TNP Est GFR (Non-Af Amer) TNP BUN/Creatinine Ratio TNP Glucose TNP Calcium TNP Magnesium TNP Nutrition: tolerating PO diet Impression: Pt is a 78 year old female with a complex medical history, including CHF, morbid obesity, DM, COPD, Afib, CKD and HTN she presents with increase in sob. Finding on the CXR are consist with pul edema. Resp Con't lasix infusion , repeat BMP pending renal function remains stable con't copd meds broncho dilators, currently not on IV steroids con't zosyn D/c VAnco cult negative for MRSA [facility] con't home meds, carvedilol, norvasc, and anitcoagulation with dabigatran lasix infusion for CHF Sertraline for depression Plan: Critical Care Time:
[2018-08-19] MEDS ORDERED: Vancomycin Trough Check NOTE FOLLOW UP ONE (12:30)
[2018-08-19] MEDS: Furosemide IV* 100 MG in NS 0.9% 100 ML* 90 ML IV SCH (12:59)
[2018-08-19] MEDS: Insulin LISPRO* 1 UNITS UNIT SUBCUT SCH (20:41)
[2018-08-19] MEDS: Donepezil TAB* 5 MG PO SCH (20:43)
[2018-08-19 20:55] LABS: BUN/Creatinine Ratio 23.4 (8-20); Calcium 6.6 mg/dL (8.6-10.3); EGFR African American 43.8 (>60); EGFR Non-African American 36.2 (>60); Magnesium 1.8 mg/dL (1.9-2.7); Potassium 3.4 mmol/L (3.5-5.0)
[2018-08-20] MEDS ORDERED: Haloperidol INJ IV/IM* 5 MG/ML AMP IV SLOW PU ONE (00:53)
[2018-08-20] MEDS: Albuterol/Ipratropium NEB.SOL* Albuterol 2.5 MG/Ipratropium 0.5 MG 3 ML INH SCH ×4 (01:09→19:19)
[2018-08-20] MEDS: KCL 20 MEQ/100 ML IVPREMIX* 20 MEQ/100 ML BAG IV SCH (02:23)
[2018-08-20] MEDS: Furosemide IV* 100 MG in NS 0.9% 100 ML* 90 ML IV SCH (05:05)
[2018-08-20 05:54] LABS: ABS Basophils 0 10^3/ul (0-0.2); ABS Eosinophils 0.1 10^3/ul (0-0.6); ABS Lymphocytes 1.1 10^3/ul (1.0-4.8); ABS Monocytes 0.6 10^3/ul (0-0.8); ABS Neutrophils 6.4 10^3/ul (1.5-7.7); ABS Nucleated RBC 0 10^3/ul; Hematocrit 37 % (35-47); Hemoglobin 12.4 g/dl (12.0-16.0); Lymphocyte % 13.1 %; Mean Corpuscular HGB Conc 33 g/dl (31-36); Mean Corpuscular Hemoglobin 30 pg (27-31); Mean Corpuscular Volume 90 fL (80-97); Mean Platelet Volume 8.7 fL (7.4-10.4); Nucleated Red Blood Cells % 0.1; Platelet Count 261 10^3/ul (150-450); Red Blood Count 4.17 10^6/ul (4.00-5.40); Red Cell Distribution Width 15 % (10.5-15); White Blood Count 8.2 10^3/ul (3.5-10.8)
[2018-08-20] MEDS: ZOSYN 3.375 GM Q8H per EXTENDED INFUSION IVPB SCH ×6 (06:26→22:53)
[2018-08-20 08:14] LABS: ABS Basophils 0 10^3/ul (0-0.2); ABS Eosinophils 0.1 10^3/ul (0-0.6); ABS Monocytes 0.7 10^3/ul (0-0.8); ABS Neutrophils 7.7 10^3/ul (1.5-7.7); ABS Nucleated RBC 0 10^3/ul; Eosinophil % 0.9 %; Hematocrit 39 % (35-47); Hemoglobin 12.6 g/dl (12.0-16.0); Mean Corpuscular HGB Conc 33 g/dl (31-36); Mean Corpuscular Hemoglobin 29 pg (27-31); Mean Corpuscular Volume 90 fL (80-97); Mean Platelet Volume 8.9 fL (7.4-10.4); Nucleated Red Blood Cells % 0; Platelet Count 284 10^3/ul (150-450); Red Cell Distribution Width 16 % (10.5-15); White Blood Count 9.5 10^3/ul (3.5-10.8)
[2018-08-20 08:16] LABS: BUN/Creatinine Ratio 19.9 (8-20); Calcium 7.2 mg/dL (8.6-10.3); EGFR African American 45.6 (>60); EGFR Non-African American 37.7 (>60); Magnesium 1.9 mg/dL (1.9-2.7); Potassium 3.5 mmol/L (3.5-5.0)
[2018-08-20] MEDS: amLODIPine TAB* 5 MG PO SCH (08:40)
[2018-08-20] MEDS: Furosemide TAB* 40 MG PO SCH (08:40)
[2018-08-20] MEDS: Carvedilol TAB* 6.25 MG PO SCH ×2 (08:40→20:20)
--- NOTE | 2018-08-20 08:40 | PN ---
Date of Service: 08/20/18 Critical Care Services: overnight doing well no complaints Vital Signs: Temp Pulse Resp BP SpO2 FiO2 98.1 F 83 23 150/96 94 60 08/20/18 06:01 08/20/18 06:01 08/20/18 06:28 08/20/18 06:00 08/20/18 06:01 08/20 04:50 Physical Exam: Gen: obese female in no distress HEENT: mm pink and moist Lungs: good airentry Cardiac: s1 s2 rrr Abdomen: soft nt Extremities: +edeam Neuro: awake and moving all ext Fluid Balance (Past 24 Hours): I= O= Net Intake & Output 08/18/18 08/19/18 08/20/18 08/21/18 06:59 06:59 06:59 06:59 Intake Total 5139.2 1042.7 1183 Output Total 3485 2930 3525 150 Balance 1654.2 -1887.3 -2342 -150 Weight 255 lb 1.197 oz 250 lb 0.067 oz 250 lb 3.594 oz Intake: IV Fluids 3685 101.1 413 NS (0.9%) 56 101.1 413 Vanco 250 zosyn 209 IVPB 866 205 Vanco 540 zosyn 326 205 Medicated IV 54.2 75.6 55 lasix 54.2 75.6 55 Oral 1400 510 Output: Urine 875 75 [place] 2610 2855 3525 150 Other: Date of Last Bowel 08/18/18 Movement # Bowel Movements 1 Estimated Stool Amount Large Small Acetaminophen (Tylenol Tab*) 650 mg PO Q6H PRN PRN Reason: PAIN Last Admin: 08/19/18 03:36 Dose: 650 mg Albuterol (Ventolin 2.5 Mg/3 Ml Neb.Amy*) 2.5 mg INH Q6H PRN PRN Reason: SHORTNESS OF BREATH Albuterol/Ipratropium (Duoneb (Albuterol 2.5 Mg/Ipratropium 0.5 Mg)) 1 neb INH [id number] AWAKE [facility] Last Admin: 08/20/18 01:09 Dose: 1 neb Amlodipine Besylate (Norvasc Tab*) 5 mg PO DAILY [facility] Last Admin: 08/19/18 08:54 Dose: 5 mg Carvedilol (Coreg Tab*) 12.5 mg PO BID [facility] Last Admin: 08/19/18 20:43 Dose: 12.5 mg Dabigatran (Pradaxa Cap(Nf)) 150 mg PO BID [facility] Last Admin: 08/19/18 20:42 Dose: 150 mg Donepezil HCl (Aricept Tab*) 10 mg PO BEDTIME [facility] Last Admin: 08/19/18 20:43 Dose: 10 mg Furosemide (Lasix Tab*) 40 mg PO DAILY [facility] Heparin Sodium (Porcine) (Heparin Flush Picc/Ml/Cvc(*)) 1 - 3 ml FLUSH 0600, 1800 [facility]; Protocol Last Admin: 08/20/18 06:26 Dose: Not Given Piperacillin Sod/Tazobactam (Sod 3.375 gm/ Sodium Chloride) 100 mls @ 25 mls/ hr IVPB Q8H [facility] Last Admin: 08/20/18 06:26 Dose: 25 mls/hr Insulin Human Lispro (Humalog*) 0 units SUBCUT ACHS [facility]; Protocol Last Admin: 08/19/18 20:41 Dose: 9 unit Lidocaine HCl (Lidocaine 2% Jelly*) 1 applic TOPICAL Q2H PRN PRN Reason: Incontinence dermatitis/pain Last Admin: 08/19/18 14:57 Dose: 1 applic Pharmacy Consult (Zosyn Per Pharmacy*) 1 note FOLLOW UP .ZOSYN PER PHARMACY [facility] Sertraline HCl (Zoloft*) 50 mg PO DAILY [facility] Last Admin: 08/19/18 08:54 Dose: 50 mg Tiotropium [place] (Spiriva Cap.Inh*) 1 cap INH DAILY [facility] Last Admin: 08/19/18 07:55 Dose: 1 cap Labs: Laboratory Results - last 24 hr 08/19/18 08/19/18 08/19/18 09:36 10:27 12:54 WBC RBC Hgb Hct MCV MCH MCHC RDW Plt Count MPV Neut % (Auto) Lymph % (Auto) [place] % (Auto) Eos % (Auto) Baso % (Auto) Absolute Neuts (auto) Absolute Lymphs (auto) Absolute Monos (auto) Absolute Eos (auto) Absolute Basos (auto) Absolute Nucleated RBC Nucleated RBC % Sodium TNP 141 Potassium TNP 4.0 Chloride TNP 103 Carbon Dioxide TNP 32 Anion Gap TNP 6 BUN TNP 40 H Creatinine TNP 1.43 H Est GFR ( Amer) TNP 43.1 Est GFR (Non-Af Amer) TNP 35.6 BUN/Creatinine Ratio TNP 28.0 H Glucose TNP 257 H POC Glucose (mg/dL) Calcium TNP 7.0 L Magnesium TNP 2.0 Vancomycin Trough 22.6 08/19/18 08/19/18 08/19/18 17:47 20:15 20:30 WBC RBC Hgb Hct MCV MCH MCHC RDW Plt Count MPV Neut % (Auto) Lymph % (Auto) [place] % (Auto) Eos % (Auto) Baso % (Auto) Absolute Neuts (auto) Absolute Lymphs (auto) Absolute Monos (auto) Absolute Eos (auto) Absolute Basos (auto) Absolute Nucleated RBC Nucleated RBC % Sodium 144 Potassium 3.4 L Chloride 102 Carbon Dioxide 33 H Anion Gap 9 BUN 33 H Creatinine 1.41 H Est GFR ( Amer) 43.8 Est GFR (Non-Af Amer) 36.2 BUN/Creatinine Ratio 23.4 H Glucose 270 H POC Glucose (mg/dL) 232 H 291 H Calcium 6.6 L Magnesium 1.8 L Vancomycin Trough 08/20/18 08/20/18 08/20/18 05:45 07:45 07:45 WBC 8.2 9.5 RBC 4.17 4.30 Hgb 12.4 12.6 Hct 37 39 MCV 90 90 MCH 30 29 MCHC 33 33 RDW 15 16 H Plt Count 261 284 MPV 8.7 8.9 Neut % (Auto) 77.8 80.3 Lymph % (Auto) 13.1 11.0 [place] % (Auto) 7.6 7.5 Eos % (Auto) 1.0 0.9 Baso % (Auto) 0.5 0.3 Absolute Neuts (auto) 6.4 7.7 Absolute Lymphs (auto) 1.1 1.0 Absolute Monos (auto) 0.6 0.7 Absolute Eos (auto) 0.1 0.1 Absolute Basos (auto) 0 0 Absolute Nucleated RBC 0 0 Nucleated RBC % 0.1 0 Sodium 142 Potassium 3.5 Chloride 99 L Carbon Dioxide 37 H Anion Gap 6 BUN 27 H Creatinine 1.36 H Est GFR ( Amer) 45.6 Est GFR (Non-Af Amer) 37.7 BUN/Creatinine Ratio 19.9 Glucose 134 H POC Glucose (mg/dL) Calcium 7.2 L Magnesium 1.9 Vancomycin Trough Impression: Pt is a 78 year old female with a complex medical history, including CHF, morbid obesity, DM, COPD, Afib, CKD and HTN she presents with increase in sob. Finding on the CXR are consist with pul edema. Resp off lasix infusion will start lasix 40mg PO as per home dose, repeat BMP in am COPD con't copd meds broncho dilators con't zosyn for a total on 7 days ( stated on 08/17) D/c VAnco cult negative for MRSA She con't to use the BIPAP overnight with good response. She likely has BRISA or OHS and would benefit from night BIPAP. Will request overnight [facility] con't home meds, carvedilol, norvasc, and anitcoagulation with dabigatran lasix infusion for CHF Sertraline for depression DM Insulin slinding scale Chronic renal insufficency: renal function remains stable Plan: Critical Care Time:
[2018-08-20] MEDS: Sertraline* 50 MG TAB PO SCH (08:41)
[2018-08-20] MEDS: Insulin LISPRO* 1 UNITS UNIT SUBCUT SCH ×4 (08:41→20:20)
[2018-08-20] MEDS: CMC:Dabigatran CAP(NF) 150 MG CAP PO SCH ×2 (08:41→20:20)
[2018-08-20] MEDS ORDERED: Ondansetron INJ* 2 MG/ML VIAL ONE (09:27)
[2018-08-20] MEDS ORDERED: Ondansetron INJ* 2 MG/ML VIAL IV PRN (09:47)
[2018-08-20] MEDS ORDERED: KCL 20 MEQ/100 ML IVPREMIX* 20 MEQ/100 ML BAG IV SCH (10:00)
[2018-08-20] MEDS ORDERED: Ondansetron INJ* 2 MG/ML VIAL IV ONE (10:35)
[2018-08-20] MEDS: Tiotropium CAP.INH* CAP.INH/18 MCG (USE ORDER SET !) INH SCH (13:10)
[2018-08-20] MEDS: Donepezil TAB* 5 MG PO SCH (20:20)
[2018-08-21] MEDS: Albuterol/Ipratropium NEB.SOL* Albuterol 2.5 MG/Ipratropium 0.5 MG 3 ML INH SCH ×4 (00:59→19:04)
[2018-08-21] MEDS ORDERED: Haloperidol INJ IV/IM* 5 MG/ML AMP IV SLOW PU PRN (03:10)
[2018-08-21] MEDS ORDERED: traZODone TAB* 50 MG TAB PO ONE (03:10)
[2018-08-21] MEDS: ZOSYN 3.375 GM Q8H per EXTENDED INFUSION IVPB SCH ×6 (06:01→22:55)
[2018-08-21 06:22] LABS: ABS Basophils 0 10^3/ul (0-0.2); ABS Eosinophils 0.1 10^3/ul (0-0.6); ABS Monocytes 0.6 10^3/ul (0-0.8); ABS Neutrophils 6.3 10^3/ul (1.5-7.7); ABS Nucleated RBC 0 10^3/ul; Eosinophil % 0.7 %; Hematocrit 38 % (35-47); Hemoglobin 12.2 g/dl (12.0-16.0); Lymphocyte % 12.7 %; Mean Corpuscular HGB Conc 32 g/dl (31-36); Mean Corpuscular Hemoglobin 29 pg (27-31); Mean Corpuscular Volume 90 fL (80-97); Mean Platelet Volume 8.8 fL (7.4-10.4); Nucleated Red Blood Cells % 0; Platelet Count 244 10^3/ul (150-450); Red Blood Count 4.24 10^6/ul (4.00-5.40); Red Cell Distribution Width 16 % (10.5-15); White Blood Count 8.1 10^3/ul (3.5-10.8)
[2018-08-21 06:33] LABS: BUN/Creatinine Ratio 21.6 (8-20); Calcium 7.7 mg/dL (8.6-10.3); EGFR African American 50.3 (>60); EGFR Non-African American 41.6 (>60); Potassium 3.6 mmol/L (3.5-5.0)
[2018-08-21] MEDS: Tiotropium CAP.INH* CAP.INH/18 MCG (USE ORDER SET !) INH SCH (07:51)
[2018-08-21] MEDS: Carvedilol TAB* 6.25 MG PO SCH (08:09)
[2018-08-21] MEDS: Furosemide TAB* 40 MG PO SCH (08:09)
[2018-08-21] MEDS: amLODIPine TAB* 5 MG PO SCH (08:09)
[2018-08-21] MEDS: Sertraline* 50 MG TAB PO SCH (08:09)
[2018-08-21] MEDS: Insulin LISPRO* 1 UNITS UNIT SUBCUT SCH ×3 (08:10→18:56)
[2018-08-21] MEDS: CMC:Dabigatran CAP(NF) 150 MG CAP PO SCH ×2 (08:11→21:12)
--- NOTE | 2018-08-21 09:05 | PN ---
Date of Service: 08/21/18 Critical Care Services: overnight no sig change she con't to require bipap and supplemental oxygen Vital Signs: Temp Pulse Resp BP SpO2 FiO2 99.1 F 117 21 156/99 92 60 08/21/18 08:10 08/21/18 08:10 08/21/18 08:10 08/21/18 08:10 08/21/18 08:10 08/21 00:59 Physical Exam: Gen: obese female in no sig distress HEENT: MM pink and moist Lungs: good airentry b/l Cardiac: S1S2 irregular Abdomen: soft NT ND +BS Extremities: ++ edema Neuro: following all commands and moving all extremities Fluid Balance (Past 24 Hours): I= O= Net Intake & Output 08/19/18 08/20/18 08/21/18 08/22/18 06:59 06:59 06:59 06:59 Intake Total 1042.7 1183 1168 Output Total 2930 3525 2085 Balance -1887.3 -2342 -917 Weight 250 lb 0.067 oz 250 lb 3.594 oz 242 lb 11.663 oz Intake: IV Fluids 101.1 413 275 NS (0.9%) 101.1 413 275 IVPB 866 205 633 Vanco 540 potassium 320 zosyn 326 205 313 Medicated IV 75.6 55 lasix 75.6 55 Oral 510 260 Output: MILTON #1 20 MILTON #2 15 Urine 75 Gaona 2855 3525 2050 Other: Estimated Stool Amount Small Labs: Laboratory Results - last 24 hr 08/20/18 08/20/18 08/20/18 12:59 18:06 20:12 WBC RBC Hgb Hct MCV MCH MCHC RDW Plt Count MPV Neut % (Auto) Lymph % (Auto) [place] % (Auto) Eos % (Auto) Baso % (Auto) Absolute Neuts (auto) Absolute Lymphs (auto) Absolute Monos (auto) Absolute Eos (auto) Absolute Basos (auto) Absolute Nucleated RBC Nucleated RBC % Sodium Potassium Chloride Carbon Dioxide Anion Gap BUN Creatinine Est GFR ( Amer) Est GFR (Non-Af Amer) BUN/Creatinine Ratio Glucose POC Glucose (mg/dL) 133 H 228 H 271 H Calcium Magnesium 08/21/18 08/21/18 08/21/18 06:00 06:00 08:04 WBC 8.1 RBC 4.24 Hgb 12.2 Hct 38 MCV 90 MCH 29 MCHC 32 RDW 16 H Plt Count 244 MPV 8.8 Neut % (Auto) 78.5 Lymph % (Auto) 12.7 [place] % (Auto) 7.6 Eos % (Auto) 0.7 Baso % (Auto) 0.5 Absolute Neuts (auto) 6.3 Absolute Lymphs (auto) 1.0 Absolute Monos (auto) 0.6 Absolute Eos (auto) 0.1 Absolute Basos (auto) 0 Absolute Nucleated RBC 0 Nucleated RBC % 0 Sodium 144 Potassium 3.6 Chloride 101 Carbon Dioxide 39 H Anion Gap 4 BUN 27 H Creatinine 1.25 H Est GFR ( Amer) 50.3 Est GFR (Non-Af Amer) 41.6 BUN/Creatinine Ratio 21.6 H Glucose 186 H POC Glucose (mg/dL) 193 H Calcium 7.7 L Magnesium 2.0 Impression: Pt is a 78 year old female with a complex medical history, including CHF, morbid obesity, DM, COPD, Afib, CKD and HTN she presents with increase in sob. Finding on the CXR are consist with pul edema. Resp Increase in o2 requirements, repeat cxr pending unlikely PE since she is on dabigatran con't BIPAP and supplement oxygen will consider restarting lasix infusion NPO for now for swallow evaluation COPD con't copd meds broncho dilators con't zosyn for a total on 7 days ( stated on 08/17) D/c VAnco cult negative for MRSA She con't to use the BIPAP overnight with good response. She likely has BRISA or OHS and would benefit from night BIPAP. Will request overnight [facility] con't home meds, carvedilol, norvasc, and anitcoagulation with dabigatran lasix infusion for CHF Increase the dose of carvedilol due to high HR Sertraline for depression DM Insulin slinding scale Chronic renal insufficency: renal function remains stable hypokalemia will replace the K+ Plan: Critical Care Time:
[2018-08-21] MEDS ORDERED: Carvedilol TAB* 6.25 MG ONE (10:05)
[2018-08-21] MEDS: Carvedilol TAB* 25 MG PO SCH ×3 (10:09→21:12)
[2018-08-21] MEDS: KCL 20 MEQ/100 ML IVPREMIX* 20 MEQ/100 ML BAG IV SCH ×2 (10:15→13:51)
[2018-08-21] MEDS ORDERED: Metoclopramide IV* 5 MG/ML 2 ML VIAL IV SLOW PU ONE (10:19)
[2018-08-21] MEDS ORDERED: Metoclopramide IV* 5 MG/ML 2 ML VIAL ONE (10:22)
[2018-08-21] MEDS ORDERED: Insulin LISPRO* 1 UNITS UNIT SUBCUT ONE ×2 (13:58→13:59)
[2018-08-21] MEDS: Furosemide IV* 10 MG/ML 2 ML VIAL (20 MG) IV SCH ×2 (16:59→21:36)
[2018-08-21] MEDS: Donepezil TAB* 5 MG PO SCH (21:12)
[2018-08-21 23:32] LABS: BUN/Creatinine Ratio 19.1 (8-20); Calcium 7.9 mg/dL (8.6-10.3); EGFR African American 55.4 (>60); EGFR Non-African American 45.8 (>60); Potassium 3.5 mmol/L (3.5-5.0)
[2018-08-22] MEDS: Albuterol/Ipratropium NEB.SOL* Albuterol 2.5 MG/Ipratropium 0.5 MG 3 ML INH SCH ×3 (01:14→14:01)
[2018-08-22] MEDS: Insulin LISPRO* 1 UNITS UNIT SUBCUT SCH ×5 (01:24→21:47)
[2018-08-22 05:32] LABS: ABS Basophils 0 10^3/ul (0-0.2); ABS Eosinophils 0.1 10^3/ul (0-0.6); ABS Lymphocytes 1.2 10^3/ul (1.0-4.8); ABS Monocytes 0.6 10^3/ul (0-0.8); ABS Neutrophils 8.4 10^3/ul (1.5-7.7); ABS Nucleated RBC 0 10^3/ul; Eosinophil % 1.1 %; Hematocrit 40 % (35-47); Hemoglobin 12.9 g/dl (12.0-16.0); Lymphocyte % 11.8 %; Mean Corpuscular HGB Conc 33 g/dl (31-36); Mean Corpuscular Hemoglobin 29 pg (27-31); Mean Corpuscular Volume 90 fL (80-97); Mean Platelet Volume 8.7 fL (7.4-10.4); Nucleated Red Blood Cells % 0.1; Platelet Count 267 10^3/ul (150-450); Red Blood Count 4.43 10^6/ul (4.00-5.40); Red Cell Distribution Width 15 % (10.5-15); White Blood Count 10.4 10^3/ul (3.5-10.8)
[2018-08-22 05:51] LABS: BUN/Creatinine Ratio 18.6 (8-20); EGFR African American 56.5 (>60); EGFR Non-African American 46.7 (>60); Potassium 3.6 mmol/L (3.5-5.0)
[2018-08-22] MEDS: Tiotropium CAP.INH* CAP.INH/18 MCG (USE ORDER SET !) INH SCH (07:26)
[2018-08-22] MEDS: ZOSYN 3.375 GM Q8H per EXTENDED INFUSION IVPB SCH ×6 (07:44→23:36)
[2018-08-22] MEDS: Furosemide IV* 10 MG/ML 2 ML VIAL (20 MG) IV SCH ×2 (08:15→14:10)
[2018-08-22] MEDS: CMC:Dabigatran CAP(NF) 150 MG CAP PO SCH ×2 (08:15→21:44)
[2018-08-22] MEDS: amLODIPine TAB* 5 MG PO SCH (08:15)
[2018-08-22] MEDS: Carvedilol TAB* 25 MG PO SCH ×2 (08:15→21:46)
[2018-08-22] MEDS: Sertraline* 50 MG TAB PO SCH (08:15)
[2018-08-22] MEDS ORDERED: Diphenoxylat/Atrop 2.5-0.025M* 1 TAB PO PRN (15:08)
[2018-08-22] MEDS ORDERED: Dextrose 50% Syringe 50 ML* 25 GM/50 ML SYRINGE IV PUSH PRN (15:14)
--- NOTE | 2018-08-22 16:17 | PN ---
Date of Service: 08/22/18 Vital Signs: Temp Pulse Resp BP SpO2 FiO2 99.3 F 98 36 112/70 91 60 08/22/18 15:01 08/22/18 15:01 08/22/18 15:01 08/22/18 15:01 08/22/18 15:01 08/21 00:59 Physical Exam: Gen: Alert, confused, NAD HEENT: Atraumatic, normocephalic Lungs: Clear bilaterally, good air entry, rales at bases Cardiac: afib, controlled, no ectopy Abdomen: Soft, non-tender, pos BS x4 Extremities: no clubbing, cyanosis, +bipedal edema Neuro: Alert, confused at baseline, able to make needs known Fluid Balance (Past 24 Hours): I= O= Net Intake & Output 08/20/18 08/21/18 08/22/18 08/23/18 06:59 06:59 06:59 06:59 Intake Total 1183 1168 805 133 Output Total 3525 2085 2845 1085 [facility] -2342 -917 -2040 -952 Weight 250 lb 3.594 oz 242 lb 11.663 oz 237 lb 7.005 oz Intake: IV Fluids 413 275 40 23 NS (0.9%) 413 275 40 23 IVPB 205 633 525 110 potassium 320 215 zosyn 205 313 310 110 Medicated IV 55 lasix 55 Oral 510 260 240 Output: MILTON #1 20 MILTON #2 15 Gaona 3525 2050 2845 1085 ADLs: Meal Record Start: 08/17/18 13: 35 Freq: 09,13,18 Status: Inactive Protocol: Created 08/17/18 13:35 System (Rec: 08/17/18 13:35 System ICU-C25) Document 08/18/18 19:34 [id number] (Rec: 08/18/18 19:35 [id number] ICU-C12) Document 08/19/18 09:00 ZCZ3038 (Rec: 08/19/18 11:03 EEA1384 ICU-C16) Document 08/19/18 13:00 AGZ7788 (Rec: 08/19/18 13:23 PBD1325 ICU-C16) Document 08/19/18 18:00 UQO0872 (Rec: 08/19/18 18:06 ALJ9018 ICU-C16) Document 08/20/18 09:00 GDV9981 (Rec: 08/20/18 11:04 FPB2226 ICU-C16) Document 08/20/18 13:00 FZY9861 (Rec: 08/20/18 15:33 SDF1087 ICU-C16) Document 08/20/18 18:00 DKO2680 (Rec: 08/20/18 18:23 IVV2533 ICU-M33) Document 08/21/18 09:00 DEZ7327 (Rec: 08/21/18 11:35 KUK9614 ICU-C16) Document 08/21/18 13:00 RQF4020 (Rec: 08/21/18 17:25 CBS3616 ICU-C16) Document 08/21/18 18:00 RKJ9612 (Rec: 08/21/18 19:11 QQU5548 ICU-C16) Document 08/22/18 09:00 NWC1054 (Rec: 08/22/18 09:52 TPE7993 ICU-C15) ADLs: Meal Record Start: 08/22/18 14: 14 Freq: DAILY@0900,1400,1800 Status: Active Protocol: Created 08/22/18 14:14 [id number] (Rec: 08/22/18 14:14 AJN7982 ICU-M33) Intake and Output Start: 08/17/18 09: 53 Freq: Status: Active Protocol: Created 08/17/18 09:53 System (Rec: 08/17/18 09:53 System EDRM-C11) Intake and Output Start: 08/17/18 13: 35 Freq: Q1HR Status: Inactive Protocol: Created 08/17/18 13:35 System (Rec: 08/17/18 13:35 System ICU-C25) Document 08/17/18 15:00 NCD9997 (Rec: 08/17/18 15:47 AHO6558 ICU-C07) Document 08/17/18 15:53 SDU7671 (Rec: 08/17/18 15:53 MDA0286 ICU-M31) Document 08/17/18 17:00 CWK4472 (Rec: 08/17/18 18:44 MMW1516 ICU-C07) Document 08/17/18 18:00 QCZ2239 (Rec: 08/17/18 18:44 PDP1274 ICU-C07) Document 08/17/18 19:05 RFW7512 (Rec: 08/17/18 19:59 IPA5551 ICU-C08) Document 08/17/18 19:59 IZX5400 (Rec: 08/17/18 19:59 QVA7215 ICU-C08) Document 08/17/18 21:10 PYH3645 (Rec: 08/17/18 21:11 WIA0618 ICU-C25) Document 08/17/18 21:42 QOP5869 (Rec: 08/18/18 05:12 GCU5756 ICU-C16) Document 08/17/18 21:42 MZD5639 (Rec: 08/17/18 21:43 LBG3743 ICU-C11) Document 08/17/18 22:03 XLN4965 (Rec: 08/17/18 22:03 SEU6888 ICU-C11) Document 08/17/18 22:07 UYQ1684 (Rec: 08/17/18 22:07 XNO5860 ICU-M33) Document 08/17/18 23:48 EAK9550 (Rec: 08/17/18 23:48 TNS1917 ICU-M33) Document 08/18/18 01:15 PUP1287 (Rec: 08/18/18 01:15 PLB4965 ICU-M33) Document 08/18/18 02:00 ROU5201 (Rec: 08/18/18 03:31 AEX5540 ICU-C16) Document 08/18/18 04:00 RVH1175 (Rec: 08/18/18 04:48 PAV0948 ICU-C16) Document 08/18/18 05:00 DIG3333 (Rec: 08/18/18 05:03 AFH1098 ICU-C16) Document 08/18/18 05:55 KWF4954 (Rec: 08/18/18 05:55 QLM5661 ICU-M33) Document 08/18/18 06:42 QQY8507 (Rec: 08/18/18 06:44 BYW9150 ICU-M33) Document 08/18/18 08:00 ENR8063 (Rec: 08/18/18 09:18 TES0417 ICU-C10) Document 08/18/18 09:00 QBP2587 (Rec: 08/18/18 09:18 ZJQ7061 ICU-C10) Document 08/18/18 10:00 UIY7963 (Rec: 08/18/18 10:32 BAU5787 ICU-M33) Document 08/18/18 11:00 DOY8953 (Rec: 08/18/18 11:15 VXM8339 ICU-C10) Document 08/18/18 12:00 TQW6056 (Rec: 08/18/18 13:39 ZKR7457 ICU-C10) Document 08/18/18 13:00 NXV6129 (Rec: 08/18/18 15:21 KQJ3620 ICU-C10) Document 08/18/18 14:00 EOQ4659 (Rec: 08/18/18 15:21 VQF6907 ICU-C10) Document 08/18/18 15:00 ZOM9520 (Rec: 08/18/18 15:21 XOH4706 ICU-C10) Document 08/18/18 16:00 QKM3560 (Rec: 08/18/18 16:31 WZE6028 ICU-C10) Document 08/18/18 17:00 ZRP6203 (Rec: 08/18/18 18:43 TIR0852 ICU-C10) Document 08/18/18 18:00 MVJ1274 (Rec: 08/18/18 18:43 RCJ9264 ICU-C10) Document 08/18/18 19:34 GOO2169 (Rec: 08/18/18 19:34 NHI2737 ICU-C12) Document 08/18/18 21:05 OEE7074 (Rec: 08/18/18 21:21 OXK9615 ICU-C12) Document 08/18/18 22:04 HVK1869 (Rec: 08/18/18 22:06 HIU5949 ICU-C12) Document 08/18/18 23:11 MVV2510 (Rec: 08/18/18 23:12 KPX1422 ICU-C12) Document 08/19/18 00:02 IJP7510 (Rec: 08/19/18 00:05 QNQ0244 ICU-C12) Document 08/19/18 01:03 LEX5895 (Rec: 08/19/18 01:03 XBK4519 ICU-C12) Document 08/19/18 02:00 LGG7970 (Rec: 08/19/18 02:03 MJL1046 ICU-C12) Document 08/19/18 03:01 DQU0756 (Rec: 08/19/18 03:01 DLW5341 ICU-C12) Document 08/19/18 04:05 TJY4941 (Rec: 08/19/18 04:05 GBW9339 ICU-C12) Document 08/19/18 05:50 ZVG2985 (Rec: 08/19/18 06:11 PSG0493 ICU-C12) Document 08/19/18 07:00 LLE9570 (Rec: 08/19/18 07:35 KPM3509 ICU-C16) Document 08/19/18 08:46 RKK8195 (Rec: 08/19/18 08:46 ENN2845 ICU-C16) Document 08/19/18 09:00 EVD1049 (Rec: 08/19/18 09:38 VAQ6102 ICU-M33) Document 08/19/18 10:00 VBR7750 (Rec: 08/19/18 10:28 RDK1114 ICU-M33) Document 08/19/18 11:00 TYD8642 (Rec: 08/19/18 11:30 GXM9595 ICU-C16) Document 08/19/18 12:00 XUD9063 (Rec: 08/19/18 12:57 ZOK1237 ICU-C16) Document 08/19/18 13:00 EWE6815 (Rec: 08/19/18 13:40 WPL1947 ICU-M33) Document 08/19/18 14:00 XQY2550 (Rec: 08/19/18 15:02 OPK7894 ICU-C16) Document 08/19/18 15:00 VBR8236 (Rec: 08/19/18 17:08 PKR9667 ICU-M33) Document 08/19/18 16:00 EXM5095 (Rec: 08/19/18 17:08 ZKI6345 ICU-M33) Document 08/19/18 17:00 IQU2103 (Rec: 08/19/18 17:08 GMQ6272 ICU-M33) Document 08/19/18 18:00 BBD0662 (Rec: 08/19/18 18:06 GPC8569 ICU-C16) Document 08/19/18 19:00 LPG5537 (Rec: 08/19/18 19:03 JSC1145 ICU-M33) Document 08/19/18 20:00 YBU9588 (Rec: 08/19/18 23:02 PXV1463 ICU-C16) Document 08/19/18 21:00 OTZ9595 (Rec: 08/19/18 23:02 MJR5587 ICU-C16) Document 08/19/18 22:00 VFB3303 (Rec: 08/19/18 23:02 UHD0599 ICU-C16) Document 08/19/18 23:00 RHM6167 (Rec: 08/19/18 23:02 JMO1543 ICU-C16) Document 08/20/18 00:00 YTK7364 (Rec: 08/20/18 00:01 EFQ8373 ICU-M33) Document 08/20/18 01:00 DQD9930 (Rec: 08/20/18 01:38 NTM1547 ICU-C16) Document 08/20/18 02:00 ZJJ7131 (Rec: 08/20/18 02:26 KCV0149 ICU-M33) Document 08/20/18 03:00 YJB4433 (Rec: 08/20/18 04:36 QAL0635 ICU-M33) Document 08/20/18 04:00 UDN2666 (Rec: 08/20/18 04:36 THV5976 ICU-M33) Document 08/20/18 05:00 UYT9605 (Rec: 08/20/18 05:08 HQJ9145 ICU-M33) Document 08/20/18 06:00 WCY4242 (Rec: 08/20/18 06:28 YAG0028 ICU-M33) Document 08/20/18 06:28 DSC0043 (Rec: 08/20/18 06:28 YYA6541 ICU-M33) Document 08/20/18 07:00 PWC3057 (Rec: 08/20/18 07:13 NVK6292 ICU-M33) Document 08/20/18 08:00 IYB7154 (Rec: 08/20/18 09:15 HXG9898 ICU-C16) Document 08/20/18 08:28 JPG1122 (Rec: 08/20/18 08:28 DPZ4745 ICU-M33) Document 08/20/18 09:00 DJA5443 (Rec: 08/20/18 09:09 CQB0268 ICU-M33) Document 08/20/18 10:00 DPP6986 (Rec: 08/20/18 11:00 WKZ8234 ICU-M33) Document 08/20/18 11:00 MAB5642 (Rec: 08/20/18 11:00 WBW3796 ICU-M33) Document 08/20/18 13:00 DMK9815 (Rec: 08/20/18 13:00 WVG8529 ICU-M33) Document 08/20/18 14:00 TJY3678 (Rec: 08/20/18 15:39 QVC7741 ICU-M33) Document 08/20/18 15:00 FIX6925 (Rec: 08/20/18 15:39 UAI1895 ICU-M33) Document 08/20/18 16:00 IRI1104 (Rec: 08/20/18 18:21 ODH0402 ICU-M33) Document 08/20/18 17:00 VTJ6036 (Rec: 08/20/18 18:22 QUD7941 ICU-M33) Document 08/20/18 18:00 DTY1315 (Rec: 08/20/18 18:22 XHO7540 ICU-M33) Document 08/20/18 19:00 DDE5015 (Rec: 08/20/18 20:05 JCI6272 ICU-L03) Document 08/20/18 20:00 UUS7081 (Rec: 08/20/18 22:54 SVB0807 ICU-L03) Document 08/20/18 21:00 FPW7061 (Rec: 08/20/18 22:54 LGH5210 ICU-L03) Document 08/20/18 22:00 LKR9825 (Rec: 08/20/18 22:54 FWM3400 ICU-L03) Document 08/20/18 22:55 LZW9697 (Rec: 08/20/18 22:55 PKS2824 ICU-L03) Document 08/20/18 22:55 BFQ8987 (Rec: 08/20/18 22:55 AUG9583 ICU-L03) Document 08/21/18 00:00 WTD8464 (Rec: 08/21/18 02:50 PYL7243 ICU-L03) Document 08/21/18 01:00 OQL2315 (Rec: 08/21/18 02:50 CYB6223 ICU-L03) Document 08/21/18 02:00 GYM7598 (Rec: 08/21/18 02:50 TKY5301 ICU-L03) Document 08/21/18 03:00 GVE4772 (Rec: 08/21/18 04:10 POW7780 ICU-L03) Document 08/21/18 04:00 QPO8710 (Rec: 08/21/18 04:10 DWX4135 ICU-L03) Document 08/21/18 05:00 WFU5814 (Rec: 08/21/18 06:19 CNQ1826 ICU-L03) Document 08/21/18 06:00 NCQ7326 (Rec: 08/21/18 06:19 TME8651 ICU-L03) Document 08/21/18 07:00 NIA6826 (Rec: 08/21/18 11:17 VZU7040 ICU-C16) Document 08/21/18 08:00 INB4266 (Rec: 08/21/18 11:17 QXR2828 ICU-C16) Document 08/21/18 09:00 NKX1727 (Rec: 08/21/18 11:17 CCQ7582 ICU-C16) Document 08/21/18 10:00 KWJ5589 (Rec: 08/21/18 11:19 JZZ4331 ICU-C16) Document 08/21/18 11:00 GSH1913 (Rec: 08/21/18 11:19 SVX0422 ICU-C16) Document 08/21/18 12:00 AWY9694 (Rec: 08/21/18 13:10 PWC8963 ICU-C16) Document 08/21/18 13:00 NUA3345 (Rec: 08/21/18 13:10 QWE4258 ICU-C16) Document 08/21/18 14:00 RRI9886 (Rec: 08/21/18 17:26 RDD7037 ICU-C16) Document 08/21/18 15:00 ZKG3045 (Rec: 08/21/18 17:27 RTH6052 ICU-C16) Document 08/21/18 16:00 TXV2969 (Rec: 08/21/18 17:27 ARA8907 ICU-C16) Document 08/21/18 17:00 LOH3850 (Rec: 08/21/18 17:27 QQB3226 ICU-C16) Document 08/21/18 18:50 XVR5866 (Rec: 08/21/18 18:50 DKB4560 ICU-C16) Document 08/21/18 21:42 KYO4431 (Rec: 08/21/18 21:42 PPK7412 ICU-C16) Document 08/21/18 22:58 CCL5949 (Rec: 08/21/18 23:00 DRT6061 ICU-M33) Document 08/22/18 00:00 AZX7596 (Rec: 08/22/18 01:09 XCD9018 ICU-C16) Document 08/22/18 01:00 LVD0837 (Rec: 08/22/18 01:19 FDR1454 ICU-M33) Document 08/22/18 02:00 ZZS2408 (Rec: 08/22/18 02:07 MNT5802 ICU-C16) Document 08/22/18 02:56 QIO8791 (Rec: 08/22/18 02:56 ATH8135 ICU-C16) Document 08/22/18 05:00 ZIE7669 (Rec: 08/22/18 05:04 KWI1893 ICU-M33) Document 08/22/18 06:00 JJX0138 (Rec: 08/22/18 06:03 UHM8351 ICU-M33) Document 08/22/18 07:00 UZO9073 (Rec: 08/22/18 09:26 CPZ5483 ICU-M33) Document 08/22/18 08:00 ELG3653 (Rec: 08/22/18 09:26 TMI9532 ICU-M33) Document 08/22/18 09:00 UVC8820 (Rec: 08/22/18 09:26 LRC0210 ICU-M33) Document 08/22/18 09:47 JQB6962 (Rec: 08/22/18 09:47 UGH2570 ICU-C15) Document 08/22/18 10:00 ODF6299 (Rec: 08/22/18 10:40 FEX7904 ICU-C15) Document 08/22/18 11:00 EEH5100 (Rec: 08/22/18 12:08 WGN5477 ICU-C15) Document 08/22/18 12:00 ZPI2660 (Rec: 08/22/18 12:08 TZR0419 ICU-C15) Document 08/22/18 12:46 UCE3166 (Rec: 08/22/18 12:46 HXK8984 ICU-M33) Document 08/22/18 14:00 FXK5919 (Rec: 08/22/18 14:12 MJD7918 ICU-M33) Intake and Output Start: 08/22/18 14: 14 Freq: DAILY@0600,1400,2200 Status: Active Protocol: Created 08/22/18 14:14 ECU2086 (Rec: 08/22/18 14:14 EUH0000 ICU-M33) Labs: Laboratory Results - last 24 hr 08/21/18 08/21/18 08/22/18 18:38 23:00 01:18 WBC RBC Hgb Hct MCV MCH MCHC RDW Plt Count MPV Neut % (Auto) Lymph % (Auto) [place] % (Auto) Eos % (Auto) Baso % (Auto) Absolute Neuts (auto) Absolute Lymphs (auto) Absolute Monos (auto) Absolute Eos (auto) Absolute Basos (auto) Absolute Nucleated RBC Nucleated RBC % Sodium 144 Potassium 3.5 Chloride 99 L Carbon Dioxide 39 H Anion Gap 6 BUN 22 Creatinine 1.15 H Est GFR ( Amer) 55.4 Est GFR (Non-Af Amer) 45.8 BUN/Creatinine Ratio 19.1 Glucose 144 H POC Glucose (mg/dL) 167 H 165 H Calcium 7.9 L Magnesium 08/22/18 08/22/18 05:08 05:08 WBC 10.4 RBC 4.43 Hgb 12.9 Hct 40 MCV 90 MCH 29 MCHC 33 RDW 15 Plt Count 267 MPV 8.7 Neut % (Auto) 81.0 Lymph % (Auto) 11.8 [place] % (Auto) 5.8 Eos % (Auto) 1.1 Baso % (Auto) 0.3 Absolute Neuts (auto) 8.4 H Absolute Lymphs (auto) 1.2 Absolute Monos (auto) 0.6 Absolute Eos (auto) 0.1 Absolute Basos (auto) 0 Absolute Nucleated RBC 0 Nucleated RBC % 0.1 Sodium 145 Potassium 3.6 Chloride 98 L Carbon Dioxide 40 H Anion Gap 7 BUN 21 Creatinine 1.13 H Est GFR ( Amer) 56.5 Est GFR (Non-Af Amer) 46.7 BUN/Creatinine Ratio 18.6 Glucose 171 H POC Glucose (mg/dL) Calcium 8.0 L Magnesium 2.0 Studies: Patient Name: LEAH DIEGO Medical Record#: [id number] Ordering Physician: Julio Matthew MD Acct.#: [id number] : 1940 Age: 78 Sex: F Location: [facility] Exam Date: 08/21/18829 ADM Status: ADM IN Order Information: CHEST AP OR PORT Accession Number: [id number] CPT: 27047 INDICATION: Increased oxygen requirement COMPARISON: Most recent comparison chest x-rays dated August 18, 2018 TECHNIQUE: Single AP portable view of the chest was obtained. FINDINGS: Image quality is compromised due to the relative inferiority of a portable chest x-ray. There is a right-sided PICC line with the tip terminating at the SVC. Similar to the prior chest x-ray, there is a small degree of cardiomegaly. The pulmonary vasculature appears mildly engorged and indistinct. There is density obscuring the right lung base obscuring the right hemidiaphragm. Visualized bones are normal for the patient's age. IMPRESSION: In the correct clinical setting chest x-ray findings could be consistent with cardiogenic pulmonary edema with worsening aeration particularly of the right lung relative to the most recent August 18, 2018 chest x-ray. Alternatively the appearance of the right lung base could be due to worsening pneumonia. Nutrition: Consistent carb, mechanical ground, nectar thick Impression: This is a 78 year old female with a complex medical history, including CHF, morbid obesity, DM, COPD, Afib, CKD and HTN that presented with increase in sob. Findings on the CXR are consist with pulmonary edema/fluid overload. Plan: Plan: 1. Acute Hypoxic Respiratory Failure 2/2 Pulmonary Edema and CAP - Off Bipap since last night and tolerating oxymask, wean O2 as tolerated - Continue lasix daily - Strict I&Os, daily weights - Swallow eval completed, diet mods ordered - Repeat CXR as above, poss PNA RLL in addition to fluid overload - Continue Zosyn and pulmonary toilet 2. Hx of COPD with Likley PNA - Continue nebs and pulomonary toilet - Empiric zosyn day 11/25, vanco discontinued - Bipap for sleep only, likely OHS combined with BRISA 3. Acute Pulmonary Edema - Get ECHO tomorrow to eval LV function and valves - Continue lasix, off drip, change to 40mg IV daily - Titrate O2 - Contiue coreg 4. Atrial Fibrillation - Continue dabigatran and coreg - Continue tele 5. HTN - Continue coreg and norvasc 6. Dementia with Depression - Sertraline daily 7. CKD - Renal function at baseline, avoid nephrotoxic meds 8. DM - Lispro SS, accuchecks ACHS, CC diet Critical Care Time: 75 minutes Dispo: Downgrade to med-tele
[2018-08-22] MEDS: Donepezil TAB* 5 MG PO SCH (21:46)
[2018-08-23] MEDS: ZOSYN 3.375 GM Q8H per EXTENDED INFUSION IVPB SCH ×4 (07:36→15:33)
[2018-08-23] MEDS ORDERED: Furosemide IV* 10 MG/ML VIAL (40 MG) IV SCH (09:00)
[2018-08-23] MEDS: CMC:Dabigatran CAP(NF) 150 MG CAP PO SCH ×2 (09:06→22:31)
[2018-08-23] MEDS: amLODIPine TAB* 5 MG PO SCH (09:06)
[2018-08-23] MEDS: Insulin LISPRO* 1 UNITS UNIT SUBCUT SCH ×4 (09:06→22:36)
[2018-08-23] MEDS: Carvedilol TAB* 25 MG PO SCH ×2 (09:06→22:32)
[2018-08-23] MEDS: Sertraline* 50 MG TAB PO SCH (09:06)
[2018-08-23] MEDS: Tiotropium CAP.INH* CAP.INH/18 MCG (USE ORDER SET !) INH SCH (09:29)
[2018-08-23] MEDS ORDERED: Perflutren Lipid Microsphere* 3 ML VIAL ONE (10:21)
--- NOTE | 2018-08-23 12:39 | ECHO ---
Patient: LEAH DIEGO [facility] Rec#: [id number] : 1940 Date: 08/23/2018 Age: 78y Height: 165 cm / 65.0 in Weight: 107.7 kg / 237.4 lbs Sex: F BSA: 2.1 Room#: [facility] Admit Date#: 08/17/2018 Type: Inpatient Referring: Sharon Hernandez Reading: Alex Anaya MD Reading: Sharon Hernandez Human Resources Office Manager: Kavitha Suarez RN RDCS Transthoracic Echocardiogram Indication: Edema BP: 139/72 HR: 112 Rhythm: A-Fib Findings History: A. fib, CAD, CHF, HTN, DM, CVA, CKD, severe COPD, dementia, obesity Technical Comments: The study is technically limited due to poor acoustic windows. The study is technically limited due to the patient's history of COPD. The study was technically limited due to the patient's inability to lay in the left lateral decubitus position. Completed at 1120. Left Ventricle: The left ventricular chamber size is normal. Moderate concentric left ventricular hypertrophy is observed. There is global hypokinesis of the left ventricle with minor regional variation. There is mild to moderately decreased left ventricular systolic function. The estimated ejection fraction is 40-45%. Abnormal left ventricular diastolic function is observed. Left Atrium: The left atrium is mild to moderately dilated. Right Ventricle: The right ventricle is slightly dilated. The right ventricular global systolic function is mildly reduced. Right Atrium: The right atrium is not well visualized. Aortic Valve: The aortic valve leaflets are mildly thickened. There is no evidence of aortic regurgitation. There is no evidence of aortic stenosis. Mitral Valve: The mitral valve structure is not well visualized. Moderate mitral annular calcification present. The mitral valve leaflets are mildly thickened. There is a trace of mitral regurgitation. Tricuspid Valve: The tricuspid valve structure is not well visualized. There is trace tricuspid regurgitation. Unable to estimate the right ventricular systolic pressure. There is no tricuspid stenosis. Pulmonic Valve: The pulmonic valve structure is not well visualized. There is trace to mild pulmonic regurgitation. There is no pulmonic stenosis. Pericardium: There is no significant pericardial effusion. A pericardial fat pad is visualized. Aorta: There is no dilatation of the ascending aorta. The aortic arch is not well visualized. There is no dilation of the aortic root. Pulmonary Artery: The main pulmonary artery is not well visualized. Venous: The venous system is not well visualized. The inferior vena cava is not visualized. Contrast: Definity was used to optimize study. A total of 4 ml of diluted Definity was given IV. Conclusions There is global hypokinesis of the left ventricle with minor regional variation. There is mild to moderately decreased left ventricular systolic function. The estimated ejection fraction is 40-45%. The right ventricular global systolic function is mildly reduced. There is no evidence of aortic stenosis. There is a trace of mitral regurgitation. There is trace tricuspid regurgitation. Unable to estimate the right ventricular systolic pressure. There is no significant pericardial effusion. Compared to study of 07/03/13, the LV function is lower Was 55% now 40-45%. Measurements Name Value Normal Range RVIDd (AP) 2D 2.9 cm (0.9 - 2.6) IVSd (2D) 1.4 cm (0.6 - 1) LVPWd (2D) 1.4 cm (0.6 - 1) LVIDd (2D) 4.2 cm (3.6 - 5.4) Aortic Annulus 2.3 cm (1.4 - 2.6) Ao root diameter (2D) 3 cm (2.1 - 3.5) Ascending Ao 3.3 cm (2.1 - 3.4) LA dimension (AP) 2D 4.2 cm (2.3 - 3.8) LAd ISD 4CH 6.1 cm (2.9 - 5.3) LA ISD 4CH W 5 cm (2.5 - 4.5) Name Value Normal Range LA ESV BP (A/L) index 44.3 ml/m2 - Name Value Normal Range MV E-wave Vmax 1.2 m/sec - MV deceleration time 161 msec - LV septal e' Vmax 0.06 m/sec - LV lateral e' Vmax 0.06 m/sec - LV E:e' septal ratio 20 ratio - LV E:e' lateral ratio 20 ratio - Name Value Normal Range AV Vmax 1.1 m/sec - AV VTI 17.8 cm - AV peak gradient 5 mmHg - AV mean gradient 3 mmHg - LVOT Vmax 0.87 m/sec - LVOT VTI 12.6 cm - LVOT peak gradient 3 mmHg - LVOT mean gradient 1 mmHg - Name Value Normal Range MV Vmax 1.4 m/sec - MV VTI 25.1 cm - MV peak gradient 8 mmHg - MV mean gradient 3 mmHg - MV PHT 74 msec - MVA (PHT) 3 cm2 - Name Value Normal Range PV Vmax 0.6 m/sec -
--- NOTE | 2018-08-23 16:06 | PN ---
Subjective Date of Service: 08/23/18 Interval History: Somewhat less SOB today, little cough. No new c/o. Objective Active Medications: Acetaminophen (Tylenol Tab*) 650 mg PO Q6H PRN PRN Reason: PAIN Last Admin: 08/19/18 03:36 Dose: 650 mg Albuterol (Ventolin 2.5 Mg/3 Ml Neb.Amy*) 2.5 mg INH Q6H PRN PRN Reason: SHORTNESS OF BREATH Amlodipine Besylate (Norvasc Tab*) 5 mg PO DAILY [facility] Last Admin: 08/23/18 09:06 Dose: 5 mg Carvedilol (Coreg Tab*) 25 mg PO BID [facility] Last Admin: 08/23/18 09:06 Dose: 25 mg Dabigatran (Pradaxa Cap(Nf)) 150 mg PO BID [facility] Last Admin: 08/23/18 09:06 Dose: 150 mg Dextrose (D50w Syringe 50 Ml*) 12.5 gm IV PUSH .FOR FS < 60 - SS PRN PRN Reason: FS < 60 Diphenoxylate HCl/Atropine (Lomotil Tab*) 1 tab PO BID PRN PRN Reason: DIARRHEA Donepezil HCl (Aricept Tab*) 10 mg PO BEDTIME [facility] Last Admin: 08/22/18 21:46 Dose: 10 mg Furosemide (Lasix Iv*) 40 mg IV DAILY [facility] Last Admin: 08/23/18 09:06 Dose: 40 mg Heparin Sodium (Porcine) (Heparin Flush Picc/Ml/Cvc(*)) 1 - 3 ml FLUSH 0600, 1800 [facility]; Protocol Last Admin: 08/23/18 06:09 Dose: 3 ml Piperacillin Sod/Tazobactam (Sod 3.375 gm/ Sodium Chloride) 100 mls @ 25 mls/ hr IVPB Q8H [facility] Last Admin: 08/23/18 15:33 Dose: 25 mls/hr Insulin Human Lispro (Humalog*) 0 units SUBCUT FS ACHS ICU [facility]; Protocol Last Admin: 08/23/18 13:43 Dose: 12 units Lidocaine HCl (Lidocaine 2% Jelly*) 1 applic TOPICAL Q2H PRN PRN Reason: Incontinence dermatitis/pain Last Admin: 08/19/18 14:57 Dose: 1 applic Pharmacy Consult (Zosyn Per Pharmacy*) 1 note FOLLOW UP .ZOSYN PER PHARMACY [facility] Sertraline HCl (Zoloft*) 50 mg PO DAILY [facility] Last Admin: 08/23/18 09:06 Dose: 50 mg Tiotropium [place] (Spiriva Cap.Inh*) 1 cap INH DAILY [facility] Last Admin: 08/23/18 09:29 Dose: 1 cap Vital Signs - 8 hr 08/23/18 08/23/18 09:36 11:55 Temperature 97.8 F Pulse Rate 107 Respiratory 22 22 Rate Blood Pressure 123/81 (mmHg) O2 Sat by Pulse 94 Oximetry Oxygen Devices in Use Now: Nasal Cannula, OxyMask Appearance: Partly up in bed. Flat affect. Looks comfortable. Eyes: No Scleral Icterus Neck: NL Appearance and Movements; NL JVP, No Thyroid Enlargement, Masses Respiratory: Symmetrical Chest Expansion and Respiratory Effort, Clear to Auscultation, Clear to Percussion Cardiovascular: NL Sounds; No Murmurs; No JVD, RRR, No Edema, - Extremities: No Clubbing, Cyanosis, - - tr edema BL Skin: No Rash or Ulcers, No Nodules or Sclerosis Neurological: NL Sensation - Gave her age as 67, knows the name of this facility and the present month. Flat affect. GUTIERREZ. Result Diagrams: 08/22/18 05:08 08/22/18 05:08 Microbiology and Other Data: Microbiology 08/18/18 09:35 Aerobic Blood Culture - Final Blood Line No Growth Day 5 Anaerobic Blood Culture - Final No Growth Day 5 08/17/18 11:10 Aerobic Blood Culture - Final Blood Venous No Growth Day 5 Anaerobic Blood Culture - Final No Growth Day 5 08/17/18 10:38 Aerobic Blood Culture - Final Blood Venous No Growth Day 5 Anaerobic Blood Culture - Final No Growth Day 5 08/17/18 14:28 Nasal Screen MRSA (PCR) - Final Nasal Mrsa Not Detected 08/17/18 14:26 Influenza Types A,B Antigen - Final Nasopharyngeal Specimen received for Influenza A/B Molecular testing 08/17/18 10:07 Influenza Types A,B Antigen - Final Nasopharyngeal Specimen received for Influenza A/B Molecular testing Assess/Plan/Problems-Billing Assessment: - Patient Problems (1) CHF (congestive heart failure) Current Visit: No Status: Chronic Priority: Medium Code(s): I50.9 - HEART FAILURE, UNSPECIFIED SNOMED Code(s): 62625347 Comment: Acute on chronic heart failure, diastolic, improved. Start torsemide po 08/24. (2) Morbid obesity Current Visit: Yes Status: Acute Code(s): E66.01 - MORBID (SEVERE) OBESITY DUE TO EXCESS CALORIES SNOMED Code(s): 517363171 Comment: BMI 42.5. (3) Debility Current Visit: Yes Status: Acute Code(s): R53.81 - OTHER MALAISE SNOMED Code(s): 54257907 Comment: Poor ability with PT, likely will need to return to SNF care. (4) CKD (chronic kidney disease) Current Visit: No Status: Acute Code(s): N18.9 - CHRONIC KIDNEY DISEASE, UNSPECIFIED SNOMED Code(s): 452846333 Comment: Est GFR 46.7 08/23/18.
--- NOTE | 2018-08-23 16:12 | PN ---
Subjective Date of Service: 08/23/18 Interval History: see earlier note today Objective Active Medications: Acetaminophen (Tylenol Tab*) 650 mg PO Q6H PRN PRN Reason: PAIN Last Admin: 08/19/18 03:36 Dose: 650 mg Albuterol (Ventolin 2.5 Mg/3 Ml Neb.Amy*) 2.5 mg INH Q6H PRN PRN Reason: SHORTNESS OF BREATH Amlodipine Besylate (Norvasc Tab*) 5 mg PO DAILY [facility] Last Admin: 08/23/18 09:06 Dose: 5 mg Carvedilol (Coreg Tab*) 25 mg PO BID [facility] Last Admin: 08/23/18 09:06 Dose: 25 mg Dabigatran (Pradaxa Cap(Nf)) 150 mg PO BID [facility] Last Admin: 08/23/18 09:06 Dose: 150 mg Dextrose (D50w Syringe 50 Ml*) 12.5 gm IV PUSH .FOR FS < 60 - SS PRN PRN Reason: FS < 60 Diphenoxylate HCl/Atropine (Lomotil Tab*) 1 tab PO BID PRN PRN Reason: DIARRHEA Donepezil HCl (Aricept Tab*) 10 mg PO BEDTIME [facility] Last Admin: 08/22/18 21:46 Dose: 10 mg Heparin Sodium (Porcine) (Heparin Flush Picc/Ml/Cvc(*)) 1 - 3 ml FLUSH 0600, 1800 [facility]; Protocol Last Admin: 08/23/18 06:09 Dose: 3 ml Piperacillin Sod/Tazobactam (Sod 3.375 gm/ Sodium Chloride) 100 mls @ 25 mls/ hr IVPB Q8H [facility] Last Admin: 08/23/18 15:33 Dose: 25 mls/hr Insulin Human Lispro (Humalog*) 0 units SUBCUT FS ACHS ICU [facility]; Protocol Last Admin: 08/23/18 13:43 Dose: 12 units Lidocaine HCl (Lidocaine 2% Jelly*) 1 applic TOPICAL Q2H PRN PRN Reason: Incontinence dermatitis/pain Last Admin: 08/19/18 14:57 Dose: 1 applic Pharmacy Consult (Zosyn Per Pharmacy*) 1 note FOLLOW UP .ZOSYN PER PHARMACY [facility] Sertraline HCl (Zoloft*) 50 mg PO DAILY [facility] Last Admin: 08/23/18 09:06 Dose: 50 mg Tiotropium [place] (Spiriva Cap.Inh*) 1 cap INH DAILY [facility] Last Admin: 08/23/18 09:29 Dose: 1 cap Torsemide (Demadex*) 40 mg PO DAILY [facility] Vital Signs - 8 hr 08/23/18 08/23/18 09:36 11:55 Temperature 97.8 F Pulse Rate 107 Respiratory 22 22 Rate Blood Pressure 123/81 (mmHg) O2 Sat by Pulse 94 Oximetry Oxygen Devices in Use Now: Nasal Cannula, OxyMask Result Diagrams: 08/22/18 05:08 08/22/18 05:08 Microbiology and Other Data: Microbiology 08/18/18 09:35 Aerobic Blood Culture - Final Blood Line No Growth Day 5 Anaerobic Blood Culture - Final No Growth Day 5 08/17/18 11:10 Aerobic Blood Culture - Final Blood Venous No Growth Day 5 Anaerobic Blood Culture - Final No Growth Day 5 08/17/18 10:38 Aerobic Blood Culture - Final Blood Venous No Growth Day 5 Anaerobic Blood Culture - Final No Growth Day 5 08/17/18 14:28 Nasal Screen MRSA (PCR) - Final Nasal Mrsa Not Detected 08/17/18 14:26 Influenza Types A,B Antigen - Final Nasopharyngeal Specimen received for Influenza A/B Molecular testing 08/17/18 10:07 Influenza Types A,B Antigen - Final Nasopharyngeal Specimen received for Influenza A/B Molecular testing Assess/Plan/Problems-Billing Assessment: - Patient Problems (1) CHF (congestive heart failure) Current Visit: No Status: Chronic Priority: Medium Code(s): I50.9 - HEART FAILURE, UNSPECIFIED SNOMED Code(s): 60609353 Comment: Acute on chronic heart failure, diastolic, improved. Start torsemide po 08/24. (2) Morbid obesity Current Visit: Yes Status: Acute Code(s): E66.01 - MORBID (SEVERE) OBESITY DUE TO EXCESS CALORIES SNOMED Code(s): 175946223 Comment: BMI 42.5. (3) Debility Current Visit: Yes Status: Acute Code(s): R53.81 - OTHER MALAISE SNOMED Code(s): 02222028 Comment: Poor ability with PT, likely will need to return to SNF care. (4) CKD (chronic kidney disease) Current Visit: No Status: Acute Code(s): N18.9 - CHRONIC KIDNEY DISEASE, UNSPECIFIED SNOMED Code(s): 051812537 Comment: Est GFR 46.7 08/23/18. (5) Type 2 diabetes mellitus Current Visit: No Status: Chronic Priority: Medium Comment: Start Lantus 30 U 5 PM 08/23/18. (6) Afib Current Visit: No Status: Chronic Priority: Medium Code(s): I48.91 - UNSPECIFIED ATRIAL FIBRILLATION SNOMED Code(s): 66022777 Comment: Continue warfarin, dabigatran, carvedilol.
[2018-08-23] MEDS ORDERED: Insulin GLARGINE(*) 1 UNITS UNIT SUBCUT SCH (17:00)
[2018-08-23] MEDS: Donepezil TAB* 5 MG PO SCH (22:32)
[2018-08-24] MEDS: ZOSYN 3.375 GM Q8H per EXTENDED INFUSION IVPB SCH ×4 (07:39)
[2018-08-24] MEDS: Tiotropium CAP.INH* CAP.INH/18 MCG (USE ORDER SET !) INH SCH (07:40)
[2018-08-24 09:00] LABS: BUN/Creatinine Ratio 20.4 (8-20); Calcium 8.5 mg/dL (8.6-10.3); EGFR African American 59.5 (>60); EGFR Non-African American 49.2 (>60); Potassium 3.1 mmol/L (3.5-5.0)
[2018-08-24] MEDS ORDERED: Torsemide TAB* 20 MG PO SCH ×2 (09:00)
[2018-08-24] MEDS: Insulin LISPRO* 1 UNITS UNIT SUBCUT SCH ×2 (09:34→11:59)
[2018-08-24] MEDS: CMC:Dabigatran CAP(NF) 150 MG CAP PO SCH (09:35)
[2018-08-24] MEDS: Carvedilol TAB* 25 MG PO SCH (09:35)
[2018-08-24] MEDS: Sertraline* 50 MG TAB PO SCH (09:35)
[2018-08-24] MEDS: amLODIPine TAB* 5 MG PO SCH (09:35)
[2018-08-24] MEDS ORDERED: Potassium Chlor TAB* 20 MEQ TAB.ER PO SCH (10:00)
--- NOTE | 2018-08-24 10:13 | PN ---
Progress Note - Progress Note Date of Service: 08/24/18 Note: Time spent on discharge including exam of pt, discussion with patient, CM, nurse , review of EMR and preparation of discharge documentsw is 40 minutes.
--- NOTE | 2018-08-24 10:53 | TRS ---
CC: [facility].* TRANSFER SUMMARY: DATE OF ADMISSION: DATE OF TRANSFER: 08/24/18 HISTORY OF PRESENT ILLNESS: This is a 78-year-old woman presented with chief complaint of shortness of breath. She has a long history of COPD, congestive heart failure, dementia, kidney disease, diabetes, hypertension, atrial fibrillation. Findings on the initial chest x-ray were consistent with pulmonary edema. The patient was given intravenous furosemide initially by infusion, later by injection every 8 hours. Her dabigatran was continued while in the hospital. She was given antibiotics but I think it is more likely that she had congestive heart failure rather than lung infection. Her temperature never exceeded 99.4. Her white blood count was 11.1 on admission, it was 10.4 on 08/22. Symptomatically, she seemed improved. Her BNP was 830 on 08/17/18, it was not repeated. I am going to try her on torsemide 80 mg daily rather than her furosemide 60 mg daily which she was on before. She should have daily weights. I have recommended a BMP on 08/26/18 and 08/29/18. On echocardiogram, her ejection fraction was 40% to 45%. There was global hypokinesis with minor regional variation in the left ventricle. Abnormal left ventricular diastolic function was also observed. FINAL DIAGNOSES: 1. Acute on chronic systolic congestive heart failure. 2. Morbid obesity. 3. Debility. 4. Chronic kidney disease. 5. Diabetes. 6. Atrial fibrillation. MEDICATIONS ON TRANSFER: 1. Sertraline 50 mg daily. 2. Donepezil 10 mg h.s. 3. Carvedilol 12.5 mg b.i.d. 4. Pravastatin 40 mg daily. 5. Dabigatran 150 mg b.i.d. 6. Tiotropium 1 capsule daily. 7. Amlodipine 5 mg daily. 8. Skin protectant t.i.d. 9. Albuterol inhaler 1 puff every 4 hours p.r.n. 10. Acetaminophen 650 mg every 6 hours p.r.n. 11. Lactate as needed. 12. Lactobacillus 1 tab b.i.d. 13. Vitamin D 2000 units daily. 14. Glargine insulin 30 units daily in the morning, 25 units in the evening. 15. Albuterol nebulizer every 6 hours p.r.n. 16. Lispro insulin 10 units before each meal. 17. Torsemide 60 mg daily. 18. Potassium chloride 20 meq bid. CONDITION ON DISCHARGE: Stable. DISPOSITION ON DISCHARGE: Transfer to [facility]. The patient should have daily weights. [id number]/[facility] #: [id number] [facility]
[2018-08-24 12:00] VITALS: BP 151/77
== END 2018-08-24 13:55 | DRG 291 ==
LOC: ED 09:40 → ICU 12:54 → MED 08-22 16:20
PROVIDERS: ADMIT Internal Medicine; ATTEND Internal Medicine
PROC: 5A09457 Assistance with Respiratory Ventilation, 24-96 Consecutive Hours, Continuous Positive Airway Pressure (ICD-10-PCS; principal; 2018-08-17)
PROC: 02HV33Z Insertion of Infusion Device into Superior Vena Cava, Percutaneous Approach (ICD-10-PCS; 2018-08-17)
DX: I13.0 Hypertensive heart and chronic kidney disease with heart failure and stage 1 through stage 4 chronic kidney disease, or unspecified chronic kidney disease (principal); J96.01 Acute respiratory failure with hypoxia; I50.43 Acute on chronic combined systolic (congestive) and diastolic (congestive) heart failure; J18.9 Pneumonia, unspecified organism; J44.1 Chronic obstructive pulmonary disease with (acute) exacerbation; Z68.41 Body mass index [BMI] 40.0-44.9, adult; J44.0 Chronic obstructive pulmonary disease with (acute) lower respiratory infection; I25.10 Atherosclerotic heart disease of native coronary artery without angina pectoris; E11.22 Type 2 diabetes mellitus with diabetic chronic kidney disease; E78.5 Hyperlipidemia, unspecified; I48.91 Unspecified atrial fibrillation; K21.9 Gastro-esophageal reflux disease without esophagitis; M10.9 Gout, unspecified; M17.0 Bilateral primary osteoarthritis of knee; M19.042 Primary osteoarthritis, left hand; M19.041 Primary osteoarthritis, right hand; E11.36 Type 2 diabetes mellitus with diabetic cataract; E89.0 Postprocedural hypothyroidism; N18.9 Chronic kidney disease, unspecified; R53.81 Other malaise; E66.01 Morbid (severe) obesity due to excess calories; F32.9 Major depressive disorder, single episode, unspecified; E87.6 Hypokalemia; Z66 Do not resuscitate; E11.39 Type 2 diabetes mellitus with other diabetic ophthalmic complication; F01.50 Vascular dementia, unspecified severity, without behavioral disturbance, psychotic disturbance, mood disturbance, and anxiety; H42 Glaucoma in diseases classified elsewhere; Z86.73 Personal history of transient ischemic attack (TIA), and cerebral infarction without residual deficits; Z90.49 Acquired absence of other specified parts of digestive tract; Z87.01 Personal history of pneumonia (recurrent); Z87.891 Personal history of nicotine dependence; Z82.49 Family history of ischemic heart disease and other diseases of the circulatory system
CPT/HCPCS: 36415; 36600; 71045; 80048; 80053; 80202; 82803; 83605; 83735; 83880; 84484; 85025; 86140; 87040; 87641; 93005; 93306; 93970; 94640; 94660; 99285; A9270-GY; C8929; G8978-GP-CL; G8979-GP-CJ; J0456; J0696; J1940; J2405; J2543; J2765; J2920; J2930; J3370; J3475; J3480

== ENCOUNTER 2018-09-13 03:13 | Inpatient (IN) | payer MEDICARE ==
--- NOTE | 2018-09-13 03:20 | ED ---
Respiratory - HPI Summary HPI Summary: Pt is a 78 y/o F presenting to the ED brought in by EMS for respiratory distress from [facility]. LEVEL 5 CAVEAT: Pt is unable to give full hx and physical due to respiratory distress. Per EMS, the pt was very cyanotic upon arrival and short of breath. Her lungs were wet and noisy and her O2 sats only went up when a bipap was placed. - History of Current Complaint Stated Complaint: SOB PER EMS Time Seen by Provider: 09/13/18 03:15 Hx Obtained From: EMS Onset/Duration: Gradual Onset, Lasting Hours, Still Present Timing: Constant Initial Severity: Severe Current Severity: Severe Character: Dyspnea at Rest Sputum Amount: None Aggravating Factor(s): Exertion, Movement, Deep Breaths Alleviating Factor(s): Oxygen Associated Signs and Symptoms: SOB - Allergy/Home Medications Allergies/Adverse Reactions: Allergies Allergy/AdvReac Type Severity Reaction Status Date / Time No Known Allergies Allergy Verified 08/17/18 09:47 Home Medications: Home Medications Lantus(*) 25 units SUBCUT BEDTIME 09/13/18 [History Confirmed 09/13/18] PMH/Surg Hx/FS Hx/Imm Hx Previously Healthy: No Endocrine/Hematology History: Reports: Hx Diabetes, Hx Thyroid Disease - "operation" Cardiovascular History: Reports: Hx Cardiomegaly, Hx Congestive Heart Failure, Hx Coronary Artery Disease, Hx Hypercholesterolemia - HLD, Hx Hypertension, Other Cardiovascular Problems/Disorders - A-FIB Denies: Hx Pacemaker/ICD Respiratory History: Reports: Hx Chronic Bronchitis, Hx Chronic Obstructive Pulmonary Disease (COPD), Hx Pneumonia, Other Respiratory Problems/Disorders - PNEUMONIA 07/2013 Denies: Hx Asthma GI History: Reports: Hx Gall Bladder Disease, Hx Gastroesophageal Reflux Disease , Hx Jaundice - RELATED TO GALLSTONES, Other GI Disorders - ERCP 2 weeks ago Denies: Hx Ulcer History: Reports: Other Problems/Disorders - RENAL FAILURE IN 2008- FUNCTION IMPROVED Denies: Hx Renal Disease Musculoskeletal History: Reports: Hx Arthritis - OSTEO- IN HANDS AND KNEES, Hx Gout, Other Musculoskeletal History - LEFT HUMERUS FX [id number] TENDER AT TIMES Denies: Hx Orthopedic Injury - NEW DX LEFT SHOULDER FX 07/03/13, Hx Osteoporosis Sensory History: Reports: Hx Cataracts - MILD, Hx Glaucoma - SLIGHT-NO TREATMENT FOR Denies: Hx Contacts or Glasses, Hx Hearing Aid Opthamlomology History: Reports: Hx Cataracts - MILD, Hx Glaucoma - SLIGHT-NO TREATMENT FOR Denies: Hx Contacts or Glasses Neurological History: Reports: Hx Dementia, Hx Headaches - 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 PARTIAL THYROIDECTOMY. ERCP. choley Hx Anesthesia Reactions: Yes - SLOW TO WAKE UP AFTER ERCP - Immunization History Date of Tetanus Vaccine: PT STATES UNSURE Date of Influenza Vaccine: UTD Infectious Disease History: Reports: Hx Clostridium Difficile Denies: Hx Hepatitis, Hx Human Immunodeficiency Virus (HIV), History Other Infectious Disease - Family History Known Family History: Positive: Cardiac Disease, Hypertension - Social History Alcohol Use: unable to determine Hx Substance Use: No Substance Use Type: Reports: None Hx Tobacco Use: Yes Smoking Status (MU): Former Smoker Type: Cigarettes Amount Used/How Often: QUIT 50 YEARS AGO, USED ABOUT 1 YEAR Have You Smoked in the Last Year: No Review of Systems - ROS Summary Review of Systems Summary: LEVEL 5 CAVEAT: Pt's full hx and physical is unobtainable due to present status of respiratory distress. Positive: Shortness Of Breath All Other Systems Reviewed And Are Negative: Yes Physical Exam - Summary Physical Exam Summary: VITAL SIGNS: Reviewed. GENERAL: Patient is a morbidly obese female who is lying comfortable in the stretcher. Patient is in respiratory distress. HEAD AND FACE: No signs of trauma. No ecchymosis, hematomas or skull depressions. No sinus tenderness. EYES: PERRLA, EOMI x 2, No injected conjunctiva, no nystagmus. EARS: Hearing grossly intact. Ear canals and tympanic membranes are within normal limits. MOUTH: Oropharynx within normal limits. NECK: Supple, trachea is midline, no adenopathy, no JVD, no carotid bruit, no c- spine tenderness, neck with full ROM. CHEST: Symmetric, no tenderness at palpation LUNGS: Bilateral expiratory wheezes and rhonchi. CVS: Tachycardic, S1 and S2 present, no murmurs or gallops appreciated. ABDOMEN: Soft, non-tender. No signs of distention. No rebound no guarding, and no masses palpated. Bowel sounds are normal. EXTREMITIES: FROM in all major joints, no cyanosis or clubbing. Bilateral LE edema. NEURO: Alert and oriented x 3. No acute neurological deficits. SKIN: Dry and warm Triage Information Reviewed: Yes Vital Signs Reviewed: Yes Diagnostics - Laboratory Result Diagrams: 09/13/18 03:24 09/13/18 03:24 Lab Statement: Any lab studies that have been ordered have been reviewed, and results considered in the medical decision making process. - Radiology CXR Radiology Interpretation Completed By: ED Physician Summary of Radiographic Findings: Bilateral interstitial infiltrate. Cardiomegaly. Pulmonary edema. Pending official radiology report. - EKG 0407 Cardiac Rate: Other Rate - atrial fibrillation 106bpm EKG Rhythm: Atrial Fibrillation ST Segment: Normal Ectopy: None Summary of EKG Findings: LBBB. Disposition - Course Course Of Treatment: Pt is a 78 y/o F presenting to the ED brought in by EMS for respiratory distress from [facility]. LEVEL 5 CAVEAT: Pt's full hx and physical are unobtainable due to present status of respiratory distress. Per EMS , the pt was very cyanotic upon arrival and short of breath. Her lungs were wet and noisy and her O2 sats only went up when a bipap was placed. CXR shows bilateral interstitial infiltrate, cardiomegaly, and pulmonary edema. EKG shows atrial fibrillation at 106bpm with LBBB. Dr. Del Rosario will be accepting the pt to [facility] with a dx of CHF. - Diagnoses Provider Diagnoses: CHF (congestive heart failure) Discharge - Sign-Out/Discharge Documenting (check all that apply): Patient Departure - Discharge Plan Condition: Stable Disposition: ADMITTED TO [facility] Referrals: Maren Longoria DO [Primary Care Provider] - - Attestation Statements Document Initiated by Scribe: Yes Documenting Scribe: Zita Jordan Provider For Whom Scribe is Documenting (Include Credential): Shon Taveras MD. Scribe Attestation: Zita Muñiz scribed for Shon Taveras MD. on 09/13/18 at 0413. Status of Scribe Document: Ready Consult Consult: [id number] - Spoke with Dr. Del Rosario about the pt's current condition who will be the accepting physician to [facility].
[2018-09-13] MEDS ORDERED: Furosemide IV* 10 MG/ML VIAL (40 MG) ONE (03:28)
[2018-09-13] MEDS ORDERED: Albuterol/Ipratropium NEB.SOL* Albuterol 2.5 MG/Ipratropium 0.5 MG 3 ML INH ONE (03:30)
[2018-09-13] MEDS ORDERED: Furosemide IV* 10 MG/ML VIAL (40 MG) IV ONE ×2 (03:30→16:00)
[2018-09-13] MEDS ORDERED: Nitro 2% OINT* (Nitroglycerin) 1 INCH/PAK PAK TOPICAL ONE (03:31)
[2018-09-13] MEDS ORDERED: Furosemide IV* 10 MG/ML VIAL (40 MG) IV SLOW PU ONE (03:31)
[2018-09-13 03:39] LABS: ABS Basophils 0 10^3/ul (0-0.2); ABS Eosinophils 0 10^3/ul (0-0.6); ABS Lymphocytes 0.6 10^3/ul (1.0-4.8); ABS Monocytes 0.3 10^3/ul (0-0.8); ABS Neutrophils 7.7 10^3/ul (1.5-7.7); ABS Nucleated RBC 0 10^3/ul; Eosinophil % 0.1 %; Hematocrit 40 % (33-41); Hemoglobin 12.7 g/dL (12.0-16.0); Lymphocyte % 6.6 %; Mean Corpuscular HGB Conc 32 g/dL (31-36); Mean Corpuscular Hemoglobin 29 pg (27-31); Mean Corpuscular Volume 91 fL (80-97); Mean Platelet Volume 8.8 fL (7.4-10.4); Nucleated Red Blood Cells % 0; Platelet Count 309 10^3/uL (150-450); Red Blood Count 4.34 10^6 /uL (3.70-4.87); Red Cell Distribution Width 17 % (10.5-15); White Blood Count 8.5 10^3/uL (3.5-10.8)
[2018-09-13 03:43] LABS: Activated Partial Thrombo Time 58.6 seconds (26.0-36.3); INR 1.44 (0.77-1.02)
[2018-09-13 03:52] LABS: Albumin 3.5 g/dL (3.2-5.2); BUN/Creatinine Ratio 27.8 (8-20); Calcium 8.4 mg/dL (8.6-10.3); EGFR African American 59.5 (>60); EGFR Non-African American 49.2 (>60); Globulin 3.5 g/dL (2-4); Total Bilirubin 0.6 mg/dL (0.2-1.0)
[2018-09-13 03:54] LABS: Troponin I 0.03 ng/mL (<0.04)
[2018-09-13] MEDS ORDERED: Albuterol 2.5 MG/3 ML NEB.SOL* (0.083%) INH SCH (04:00)
[2018-09-13] MEDS ORDERED: Ondansetron INJ* 2 MG/ML VIAL IV ONE (04:54)
[2018-09-13] MEDS ORDERED: Ketorolac INJ* 30 MG/ML 1 ML VIAL IV PUSH ONE (04:55)
[2018-09-13] MEDS ORDERED: Acetaminophen TAB* 325 MG PO PRN (05:01)
[2018-09-13] MEDS ORDERED: Albuterol 2.5 MG/3 ML NEB.SOL* (0.083%) INH PRN (05:01)
--- NOTE | 2018-09-13 07:47 | ADMNOTE ---
Subjective Date of Service: 09/13/18 Interval History: HISTORY AND PHYSICAL PCP: Von [facility]: hypoxia HPI: 78 year old woman with history of CHF and restrictive lung disease was noted to have O2 sat <90 at [facility]. She was placed on increased O2, at 6L, but this did not correct deficit. She was transferred to [facility] ED, and placed on BiPAP. The patient cannot give history, due to dementia and respiratory distress. Family History: Findings - Mother had CAD, father of old age Social History: Findings - Lives at [facility], retired, son is HCP. She smoked decades ago, no alcohol or drug use Past Medical History: Findings - severe COPD, dementia, diastolic CHF, CAD, hypertension, CKD, Type 2 DM, a-fib Review of Systems - Measurements Intake and Output: Intake and Output Last 24 Hours 09/11/18 09/12/18 09/13/18 09/14/18 06:59 06:59 06:59 06:59 Weight 119.748 kg - Review of Systems General Comments: unable due to respiratory distress Objective Active Medications: Facility Medications: Ambulatory Orders Carvedilol TAB* [Coreg TAB*] 12.5 mg PO BID 11/29/13 Donepezil TAB* [Aricept 5 MG TAB*] 10 mg PO BEDTIME 11/29/13 Sertraline* [Zoloft*] 50 mg PO DAILY 11/29/13 Pravastatin (NF) [Pravachol (NF)] 40 mg PO DAILY 09/24/16 Dabigatran CAP(NF) [Pradaxa CAP(NF)] 150 mg PO BID 03/12/17 amLODIPine TAB* [Norvasc 5 mg TAB*] 5 mg PO DAILY #0 tab 03/17/17 Acetaminophen TAB* [Tylenol TAB*] 650 mg PO Q6H PRN 08/17/18 Albuterol 2.5MG/3ML (0.083%)* [Ventolin 2.5 MG/3 ML NEB.SAIMA*] 2.5 mg INH Q6H PRN 08/17/18 Cholecalciferol TAB* [Vitamin D TAB*] 2,000 units PO DAILY 08/17/18 Insulin GLARGINE(*) [Lantus(*)] 30 units SUBCUT QAM 08/17/18 Insulin LISPRO* [HumaLOG*] 10 units SUBCUT AC 08/17/18 Lactase Enzyme (NF) [Lactaid Fast Act (NF)] 3,000 unit PO AC 08/17/18 Lactase Enzyme (NF) [Lactaid Fast Act (NF)] 3,000 unit PO DAILY PRN 08/17/18 Lactobacillus Acidophilus* 1 tab PO BID 08/17/18 Lantus(*) 25 units SUBCUT BEDTIME 09/13/18 Vital Signs - 8 hr 09/13/18 09/13/18 09/13/18 03:22 03:27 03:33 Temperature 37.0 C Pulse Rate 88 80 89 Respiratory 22 21 21 Rate Blood Pressure 155/84 155/84 (mmHg) O2 Sat by Pulse 84 88 89 Oximetry 09/13/18 09/13/18 09/13/18 06:24 06:30 07:00 Temperature 35.1 C 35.2 C 35.3 C Pulse Rate 71 83 98 Respiratory 19 19 18 Rate Blood Pressure 159/111 154/103 156/90 (mmHg) O2 Sat by Pulse 91 95 94 Oximetry Oxygen Devices in Use Now: BiPAP Appearance: moderate respiratory distress, tolerating BiPAP Eyes: No Scleral Icterus Ears/Nose/Mouth/Throat: NL Teeth, Lips, Gums Neck: NL Appearance and Movements; NL JVP Respiratory: Symmetrical Chest Expansion and Respiratory Effort, - - rales at bases bilat Cardiovascular: NL Sounds; No Murmurs; No JVD Abdominal: NL Sounds; No Tenderness; No Distention Lymphatic: No Cervical Adenopathy Extremities: No Edema Skin: No Rash or Ulcers Neurological: Alert and Oriented x 3 Lines/Tubes/Other Access: Clean, Dry and Intact Peripheral IV Nutrition: - - NPO Result Diagrams: 09/13/18 03:24 09/13/18 03:24 Additional Lab and Data: Laboratory Tests 09/13/18 09/13/18 09/13/18 03:24 03:24 03:35 INR (Anticoag Therapy) 1.44 H APTT 58.6 H ABG pH 7.23 L ABG pCO2 74 H* ABG pO2 68 L ABG HCO3 25.8 Glucose 72 Calcium 8.4 L Troponin I 0.03 Diagnostic Imaging: CXR: pulmonary edema EKG Data: A-fib, LBBB Assess/Plan/Problems-Billing Assessment: 78 year old woman with acute on chronic hypercarbic and hypoxic respiratory failure due to CHF - Patient Problems (1) Acute and chronic respiratory failure with hypercapnia Current Visit: Yes Status: Acute Priority: High Code(s): J96.22 - ACUTE AND CHRONIC RESPIRATORY FAILURE WITH HYPERCAPNIA SNOMED Code(s): 6121618594296 Comment: -Patient is DNR, but tolerating BiPAP well, will get repeat ABG at 10 AM -Will monitor in ICU, continue to diurese -Unclear whether diet is managed at SNF appropriately -spoke with terri who is interested in palliative care and considering comfort (2) Diastolic CHF, acute on chronic Current Visit: Yes Status: Acute Priority: Medium Code(s): I50.33 - ACUTE ON CHRONIC DIASTOLIC (CONGESTIVE) HEART FAILURE SNOMED Code(s): 492746977 Comment: -Just had lasix in ER, will monitor for response and give additional if needed (3) DVT prophylaxis Current Visit: Yes Status: Acute Priority: Medium Onset Date: 05/20/14 Code(s): BAF2082 - SNOMED Code(s): 537013210 Comment: - Continue dabigatran (4) Type 2 diabetes mellitus Current Visit: Yes Status: Chronic Priority: Medium Comment: for NPO status due to BIPAP-will stop Lantus, cont ISS (5) Afib Current Visit: No Status: Chronic Priority: Medium Code(s): I48.91 - UNSPECIFIED ATRIAL FIBRILLATION SNOMED Code(s): 45919340 Comment: -Continue dabigatran, carvedilol. Status and Disposition: ICU for rescue BiPAP
[2018-09-13] MEDS: Morphine 4 MG/ML VIAL (1 ml) 4 MG/ML VIAL IV PRN ×2 (08:18→15:19)
[2018-09-13] MEDS ORDERED: Ondansetron INJ* 2 MG/ML VIAL IV PRN (08:32)
[2018-09-13] MEDS ORDERED: Insulin GLARGINE(*) 1 UNITS UNIT SUBCUT SCH ×3 (09:00→21:00)
--- NOTE | 2018-09-13 09:03 | PN ---
Subjective Date of Service: 09/13/18 Interval History: Pt still requires BIPAP, when BIPAP was off for a couple on minutes when pt felt nauseated sats dropped to 70's% Pt c/o pain in her bottom . Seen with her daughter and HCP by the bedside Family History: Findings - Mother had CAD, father of old age Social History: Findings - Lives at [facility], retired, son is HCP. She smoked decades ago, no alcohol or drug use Past Medical History: Findings - severe COPD, dementia, diastolic CHF, CAD, hypertension, CKD, Type 2 DM, a-fib Objective Active Medications: Acetaminophen (Tylenol Tab*) 650 mg PO Q6H PRN PRN Reason: PAIN Albuterol (Ventolin 2.5 Mg/3 Ml Neb.Amy*) 2.5 mg INH .Q20M GABE Albuterol (Ventolin 2.5 Mg/3 Ml Neb.Amy*) 2.5 mg INH Q6H PRN PRN Reason: SHORTNESS OF BREATH Amlodipine Besylate (Norvasc Tab*) 5 mg PO DAILY [facility] Atorvastatin Calcium (Lipitor*) 10 mg PO QPM [facility]; Protocol Carvedilol (Coreg Tab*) 12.5 mg PO BID [facility] Cholecalciferol (Vitamin D Tab*) 2,000 units PO DAILY [facility] Dabigatran (Pradaxa Cap(Nf)) 150 mg PO BID [facility] Donepezil HCl (Aricept Tab*) 10 mg PO BEDTIME [facility] Insulin Glargine (Lantus(*)) 15 units SUBCUT QAM [facility] Insulin Glargine (Lantus(*)) 13 units SUBCUT BEDTIME [facility] Morphine Sulfate (Morphine 4 Mg/Ml Vial (1 Ml)) 1 mg IV Q4H PRN PRN Reason: PAIN Last Admin: 09/13/18 08:18 Dose: 1 mg Ondansetron HCl (Zofran Inj*) 4 mg IV Q4H PRN PRN Reason: NAUSEA Sertraline HCl (Zoloft*) 50 mg PO DAILY [facility] Vital Signs - 8 hr 09/13/18 09/13/18 09/13/18 03:22 03:27 03:33 Temperature 98.6 F Pulse Rate 88 80 89 Respiratory 22 21 21 Rate Blood Pressure 155/84 155/84 (mmHg) O2 Sat by Pulse 84 88 89 Oximetry 09/13/18 09/13/18 09/13/18 03:44 03:46 03:52 Temperature 93.6 F Pulse Rate 92 100 89 Respiratory 20 20 20 Rate Blood Pressure 148/91 (mmHg) O2 Sat by Pulse 97 97 94 Oximetry 09/13/18 09/13/18 09/13/18 03:58 04:00 04:07 Temperature 93.9 F 93.9 F 94.1 F Pulse Rate 79 74 75 Respiratory 19 20 20 Rate Blood Pressure 144/76 143/79 (mmHg) O2 Sat by Pulse 94 94 93 Oximetry 09/13/18 09/13/18 09/13/18 04:22 04:37 04:52 Temperature 94.3 F 94.5 F 94.6 F Pulse Rate 74 84 73 Respiratory 20 18 17 Rate Blood Pressure 122/74 110/79 121/79 (mmHg) O2 Sat by Pulse 95 97 97 Oximetry 09/13/18 09/13/18 09/13/18 05:00 05:07 05:19 Temperature 94.6 F 94.6 F 34.8 F Pulse Rate 78 91 102 Respiratory 16 17 16 Rate Blood Pressure 115/79 115/79 (mmHg) O2 Sat by Pulse 99 95 96 Oximetry 09/13/18 09/13/18 09/13/18 05:22 05:37 05:53 Temperature 94.8 F 94.8 F 95.0 F Pulse Rate 89 85 79 Respiratory 18 15 15 Rate Blood Pressure 115/70 120/77 118/65 (mmHg) O2 Sat by Pulse 95 94 97 Oximetry 09/13/18 09/13/18 09/13/18 06:00 06:18 06:23 Temperature 95.0 F 95.0 F 95.2 F Pulse Rate 96 96 86 Respiratory 18 16 16 Rate Blood Pressure 118/65 181/107 (mmHg) O2 Sat by Pulse 95 96 94 Oximetry 09/13/18 09/13/18 09/13/18 06:24 06:30 07:00 Temperature 95.2 F 95.4 F 95.5 F Pulse Rate 71 83 98 Respiratory 19 19 18 Rate Blood Pressure 159/111 154/103 156/90 (mmHg) O2 Sat by Pulse 91 95 94 Oximetry 09/13/18 08:18 Temperature Pulse Rate Respiratory 24 Rate Blood Pressure (mmHg) O2 Sat by Pulse Oximetry Oxygen Devices in Use Now: BiPAP Appearance: 78 yo F in nAD, AAOx2 Eyes: No Scleral Icterus, PERRLA Ears/Nose/Mouth/Throat: NL Teeth, Lips, Gums, Mucous Membranes Moist, - - BIPAP mask in place Respiratory: Symmetrical Chest Expansion and Respiratory Effort, - - rales b/l lower lungs, sacttered wheezes Cardiovascular: - - irregular, no murmur Abdominal: NL Sounds; No Tenderness; No Distention, No Hepatosplenomegaly Lymphatic: No Cervical Adenopathy Extremities: No Clubbing, Cyanosis, - - trace pedeal dedma b/l Skin: No Nodules or Sclerosis, - - sacral/buccocks area with nonblanchable skin stage 1-2 Neurological: NL Muscle Strength and Tone Result Diagrams: 09/13/18 03:24 09/13/18 03:24 Additional Lab and Data: Laboratory Tests 09/13/18 09/13/18 09/13/18 03:24 03:24 03:35 INR (Anticoag Therapy) 1.44 H APTT 58.6 H ABG pH 7.23 L ABG pCO2 74 H* ABG pO2 68 L ABG HCO3 25.8 Glucose 72 Calcium 8.4 L Troponin I 0.03 Microbiology and Other Data: Microbiology 09/13/18 06:21 Nasal Screen MRSA (PCR) - Final Nasal Mrsa Not Detected Diagnostic Imaging: CXR: pulmonary edema EKG Data: A-fib, LBBB Assess/Plan/Problems-Billing Assessment: 78 year old woman with acute on chronic hypercarbic and hypoxic respiratory failure due to CHF H/o a. fib-chronic H/o recent COPD/PNS discharged on 5 L 02 on 08/24/18 h/o CVA, dementia EF 40% - Patient Problems (1) Acute and chronic respiratory failure with hypercapnia Current Visit: Yes Comment: -Patient is DNR, but tolerating BiPAP well, will get repeat ABG at 10 AM -Will monitor in ICU, continue to diurese -Unclear whether diet is managed at SNF appropriately -spoke with terri who is interested in palliative care and considering comfort (2) Diastolic CHF, acute on chronic Comment: -Just had lasix in ER, will monitor for response and give additional if needed (3) CKD (chronic kidney disease) Comment: at baseline, stage 3 due to DM Est GFR 46.7 08/23/18. (4) COPD (chronic obstructive pulmonary disease) Comment: with mild exacerbation today will start Solu Medrol (5) Afib Comment: Continue dabigatran, carvedilol. Rate fairly controlled (6) HTN (hypertension) Comment: - SBP elevated. - Continue carvedilol and IV furosemide today. Amlodipine added as well. (7) Type 2 diabetes mellitus Comment: for NPO status due to BIPAP-will stop Lantus, cont ISS (8) DVT prophylaxis Comment: - Continue pradaxa. (9) DNR (do not resuscitate) Comment: HCP inclined to comfort care. she will talk with her leandroter. Palliative care consult placed Status and Disposition: Inpatient
[2018-09-13] MEDS ORDERED: Dextrose 50% Syringe 50 ML* 25 GM/50 ML SYRINGE IV PUSH PRN (09:12)
[2018-09-13] MEDS ORDERED: Metoprolol Tartrate IV* 1 MG/ML 5 ML VIAL IV PRN (10:15)
[2018-09-13] MEDS: Cholecalciferol TAB* 1000 UNITS PO SCH (12:11)
[2018-09-13] MEDS: methylPREDNISolone SOD 40 MG* 1 ML VIAL IV SCH ×2 (12:51→19:19)
[2018-09-13] MEDS: Carvedilol TAB* 6.25 MG PO SCH ×2 (12:56→21:46)
[2018-09-13] MEDS: Sertraline* 50 MG TAB PO SCH (12:57)
[2018-09-13] MEDS: amLODIPine TAB* 5 MG PO SCH (12:57)
[2018-09-13] MEDS: CMCS:Dabigatran CAP(NF) 150 MG CAP PO SCH ×2 (12:59→21:46)
--- NOTE | 2018-09-13 13:02 | PN ---
Progress Note - Progress Note Date of Service: 09/13/18 Note: Spoke with HCP Mayte daughter in law. Will call back at 6pm when is home.
[2018-09-13] MEDS: Insulin LISPRO* 1 UNITS UNIT SUBCUT SCH ×3 (13:06→20:25)
[2018-09-13 15:36] LABS: C Reactive Protein 8.5 mg/L (<8.01)
[2018-09-13] MEDS ORDERED: Dextrose 50% Syringe 50 ML* 25 GM/50 ML SYRINGE IV PUSH ONE (16:14)
[2018-09-13] MEDS ORDERED: D5NS 0.9% 1000 ML BAG* 1,000 ML IV SCH (17:00)
[2018-09-13] MEDS ORDERED: D5W NS 0.9% 20Meq KCL 1000 ML* 1,000 ML IV SCH (17:00)
--- NOTE | 2018-09-13 18:18 | CONSULT ---
Palliative / Hospice Consult Ordering Provider: Adelaida Li - Subjective Code Status: DNR Advance Directives Location: In Chart MOLST Part A Completed: Yes - on chart MOLST Part E Completed:: Yes - on chart - History or Present Illness History or Present Illness: 78 yo female with dementia, CHF and COPD resident of [facility]) presented to ER with low O2 sats with increasing O2 use. Pt was placed on Bipap and admitted to ICU. PMH is significant for dementia since 2004, CHF diastolic, COPD on 5 liters at , CAD, HTN, CKD, type 2 DM on insulin and afib. She is an ex tob user/no etoh/ no drug use, . All history is from family and chart because pt is unable to answer questions due to her dementia. Ekg showed afib, CXR showed pul edema and effusion, BUN/Cr 30/1.08 egfr 49.2 tprot 7, alb 3.5 Lab Values: Abnormal Lab Results 09/13/18 09/13/18 09/13/18 03:24 03:24 03:24 WBC 8.5 RBC 4.34 Hgb 12.7 Hct 40 MCV 91 MCH 29 MCHC 32 RDW 17 H Plt Count 309 MPV 8.8 Neut % (Auto) 90.1 Lymph % (Auto) 6.6 [place] % (Auto) 3.1 Eos % (Auto) 0.1 Baso % (Auto) 0.1 Absolute Neuts (auto) 7.7 Absolute Lymphs (auto) 0.6 L Absolute Monos (auto) 0.3 Absolute Eos (auto) 0 Absolute Basos (auto) 0 Absolute Nucleated RBC 0 Nucleated RBC % 0 INR (Anticoag Therapy) 1.44 H APTT 58.6 H Patient Temperature ABG pH ABG pCO2 ABG pO2 ABG HCO3 ABG O2 Saturation ABG Base Excess Respiration Rate O2 Delivery Device Ventilator Type Vent Mode FiO2 Inspiratory Time PEEP Pressure Support Pressure Control EPAP IPAP BiPAP Sodium 138 Potassium 5.0 Chloride 103 Carbon Dioxide 32 Anion Gap 3 BUN 30 H Creatinine 1.08 H Est GFR ( Amer) 59.5 Est GFR (Non-Af Amer) 49.2 BUN/Creatinine Ratio 27.8 H Glucose 72 POC Glucose (mg/dL) Calcium 8.4 L Total Bilirubin 0.60 AST 29 ALT 30 Alkaline Phosphatase 91 Troponin I 0.03 C-Reactive Protein 8.50 H Total Protein 7.0 Albumin 3.5 Globulin 3.5 Albumin/Globulin Ratio 1.0 09/13/18 09/13/18 09/13/18 03:35 05:16 08:22 WBC RBC Hgb Hct MCV MCH MCHC RDW Plt Count MPV Neut % (Auto) Lymph % (Auto) [place] % (Auto) Eos % (Auto) Baso % (Auto) Absolute Neuts (auto) Absolute Lymphs (auto) Absolute Monos (auto) Absolute Eos (auto) Absolute Basos (auto) Absolute Nucleated RBC Nucleated RBC % INR (Anticoag Therapy) APTT Patient Temperature ABG pH 7.23 L ABG pCO2 74 H* ABG pO2 68 L ABG HCO3 25.8 ABG O2 Saturation 94.3 ABG Base Excess 1.3 Respiration Rate O2 Delivery Device Ventilator Type Vent Mode FiO2 Inspiratory Time PEEP Pressure Support Pressure Control EPAP IPAP BiPAP Sodium Potassium Chloride Carbon Dioxide Anion Gap BUN Creatinine Est GFR ( Amer) Est GFR (Non-Af Amer) BUN/Creatinine Ratio Glucose POC Glucose (mg/dL) 85 85 Calcium Total Bilirubin AST ALT Alkaline Phosphatase Troponin I C-Reactive Protein Total Protein Albumin Globulin Albumin/Globulin Ratio 09/13/18 09/13/18 09/13/18 10:45 12:43 12:46 WBC RBC Hgb Hct MCV MCH MCHC RDW Plt Count MPV Neut % (Auto) Lymph % (Auto) [place] % (Auto) Eos % (Auto) Baso % (Auto) Absolute Neuts (auto) Absolute Lymphs (auto) Absolute Monos (auto) Absolute Eos (auto) Absolute Basos (auto) Absolute Nucleated RBC Nucleated RBC % INR (Anticoag Therapy) APTT Patient Temperature Not Reportable ABG pH 7.37 ABG pCO2 56 H ABG pO2 81 ABG HCO3 29.2 ABG O2 Saturation 98.9 H ABG Base Excess 5.5 H Respiration Rate Not Reportable O2 Delivery Device Not Reportable Ventilator Type Not Reportable Vent Mode Not Reportable FiO2 100 Inspiratory Time Not Reportable PEEP Not Reportable Pressure Support Not Reportable Pressure Control Not Reportable EPAP Not Reportable IPAP 9 BiPAP 18 Sodium Potassium Chloride Carbon Dioxide Anion Gap BUN Creatinine Est GFR ( Amer) Est GFR (Non-Af Amer) BUN/Creatinine Ratio Glucose POC Glucose (mg/dL) 32 L* 30 L* Calcium Total Bilirubin AST ALT Alkaline Phosphatase Troponin I C-Reactive Protein Total Protein Albumin Globulin Albumin/Globulin Ratio 09/13/18 09/13/18 09/13/18 13:21 16:11 16:59 WBC RBC Hgb Hct MCV MCH MCHC RDW Plt Count MPV Neut % (Auto) Lymph % (Auto) [place] % (Auto) Eos % (Auto) Baso % (Auto) Absolute Neuts (auto) Absolute Lymphs (auto) Absolute Monos (auto) Absolute Eos (auto) Absolute Basos (auto) Absolute Nucleated RBC Nucleated RBC % INR (Anticoag Therapy) APTT Patient Temperature ABG pH ABG pCO2 ABG pO2 ABG HCO3 ABG O2 Saturation ABG Base Excess Respiration Rate O2 Delivery Device Ventilator Type Vent Mode FiO2 Inspiratory Time PEEP Pressure Support Pressure Control EPAP IPAP BiPAP Sodium Potassium Chloride Carbon Dioxide Anion Gap BUN Creatinine Est GFR ( Amer) Est GFR (Non-Af Amer) BUN/Creatinine Ratio Glucose POC Glucose (mg/dL) 127 H 60 L 184 H Calcium Total Bilirubin AST ALT Alkaline Phosphatase Troponin I C-Reactive Protein Total Protein Albumin Globulin Albumin/Globulin Ratio Laboratory Last Values WBC 8.5 10^3/uL (3.5-10.8) 09/13/18 03:24 RBC 4.34 10^6 /uL (3.70-4.87) 09/13/18 03:24 Hgb 12.7 g/dL (12.0-16.0) 09/13/18 03:24 Hct 40 % (33-41) 09/13/18 03:24 MCV 91 fL (80-97) 09/13/18 03:24 MCH 29 pg (27-31) 09/13/18 03:24 MCHC 32 g/dL (31-36) 09/13/18 03:24 RDW 17 % (10.5-15) H 09/13/18 03:24 Plt Count 309 10^3/uL (150-450) 09/13/18 03:24 MPV 8.8 fL (7.4-10.4) 09/13/18 03:24 Neut % (Auto) 90.1 % 09/13/18 03:24 Lymph % (Auto) 6.6 % 09/13/18 03:24 [place] % (Auto) 3.1 % 09/13/18 03:24 Eos % (Auto) 0.1 % 09/13/18 03:24 Baso % (Auto) 0.1 % 09/13/18 03:24 Absolute Neuts (auto) 7.7 10^3/ul (1.5-7.7) 09/13/18 03:24 Absolute Lymphs (auto) 0.6 10^3/ul (1.0-4.8) L 09/13/18 03:24 Absolute Monos (auto) 0.3 10^3/ul (0-0.8) 09/13/18 03:24 Absolute Eos (auto) 0 10^3/ul (0-0.6) 09/13/18 03:24 Absolute Basos (auto) 0 10^3/ul (0-0.2) 09/13/18 03:24 Absolute Nucleated RBC 0 10^3/ul 09/13/18 03:24 Nucleated RBC % 0 09/13/18 03:24 INR (Anticoag Therapy) 1.44 (0.77-1.02) H 09/13/18 03:24 APTT 58.6 seconds (26.0-36.3) H 09/13/18 03:24 Patient Temperature Not Reportable 09/13/18 10:45 ABG pH 7.37 (7.35-7.45) 09/13/18 10:45 ABG pCO2 56 mmHg (35-45) H 09/13/18 10:45 ABG pO2 81 mmHg (80-100) 09/13/18 10:45 ABG HCO3 29.2 mmol/L (19-31) 09/13/18 10:45 ABG O2 Saturation 98.9 % (94.0-98.0) H 09/13/18 10:45 ABG Base Excess 5.5 mmol/L (-2.0-2.0) H 09/13/18 10:45 Respiration Rate Not Reportable 09/13/18 10:45 O2 Delivery Device Not Reportable 09/13/18 10:45 Ventilator Type Not Reportable 09/13/18 10:45 Vent Mode Not Reportable 09/13/18 10:45 FiO2 100 09/13/18 10:45 Inspiratory Time Not Reportable 09/13/18 10:45 PEEP Not Reportable 09/13/18 10:45 Pressure Support Not Reportable 09/13/18 10:45 Pressure Control Not Reportable 09/13/18 10:45 EPAP Not Reportable 09/13/18 10:45 IPAP 9 09/13/18 10:45 BiPAP 18 09/13/18 10:45 Sodium 138 mmol/L (135-145) 09/13/18 03:24 Potassium 5.0 mmol/L (3.5-5.0) 09/13/18 03:24 Chloride 103 mmol/L (101-111) 09/13/18 03:24 Carbon Dioxide 32 mmol/L (22-32) 09/13/18 03:24 Anion Gap 3 mmol/L (2-11) 09/13/18 03:24 BUN 30 mg/dL (6-24) H 09/13/18 03:24 Creatinine 1.08 mg/dL (0.51-0.95) H 09/13/18 03:24 Est GFR ( Amer) 59.5 (>60) 09/13/18 03:24 Est GFR (Non-Af Amer) 49.2 (>60) 09/13/18 03:24 BUN/Creatinine Ratio 27.8 (8-20) H 09/13/18 03:24 Glucose 72 mg/dL (70-100) 09/13/18 03:24 POC Glucose (mg/dL) 184 mg/dL (70-100) H 09/13/18 16:59 Calcium 8.4 mg/dL (8.6-10.3) L 09/13/18 03:24 Total Bilirubin 0.60 mg/dL (0.2-1.0) 09/13/18 03:24 AST 29 U/L (13-39) 09/13/18 03:24 ALT 30 U/L (7-52) 09/13/18 03:24 Alkaline Phosphatase 91 U/L (34-104) 09/13/18 03:24 Troponin I 0.03 ng/mL (<0.04) 09/13/18 03:24 C-Reactive Protein 8.50 mg/L (<8.01) H 09/13/18 03:24 Total Protein 7.0 g/dL (6.4-8.9) 09/13/18 03:24 Albumin 3.5 g/dL (3.2-5.2) 09/13/18 03:24 Globulin 3.5 g/dL (2-4) 09/13/18 03:24 Albumin/Globulin Ratio 1.0 (1-3) 09/13/18 03:24 - Objective Active Medications: Acetaminophen (Tylenol Tab*) 650 mg PO Q6H PRN PRN Reason: PAIN Albuterol (Ventolin 2.5 Mg/3 Ml Neb.Amy*) 2.5 mg INH Q6H PRN PRN Reason: SHORTNESS OF BREATH Amlodipine Besylate (Norvasc Tab*) 5 mg PO DAILY [facility] Last Admin: 09/13/18 12:57 Dose: 5 mg Atorvastatin Calcium (Lipitor*) 10 mg PO QPM [facility]; Protocol Carvedilol (Coreg Tab*) 12.5 mg PO BID [facility] Last Admin: 09/13/18 12:56 Dose: 12.5 mg Cholecalciferol (Vitamin D Tab*) 2,000 units PO DAILY [facility] Last Admin: 09/13/18 12:11 Dose: Not Given Dabigatran (Pradaxa Cap(Nf)) 150 mg PO BID [facility] Last Admin: 09/13/18 12:59 Dose: 150 mg Dextrose (D50w Syringe 50 Ml*) 12.5 gm IV PUSH .FOR FS < 60 - SS PRN PRN Reason: FS < 60 Last Admin: 09/13/18 12:54 Dose: 25 gm Donepezil HCl (Aricept Tab*) 10 mg PO BEDTIME [facility] Furosemide (Lasix Iv*) 40 mg IV DAILY [facility] Dextrose/Sodium Chloride (D5ns 0.9% 1000 Ml Bag*) 1,000 mls @ 50 mls/hr IV PER RATE [facility] Last Admin: 09/13/18 16:27 Dose: 50 mls/hr Insulin Human Lispro (Humalog*) 0 units SUBCUT FS Q6 ICU [facility]; Protocol Last Admin: 09/13/18 13:06 Dose: Not Given Methylprednisolone Sodium Succinate (Solu-Medrol 40 Mg) 40 mg IV Q8H [facility] Last Admin: 09/13/18 12:51 Dose: 40 mg Metoprolol Tartrate (Lopressor Iv*) 5 mg IV Q6H PRN PRN Reason: TACHYCARDIA Last Admin: 09/13/18 12:51 Dose: 5 mg Morphine Sulfate (Morphine 4 Mg/Ml Vial (1 Ml)) 1 mg IV Q4H PRN PRN Reason: PAIN Last Admin: 09/13/18 15:19 Dose: 1 mg Ondansetron HCl (Zofran Inj*) 4 mg IV Q4H PRN PRN Reason: NAUSEA Sertraline HCl (Zoloft*) 50 mg PO DAILY [facility] Last Admin: 09/13/18 12:57 Dose: 50 mg Vital Signs: Vital Signs: Temp Pulse Resp BP Pulse Ox 100.2 F 93 24 104/70 95 09/13/18 18:01 09/13/18 18:01 09/13/18 18:01 09/13/18 18:00 09/13/18 18:01 Patient Weight: Weight 114.8 kg Intake and Output: Intake & Output 09/11/18 09/12/18 09/13/18 09/14/18 06:59 06:59 06:59 06:59 Output Total 2475 Balance -2475 Weight 119.748 kg 114.8 kg Output: [place] [id number] ADLs: Meal Record Start: 09/13/18 06: 01 Freq: 09,13,18 Status: Active Protocol: Created 09/13/18 06:01 System (Rec: 09/13/18 06:01 System [id number]) Document 09/13/18 09:00 [id number] (Rec: 09/13/18 09:58 [id number] ICU-C12) Document 09/13/18 13:00 [id number] (Rec: 09/13/18 15:58 [id number] ICU-C12) Document 09/13/18 18:00 [id number] (Rec: 09/13/18 18:11 [id number] ICU-C12) Intake and Output Start: 09/13/18 03: 27 Freq: Status: Cancelled Protocol: Created 09/13/18 03:27 System (Rec: 09/13/18 03:27 System [id number]) Intake and Output Start: 09/13/18 06: 01 Freq: Q1HR Status: Cancelled Protocol: Created 09/13/18 06:01 System (Rec: 09/13/18 06:01 System ICU-C25) Document 09/13/18 07:00 [id number] (Rec: 09/13/18 08:28 [id number] ICU-M27) Document 09/13/18 08:00 [id number] (Rec: 09/13/18 08:28 [id number] ICU-M27) Document 09/13/18 09:00 [id number] (Rec: 09/13/18 09:58 [id number] ICU-C12) Document 09/13/18 10:00 [id number] (Rec: 09/13/18 10:08 [id number] ICU-C12) Intake and Output Start: 09/13/18 10: 14 Freq: 06,14,2200 Status: Active Protocol: Created 09/13/18 10:15 [id number] (Rec: 09/13/18 10:15 BKG [id number]) Document 09/13/18 13:07 [id number] (Rec: 09/13/18 13:07 [id number] ICU-M27) Document 09/13/18 14:00 [id number] (Rec: 09/13/18 16:02 [id number] ICU-C12) Document 09/13/18 17:00 [id number] (Rec: 09/13/18 17:00 [id number] ICU-M27) Eyes: No Scleral Icterus, PERRLA Ears/Nose/Mouth/Throat: NL Teeth, Lips, Gums, Mucous Membranes Moist, - - BIPAP mask in place Neck: NL Appearance and Movements; NL JVP Cardiovascular: NL Sounds; No Murmurs; No JVD, - - irregular, no murmur Respiratory: - - limitted air movement Abdominal: NL Sounds; No Tenderness; No Distention, No Hepatosplenomegaly Extremities: No Clubbing, Cyanosis, - - trace pedeal dedma b/l Neurological: NL Muscle Strength and Tone - Assessment Assessment: 78 yo female with dementia, diastolic CHF and COPD in respiratory distress - Plan Consult Plan (MU): Hospice Plan: Spoke with daughter in law who is pts HCP. She had been her primary electric welder for 6yrs before pt went to [facility]. Reviewed pt's illnesses and prognosis. Pt had requested DNR/DNI, she did not want to be intubated. If pt's respiratory status worsens pt is most likely going to and HCP is aware and understands. When HCP saw her earlier this am pt was uncomfortable with the mask wanting to remove it and moaning. We discussed the benefits of hospice. HCP was aware of hospice bc her father in law had used hospice when he . If pt improves and is discharged back to [facility], HCP would like her to be on Hospice so she doesn't have to keep coming back to the hospital. I called back later at the request of the HCP to also speak with her who is the son of the pt. We discussed the same issues of prognosis and hospice. Son and daughter in law are in agreement of her present care. If pt is still not doing well in the am they will discuss stopping the bipap. Pt qualifies for hospice with the diagnosis of mod/severe dementia, COPD and diastolic CHF. KPS 20% PPS 20% - Time On Unit Date of Evaluation: 09/13/18 Hospice Consult Time in: 03:00 Hospice Consult Time Out: 04:30 Hospice Consult Time Total: 90 > 50% of Time Spend In Counseling or Coordinating Care: Yes
[2018-09-13] MEDS ORDERED: LANTUS 25 UNIT SUBCUT SCH (21:00)
[2018-09-13] MEDS: Atorvastatin* 10 MG TAB PO SCH (21:46)
[2018-09-13] MEDS: Donepezil TAB* 5 MG PO SCH (21:46)
[2018-09-14] MEDS: Insulin LISPRO* 1 UNITS UNIT SUBCUT SCH ×6 (00:28→22:06)
[2018-09-14] MEDS: methylPREDNISolone SOD 40 MG* 1 ML VIAL IV SCH ×3 (03:13→17:53)
[2018-09-14 05:58] LABS: ABS Basophils 0 10^3/ul (0-0.2); ABS Eosinophils 0 10^3/ul (0-0.6); ABS Lymphocytes 0.3 10^3/ul (1.0-4.8); ABS Monocytes 0.2 10^3/ul (0-0.8); ABS Neutrophils 9.6 10^3/ul (1.5-7.7); ABS Nucleated RBC 0 10^3/ul; Eosinophil % 0.1 %; Hematocrit 37 % (33-41); Mean Corpuscular HGB Conc 33 g/dL (31-36); Mean Corpuscular Hemoglobin 29 pg (27-31); Mean Corpuscular Volume 90 fL (80-97); Mean Platelet Volume 9.1 fL (7.4-10.4); Nucleated Red Blood Cells % 0.1; Platelet Count 236 10^3/uL (150-450); Red Blood Count 4.07 10^6 /uL (3.70-4.87); Red Cell Distribution Width 17 % (10.5-15); White Blood Count 10.1 10^3/uL (3.5-10.8)
[2018-09-14 06:23] LABS: BUN/Creatinine Ratio 23.3 (8-20); Calcium 7.7 mg/dL (8.6-10.3); EGFR African American 46.8 (>60); EGFR Non-African American 38.7 (>60); Potassium 4.6 mmol/L (3.5-5.0)
[2018-09-14] MEDS: Cholecalciferol TAB* 1000 UNITS PO SCH (08:17)
[2018-09-14] MEDS: Carvedilol TAB* 6.25 MG PO SCH ×2 (08:17→22:02)
[2018-09-14] MEDS: amLODIPine TAB* 5 MG PO SCH (08:17)
[2018-09-14] MEDS: Sertraline* 50 MG TAB PO SCH (08:17)
[2018-09-14] MEDS: CMCS:Dabigatran CAP(NF) 150 MG CAP PO SCH ×2 (08:17→22:03)
[2018-09-14] MEDS: Furosemide IV* 10 MG/ML VIAL (40 MG) IV SCH (08:17)
--- NOTE | 2018-09-14 09:51 | PN ---
Subjective Date of Service: 09/14/18 Interval History: Pt refused to use BIPAP. HCP-daughter in law present by the bedside requested that pt not have BIPAP in the future and if she were to require it she may be made comfort care aftre d/w HCP. Pt still c/o SOB. Poor historian Family History: Findings - Mother had CAD, father of old age Social History: Findings - Lives at [facility], retired, son is HCP. She smoked decades ago, no alcohol or drug use Past Medical History: Findings - severe COPD, dementia, diastolic CHF, CAD, hypertension, CKD, Type 2 DM, a-fib Objective Active Medications: Acetaminophen (Tylenol Tab*) 650 mg PO Q6H PRN PRN Reason: PAIN Albuterol (Ventolin 2.5 Mg/3 Ml Neb.Amy*) 2.5 mg INH Q6H PRN PRN Reason: SHORTNESS OF BREATH Amlodipine Besylate (Norvasc Tab*) 5 mg PO DAILY [facility] Last Admin: 09/14/18 08:17 Dose: 5 mg Atorvastatin Calcium (Lipitor*) 10 mg PO QPM [facility]; Protocol Last Admin: 09/13/18 21:46 Dose: 10 mg Carvedilol (Coreg Tab*) 12.5 mg PO BID [facility] Last Admin: 09/14/18 08:17 Dose: 12.5 mg Cholecalciferol (Vitamin D Tab*) 2,000 units PO DAILY [facility] Last Admin: 09/14/18 08:17 Dose: 2,000 units Dabigatran (Pradaxa Cap(Nf)) 150 mg PO BID [facility] Last Admin: 09/14/18 08:17 Dose: 150 mg Dextrose (D50w Syringe 50 Ml*) 12.5 gm IV PUSH .FOR FS < 60 - SS PRN PRN Reason: FS < 60 Last Admin: 09/13/18 12:54 Dose: 25 gm Donepezil HCl (Aricept Tab*) 10 mg PO BEDTIME [facility] Last Admin: 09/13/18 21:46 Dose: 10 mg Furosemide (Lasix Iv*) 40 mg IV DAILY [facility] Last Admin: 09/14/18 08:17 Dose: 40 mg Dextrose/Sodium Chloride (D5ns 0.9% 1000 Ml Bag*) 1,000 mls @ 50 mls/hr IV PER RATE [facility] Last Admin: 09/13/18 16:27 Dose: 50 mls/hr Insulin Human Lispro (Humalog*) 0 units SUBCUT FS Q4 ICU [facility]; Protocol Last Admin: 09/14/18 07:52 Dose: Not Given Methylprednisolone Sodium Succinate (Solu-Medrol 40 Mg) 40 mg IV Q8H [facility] Last Admin: 09/14/18 08:17 Dose: 40 mg Metoprolol Tartrate (Lopressor Iv*) 5 mg IV Q6H PRN PRN Reason: TACHYCARDIA Last Admin: 09/13/18 12:51 Dose: 5 mg Morphine Sulfate (Morphine 4 Mg/Ml Vial (1 Ml)) 1 mg IV Q4H PRN PRN Reason: PAIN Last Admin: 09/13/18 15:19 Dose: 1 mg Ondansetron HCl (Zofran Inj*) 4 mg IV Q4H PRN PRN Reason: NAUSEA Sertraline HCl (Zoloft*) 50 mg PO DAILY [facility] Last Admin: 09/14/18 08:17 Dose: 50 mg Vital Signs - 8 hr 09/14/18 09/14/18 09/14/18 02:00 02:32 03:00 Temperature 98.8 F 99.0 F 99.1 F Pulse Rate 77 97 86 Respiratory 20 26 26 Rate Blood Pressure 112/61 126/78 120/66 (mmHg) O2 Sat by Pulse 96 95 95 Oximetry 09/14/18 09/14/18 09/14/18 03:30 04:00 04:31 Temperature 99.1 F 99.0 F 98.8 F Pulse Rate 85 81 94 Respiratory 25 23 23 Rate Blood Pressure 106/72 136/77 99/67 (mmHg) O2 Sat by Pulse 90 97 95 Oximetry 09/14/18 09/14/18 09/14/18 05:00 05:30 05:48 Temperature 98.6 F 98.4 F Pulse Rate 99 79 Respiratory 20 23 23 Rate Blood Pressure 123/73 126/87 (mmHg) O2 Sat by Pulse 94 95 Oximetry 09/14/18 09/14/18 09/14/18 06:00 06:30 07:00 Temperature 98.6 F 98.6 F 98.2 F Pulse Rate 107 90 91 Respiratory 23 20 24 Rate Blood Pressure 132/86 119/74 (mmHg) O2 Sat by Pulse 94 93 96 Oximetry 09/14/18 09/14/18 09/14/18 07:01 07:30 08:01 Temperature 98.2 F 98.4 F Pulse Rate 88 46 109 Respiratory 27 27 26 Rate Blood Pressure 131/113 143/102 150/87 (mmHg) O2 Sat by Pulse 97 87 92 Oximetry 09/14/18 09/14/18 09/14/18 08:24 08:30 09:00 Temperature 99.0 F 98.8 F 98.8 F Pulse Rate 102 102 91 Respiratory 29 19 25 Rate Blood Pressure 126/89 137/90 120/89 (mmHg) O2 Sat by Pulse 93 93 94 Oximetry 09/14/18 09/14/18 09:01 09:20 Temperature 98.8 F Pulse Rate 100 Respiratory 27 25 Rate Blood Pressure (mmHg) O2 Sat by Pulse 94 Oximetry Oxygen Devices in Use Now: Simple Face Mask - 02 at 15L Appearance: 78 yo F in nAD, oriented to self and place, poor historian Eyes: No Scleral Icterus, PERRLA Ears/Nose/Mouth/Throat: NL Teeth, Lips, Gums, Mucous Membranes Moist Neck: NL Appearance and Movements; NL JVP, Trachea Midline Respiratory: Symmetrical Chest Expansion and Respiratory Effort, - - rales b/l bases Cardiovascular: - - irregular Abdominal: NL Sounds; No Tenderness; No Distention, No Hepatosplenomegaly Lymphatic: No Cervical Adenopathy Extremities: No Clubbing, Cyanosis, - - trace pedal edema b/l Skin: No Nodules or Sclerosis, - - stage 2 nonblanchable skin decub at sacrum at 15 cm in diam with small open area on left buttock at 1 cm -not infected Neurological: Alert and Oriented x 3, NL Muscle Strength and Tone Result Diagrams: 09/14/18 05:45 09/14/18 05:45 Additional Lab and Data: Laboratory Tests 09/13/18 09/13/18 09/13/18 03:24 03:24 03:35 INR (Anticoag Therapy) 1.44 H APTT 58.6 H ABG pH 7.23 L ABG pCO2 74 H* ABG pO2 68 L ABG HCO3 25.8 Glucose 72 Calcium 8.4 L Troponin I 0.03 Microbiology and Other Data: Microbiology 09/13/18 06:21 Nasal Screen MRSA (PCR) - Final Nasal Mrsa Not Detected Diagnostic Imaging: CXR: pulmonary edema EKG Data: A-fib, LBBB Assess/Plan/Problems-Billing Assessment: 78 year old woman with acute on chronic hypercarbic and hypoxic respiratory failure due to CHF - Patient Problems (1) Acute and chronic respiratory failure with hypercapnia Current Visit: Yes Comment: -Patient is DNR, refused BIPAP. HCP) agre that pt should not have any more BIPAP. so far doing resonably well on 02 mask -Will monitor in ICU, continue to diurese -Unclear whether diet is managed at SNF appropriately -con palliative care consult (2) Diastolic CHF, acute on chronic Comment: -cont daily Lasix IV, diuresing well (3) CKD (chronic kidney disease) Comment: at baseline, stage 3 due to DM, slight increase today, but with significant resp failure. Will cont Lasix Est GFR 46.7 08/23/18. (4) COPD (chronic obstructive pulmonary disease) Comment: with mild exacerbation cont Solu Medrol (5) Afib Comment: -Continue dabigatran, carvedilol. (6) HTN (hypertension) Comment: - controled - Continue carvedilol and IV furosemide today. Amlodipine added as well. (7) Type 2 diabetes mellitus Comment: cont ISS Lantus held due to hypoglycemia and D5 infusion started last night. will reintroduce diet now, since off BIPAP (8) DVT prophylaxis Comment: - Continue dabigatran (9) DNR (do not resuscitate) Comment: DNR/DNI. No BIPAP. Palliative care consult placed Status and Disposition: Inpatient
[2018-09-14] MEDS: Morphine 4 MG/ML VIAL (1 ml) 4 MG/ML VIAL IV PRN ×2 (10:48→16:00)
[2018-09-14] MEDS: Atorvastatin* 10 MG TAB PO SCH (17:54)
[2018-09-14] MEDS ORDERED: Insulin LISPRO* 1 UNITS UNIT SUBCUT ONE (21:41)
[2018-09-14] MEDS: Donepezil TAB* 5 MG PO SCH (22:01)
[2018-09-15] MEDS: methylPREDNISolone SOD 40 MG* 1 ML VIAL IV SCH ×2 (04:06→10:35)
[2018-09-15 06:28] LABS: ABS Basophils 0 10^3/ul (0-0.2); ABS Eosinophils 0 10^3/ul (0-0.6); ABS Lymphocytes 0.4 10^3/ul (1.0-4.8); ABS Monocytes 0.6 10^3/ul (0-0.8); ABS Neutrophils 8.7 10^3/ul (1.5-7.7); ABS Nucleated RBC 0 10^3/ul; Eosinophil % 0 %; Hematocrit 37 % (33-41); Hemoglobin 11.9 g/dL (12.0-16.0); Lymphocyte % 3.9 %; Mean Corpuscular HGB Conc 32 g/dL (31-36); Mean Corpuscular Hemoglobin 29 pg (27-31); Mean Corpuscular Volume 91 fL (80-97); Nucleated Red Blood Cells % 0.1; Platelet Count 260 10^3/uL (150-450); Red Blood Count 4.06 10^6 /uL (3.70-4.87); Red Cell Distribution Width 17 % (10.5-15); White Blood Count 9.7 10^3/uL (3.5-10.8)
[2018-09-15 06:48] LABS: Calcium 7.9 mg/dL (8.6-10.3); EGFR African American 32.6 (>60); EGFR Non-African American 26.9 (>60); Potassium 5.1 mmol/L (3.5-5.0)
[2018-09-15] MEDS: Insulin LISPRO* 1 UNITS UNIT SUBCUT SCH ×2 (09:15→12:52)
[2018-09-15] MEDS: Carvedilol TAB* 6.25 MG PO SCH (09:16)
[2018-09-15] MEDS: amLODIPine TAB* 5 MG PO SCH (09:16)
[2018-09-15] MEDS: Cholecalciferol TAB* 1000 UNITS PO SCH (09:16)
[2018-09-15] MEDS: CMCS:Dabigatran CAP(NF) 150 MG CAP PO SCH (09:23)
[2018-09-15] MEDS: Sertraline* 50 MG TAB PO SCH (09:26)
[2018-09-15] MEDS ORDERED: Morphine 4 MG/ML VIAL (1 ml) 4 MG/ML VIAL IV PRN (12:40)
--- NOTE | 2018-09-15 12:48 | PN ---
Subjective Date of Service: 09/15/18 Interval History: Pt still requires 15 l of 02, very lethargic, falls asleep in mid sentence. Denies pain. Ate good breakfast as per d/w RN. Spoke with Mayte (HCP) and updated about pt's status. Mayte decided to make pt comfort care. we discussed medications that can be stopped but could be continued including diabetic meds, inuslin as well as Pradaxa, zoloft, Aricept. Mayte requested for all the meds to be stopped apart for morphine and meds that provide comfort care. Family History: Findings - Mother had CAD, father of old age Social History: Findings - Lives at [facility], retired, son is HCP. She smoked decades ago, no alcohol or drug use Past Medical History: Findings - severe COPD, dementia, diastolic CHF, CAD, hypertension, CKD, Type 2 DM, a-fib Objective Active Medications: Acetaminophen (Tylenol Tab*) 650 mg PO Q6H PRN PRN Reason: PAIN Atropine Sulfate (Atropine 1% (Oral/Sl)*) 2 drop SL Q2H PRN PRN Reason: DISCOMFORT Morphine Sulfate (Morphine Inj (Syringe)*) 1 mg IV Q2H PRN PRN Reason: PAIN Morphine Sulfate (Morphine Oral Concentrate*) 5 mg PO Q2H PRN PRN Reason: PAIN Vital Signs - 8 hr 09/15/18 07:54 Temperature 98.2 F Pulse Rate 81 Respiratory 16 Rate Blood Pressure 109/65 (mmHg) O2 Sat by Pulse 96 Oximetry Oxygen Devices in Use Now: OxyMask Appearance: 78 yo F in nAD, aAOx1, lethargic Eyes: No Scleral Icterus, PERRLA Ears/Nose/Mouth/Throat: NL Teeth, Lips, Gums, Mucous Membranes Moist Neck: NL Appearance and Movements; NL JVP Respiratory: Symmetrical Chest Expansion and Respiratory Effort, Clear to Auscultation - at b/l bases, - Cardiovascular: - - irregular Abdominal: NL Sounds; No Tenderness; No Distention, No Hepatosplenomegaly Lymphatic: No Cervical Adenopathy Extremities: No Clubbing, Cyanosis, - - +2 pitting pedal edema b/l Skin: No Nodules or Sclerosis, - - sacral decubitus stage 2 not evaluated today Neurological: - - generalized weakness, no focal deficit, speech clear Result Diagrams: 09/15/18 05:48 09/15/18 05:48 Additional Lab and Data: Laboratory Tests 09/13/18 09/13/18 09/13/18 03:24 03:24 03:35 INR (Anticoag Therapy) 1.44 H APTT 58.6 H ABG pH 7.23 L ABG pCO2 74 H* ABG pO2 68 L ABG HCO3 25.8 Glucose 72 Calcium 8.4 L Troponin I 0.03 Microbiology and Other Data: Microbiology 09/13/18 06:21 Nasal Screen MRSA (PCR) - Final Nasal Mrsa Not Detected Diagnostic Imaging: CXR: pulmonary edema EKG Data: A-fib, LBBB Assess/Plan/Problems-Billing Assessment: 78 year old woman with acute on chronic hypercarbic and hypoxic respiratory failure due to CHF - Patient Problems (1) Acute and chronic respiratory failure with hypercapnia Current Visit: Yes Comment: -Patient is DNR, refused BIPAP. HCP-Mayte requested comfort care today. -morphine, atropine started -try to wean down 02 (2) Diastolic CHF, acute on chronic Comment: comfort care (3) CKD (chronic kidney disease) Comment: comfort care (4) COPD (chronic obstructive pulmonary disease) Comment: comfort care (5) Afib Comment: d/c dabigatran, carvedilol. Comfort care (6) HTN (hypertension) Comment: d/c all medications-comfort care (7) Type 2 diabetes mellitus Comment: d/c insulin, fingersticks, cont comfort care (8) DVT prophylaxis Comment: comfort care (9) DNR (do not resuscitate) Comment: DNR/DNI. No BIPAP. comfort care Status and Disposition: Inpatient
[2018-09-15 12:49] VITALS: BP 97/55
[2018-09-15] MEDS: Furosemide IV* 10 MG/ML VIAL (40 MG) IV SCH (12:52)
[2018-09-15] MEDS ORDERED: Atropine 1% (ORAL/SL)* 15 ML BTL SL PRN (13:00)
[2018-09-16] MEDS: Morphine ORAL CONCENTRATE* 5 MG/0.25 ML ORAL.SYRIN PO PRN ×4 (07:50→16:15)
[2018-09-16] MEDS ORDERED: predniSONE TAB* 50 MG PO SCH (09:00)
[2018-09-16] MEDS ORDERED: LORazepam TAB(*) 1 MG PO PRN (10:10)
--- NOTE | 2018-09-16 11:43 | PN ---
Subjective Date of Service: 09/16/18 Interval History: Pt is merely awake today, when asked how she is she stated" I don't know" Seen with HCP daughter in law Mayte, by the bedside Family History: Findings - Mother had CAD, father of old age Social History: Findings - Lives at [facility], retired, son is HCP. She smoked decades ago, no alcohol or drug use Past Medical History: Findings - severe COPD, dementia, diastolic CHF, CAD, hypertension, CKD, Type 2 DM, a-fib Objective Active Medications: Acetaminophen (Tylenol Tab*) 650 mg PO Q6H PRN PRN Reason: PAIN Atropine Sulfate (Atropine 1% (Oral/Sl)*) 2 drop SL Q2H PRN PRN Reason: DISCOMFORT Lorazepam (Ativan Tab(*)) 1 mg PO Q4H PRN PRN Reason: ANXIETY Last Admin: 09/16/18 11:11 Dose: 1 mg Morphine Sulfate (Morphine 4 Mg/Ml Vial (1 Ml)) 1 mg IV Q2H PRN PRN Reason: PAIN Morphine Sulfate (Morphine Oral Concentrate*) 10 mg PO Q2H PRN PRN Reason: PAIN Vital Signs - 8 hr 09/16/18 09/16/18 09/16/18 07:50 08:27 10:08 Respiratory 26 20 22 Rate 09/16/18 11:11 Respiratory 20 Rate Oxygen Devices in Use Now: High Flow Nasal Cannula Appearance: 78 yo F in nAD, AAOx1 Eyes: No Scleral Icterus, PERRLA Ears/Nose/Mouth/Throat: NL Teeth, Lips, Gums, Mucous Membranes Moist Neck: NL Appearance and Movements; NL JVP, Trachea Midline Respiratory: Symmetrical Chest Expansion and Respiratory Effort, - - b/l rales noted Cardiovascular: - - irregular Abdominal: NL Sounds; No Tenderness; No Distention, No Hepatosplenomegaly Lymphatic: No Cervical Adenopathy Extremities: No Clubbing, Cyanosis, - - diffuse edema in all extremities Skin: No Nodules or Sclerosis Neurological: - - deferred, comfort care Result Diagrams: 09/15/18 05:48 09/15/18 05:48 Additional Lab and Data: Laboratory Tests 09/13/18 09/13/18 09/13/18 03:24 03:24 03:35 INR (Anticoag Therapy) 1.44 H APTT 58.6 H ABG pH 7.23 L ABG pCO2 74 H* ABG pO2 68 L ABG HCO3 25.8 Glucose 72 Calcium 8.4 L Troponin I 0.03 Microbiology and Other Data: Microbiology 09/13/18 06:21 Nasal Screen MRSA (PCR) - Final Nasal Mrsa Not Detected Diagnostic Imaging: CXR: pulmonary edema EKG Data: A-fib, LBBB Assess/Plan/Problems-Billing Assessment: 78 year old woman with acute on chronic hypercarbic and hypoxic respiratory failure due to CHF - Patient Problems (1) Acute and chronic respiratory failure with hypercapnia Current Visit: Yes Comment: -Patient is DNR, refused BIPAP. HCP-Mayte requested comfort care -starte on 09/15/18 -morphine, atropine cont, will start lorazepam prn -try to wean down 02 (2) Diastolic CHF, acute on chronic Comment: comfort care (3) CKD (chronic kidney disease) Comment: comfort care (4) COPD (chronic obstructive pulmonary disease) Comment: comfort care (5) Afib Comment: d/c dabigatran, carvedilol. Comfort care (6) HTN (hypertension) Comment: comfort care (7) Type 2 diabetes mellitus Comment: d/c insulin, fingersticks, cont comfort care (8) DVT prophylaxis Comment: comfort care (9) DNR (do not resuscitate) Comment: DNR/DNI. No BIPAP. comfort care Status and Disposition: Inpatient
--- NOTE | 2018-09-17 08:15 | DS ---
CC: Dr. Maren Longoria * DISCHARGE SUMMARY/ NOTE: DATE OF ADMISSION: 09/13/18 DATE OF : 09/17/18 PRIMARY CARE PROVIDER: Dr. Maren Longoria. DISCHARGE DIAGNOSES: 1. Diastolic congestive heart failure. 2. Acute on chronic respiratory failure with hypercapnia. 3. Chronic kidney disease, stage 3 to 4. 4. Dementia. 5. Type 2 diabetes. 6. Atrial fibrillation. HOSPITAL COURSE: Mrs. Agarwal was a 78-year-old lady with past medical history as stated above, who presented to the emergency room from [facility] with hypoxia. For more details about her presentation, I refer you to her history and physical. The impression was that the patient had CHF exacerbation causing her worse in oxygenation. The patient did not show any significant improvement. She refused BiPAP. After reviewing the patient's condition and prognosis, her healthcare proxy requested comfort care measures only, that was started on 09/15/18. The patient on 09/17/18 at 1:40 a.m. TIME SPENT: Approximately 45 minutes was spent to complete this discharge. [id number]/[facility] #: [id number] MTDNely
== END 2018-09-17 01:40 | disposition expired | DRG 291 ==
LOC: ED 03:13 → ICU 04:54 → MED 09-14 15:01
PROVIDERS: ADMIT Internal Medicine; ATTEND Internal Medicine
PROC: 5A09357 Assistance with Respiratory Ventilation, Less than 24 Consecutive Hours, Continuous Positive Airway Pressure (ICD-10-PCS; principal; 2018-09-13)
DX: I13.0 Hypertensive heart and chronic kidney disease with heart failure and stage 1 through stage 4 chronic kidney disease, or unspecified chronic kidney disease (principal); J96.22 Acute and chronic respiratory failure with hypercapnia; I50.33 Acute on chronic diastolic (congestive) heart failure; J96.21 Acute and chronic respiratory failure with hypoxia; J44.1 Chronic obstructive pulmonary disease with (acute) exacerbation; I25.10 Atherosclerotic heart disease of native coronary artery without angina pectoris; E78.00 Pure hypercholesterolemia, unspecified; K21.9 Gastro-esophageal reflux disease without esophagitis; M19.042 Primary osteoarthritis, left hand; M19.041 Primary osteoarthritis, right hand; M17.0 Bilateral primary osteoarthritis of knee; F41.9 Anxiety disorder, unspecified; I48.2 Chronic atrial fibrillation; F32.9 Major depressive disorder, single episode, unspecified; F03.90 Unspecified dementia, unspecified severity, without behavioral disturbance, psychotic disturbance, mood disturbance, and anxiety; N18.3 Chronic kidney disease, stage 3 (moderate); E11.36 Type 2 diabetes mellitus with diabetic cataract; E11.39 Type 2 diabetes mellitus with other diabetic ophthalmic complication; H42 Glaucoma in diseases classified elsewhere; E66.01 Morbid (severe) obesity due to excess calories; I44.7 Left bundle-branch block, unspecified; E11.22 Type 2 diabetes mellitus with diabetic chronic kidney disease; Z82.49 Family history of ischemic heart disease and other diseases of the circulatory system; Z87.891 Personal history of nicotine dependence; Z86.73 Personal history of transient ischemic attack (TIA), and cerebral infarction without residual deficits; Z51.5 Encounter for palliative care; Z66 Do not resuscitate
CPT/HCPCS: 36415; 36600; 71045; 80048; 80053; 82803; 82947; 84484; 85025; 85610; 85730; 86140; 87040; 87641; 93005; 99285; A9270-GY; J1940; J2270; J2405; J2920; J3490